=== PATIENT | male | born 1995 | race Caucasian/White ===

== ENCOUNTER 2016-08-12 19:21 | Inpatient (IN) | payer OTHER ==
[2016-08-12 19:47] VITALS: BMI 20.1
--- NOTE | 2016-08-12 20:39 | HP ---
COWS - Scale Resting Pulse: 1= [place] 81-100 Sweatin= Chills/Flushing Restless Observation: 3= Extraneous Movement Pupil Size: 1= Pupils >than Normal Bone or Joint Aches: 4=Acute Joint/Muscle Pain Runny Nose/ Eye Tearin= None GI Upset > 30mins: 3= Vomiting/Diarrhea Tremor Observation: 2= Slight Tremor Visible Yawning Observation: 0= None Anxiety or Irritability: 2=Irritable/Anxious Goose Flesh Skin: 0=Smooth Skin COWS Score: 17 CIWA Score - CIWA Score Nausea/Vomitin Muscle Tremors: 4-Moderate,w/Arms Extend Anxiety: 4-Mod. Anxious/Guarded Agitation: 4-Moderately Restless Paroxysmal Sweats: 3 Orientation: 1-Uncertain about Date Tacttile Disturbances: 1-Very Mild Itch/Numbness Auditory Disturbances: 1-Very Mild Visual Disturbances: 1-Very Mild Sensitivity Headache: 3-Moderate CIWA-Ar Total Score: 25 Admission ROS BHS - HPI Chief Complaint: WITHDRAWAL SX'S. SEEKING DETOX TXMENT Allergies/Adverse Reactions: Allergies Allergy/AdvReac Type Severity Reaction Status Date / Time No Known Allergies Allergy Verified 08/12/16 20:30 History of Present Illness: 20 Y.O. MALE WITH POLYSUBSTANCE ABUSE. HERE FOR DETOX FROM HEROIN AND XANAX. CLIENT STATES THIS IS HIS FIRST TIME IN DETOX. DENIES ANY CLEAN TIME. CLIENT IS ERITREAN SPEAKING. 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 Exam Limitations: No Limitations - Ebola screening Have you traveled outside of the country in the last 21 days: No Have you had contact with anyone from an Ebola affected area: No Have you been sick,other than usual withdrawal symptoms: No Do you have a fever: No - Review of Systems Constitutional: Chills, Loss of Appetite, Malaise, Night Sweats, Changes in sleep EENT: reports: No Symptoms Reported Respiratory: reports: No Symptoms reported Cardiac: reports: No Symptoms Reported GI: reports: Poor Appetite, Poor Fluid Intake, Indigestion, Abdominal cramping : reports: No Symptoms Reported Musculoskeletal: reports: Back Pain Integumentary: reports: No Symptoms Reported Neuro: reports: No Symptoms reported Endocrine: reports: No Symptoms Reported Hematology: reports: No Symptoms Reported Psychiatric: reports: Anxious Other Systems: Reviewed and Negative Patient History - Patient Medical History Hx Anemia: No Hx Asthma: No Hx Chronic Obstructive Pulmonary Disease (COPD): No Hx Cancer: No Hx Cardiac Disorders: No Hx Congestive Heart Failure: No Hx Hypertension: No Hx Hypercholesterolemia: No Hx Pacemaker: No HX Cerebrovascular Accident: No Hx Seizures: No Hx Dementia: No Hx Diabetes: No Hx Gastrointestinal Disorders: No Hx Liver Disease: No Hx Genitourinary Disorders: No Hx Sexually Transmitted Disorders: No Hx Renal Disease (ESRD): No Hx Thyroid Disease: No Hx Human Immunodeficiency Virus (HIV): No Hx Hepatitis C: No Hx Depression: No Hx Suicide Attempt: No Hx Bipolar Disorder: No Hx Schizophrenia: No Other Medical History: ANXIETY - Patient Surgical History Past Surgical History: No - PPD History Previous Implant?: Yes Documented Results: Negative w/o proof Implanted On Prior [facility] Admission?: No PPD to be Administered?: Yes - Smoking Cessation Smoking history: Current every day smoker Aproximately how many cigarettes per day: 20 Cigars Per Day: 0 Hx Chewing Tobacco Use: No Initiated information on smoking cessation: Yes 'Breaking Loose' booklet given: 08/12/16 - Substance & Tx. History Hx Alcohol Use: No Hx Substance Use: Yes Substance Use Type: Heroin, Tranquilizers (XANAX) - Substances Abused HEROIN Route: Injection Frequency: Daily Amount used: 8 BAGS Age of first use: 17 Date of Last Use: 08/11/16 XANAX Route: Oral Frequency: Daily Amount used: 8 MG Age of first use: 20 Date of Last Use: 08/11/16 Family Disease History - Family Disease History Family History: Unable to Obtain Admission Physical Exam BHS - Vital Signs Vital Signs: Vital Signs - 24 hr 08/12/16 19:45 Temperature 98.5 F Pulse Rate 100 H Respiratory 18 Rate Blood Pressure 131/80 - Physical General Appearance: Yes: Mild Distress, Thin, Tremorous, Anxious HEENTM: Yes: Normocephalic, VELMA, Pharynx Normal, Other (LARGE PUPILS) Respiratory: Yes: Chest Non-Tender, Lungs Clear, Normal Breath Sounds, No Respiratory Distress, No Accessory Muscle Use Neck: Yes: No masses,lesions,Nodules, Supple, Trachea in good position Breast: Yes: Breast Exam Deferred Cardiology: Yes: Regular Rhythm, S1, S2, Tachycardia Abdominal: Yes: Normal Bowel Sounds, Non Tender, Flat, Soft, Increased Bowel Sounds Genitourinary: Yes: Within Normal Limits Back: Yes: Normal Inspection Musculoskeletal: Yes: full range of Motion, Gait Steady Extremities: Yes: Normal Capillary Refill, Normal Range of Motion, Non-Tender, Tremors Neurological: Yes: Alert, Motor Strength 5/5 Integumentary: Yes: Normal Color, Warm, Moist, Track Abdi Lymphatic: Yes: Within Normal Limits - Diagnostic (1) Opioid dependence with withdrawal Current Visit: Yes Status: Chronic (2) Cannabis dependence, uncomplicated Current Visit: Yes Status: Chronic (3) Sedative, hypnotic or anxiolytic dependence with withdrawal, uncomplicated Current Visit: Yes Status: Chronic (4) Nicotine dependence Current Visit: Yes Status: Chronic Qualifiers: Nicotine product type: cigarettes Substance use status: uncomplicated Qualified Code(s): F17.210 - Nicotine dependence, cigarettes, uncomplicated Cleared for Admission [facility] - Detox or Rehab [facility] Level of Care: Medically Managed Detox Regimen/Protocol: Methadone/Valium [facility] Breath Alcohol Content Breath Alcohol Content: 0 Urine Drug Screen - Results Urine Drug Screen Results: OPI-Opiates, BZO-Benzodiazepines, TCA-Tricyclic Antidepress, OXY-Oxycodone
[2016-08-12] MEDS ORDERED: P-EPHED 60MG/TRIPROLIDI 2.5MG TABLET PO PRN (21:02)
[2016-08-12] MEDS ORDERED: MAG HYDROX/AL HYDROX/SIMETH 30 ML UNIT-DOSE CUP PO PRN (21:02)
[2016-08-12] MEDS ORDERED: METHADONE HCL 10 MG TABLET (FOR DETOX USE ONLY) PO ONE ×2 (21:02→23:00)
[2016-08-12] MEDS ORDERED: diphenhydrAMINE HCL 50 MG CAPSULE PO PRN (21:02)
[2016-08-12] MEDS ORDERED: LOPERAMIDE HCL 2 MG CAPSULE PO PRN (21:02)
[2016-08-12] MEDS ORDERED: diazePAM 5 MG TABLET PO ONE (21:02)
[2016-08-12] MEDS ORDERED: MENTHOL/PHENOL 1 EACH UD MM PRN (21:02)
[2016-08-12] MEDS ORDERED: guaiFENesin/D-METHORPHAN HB 10 ML UNIT-DOSE CUPS PO PRN (21:02)
[2016-08-12] MEDS ORDERED: MAGNESIUM HYDROX 2400MG/30ML ORAL SUSPENSION 30 ML CUP PO PRN (21:02)
[2016-08-12] MEDS ORDERED: hydrOXYzine PAMOATE 50 MG CAPSULE (FP) PO PRN (21:02)
[2016-08-12] MEDS ORDERED: MAGNESIUM CITRATE 300 ML BOTTLE PO PRN (21:02)
[2016-08-12] MEDS ORDERED: NICOTINE POLACRILEX 2 MG GUM BC PRN (21:02)
[2016-08-12] MEDS: THIAMINE HCL 100 MG TABLET (FP) PO SCH (21:34)
[2016-08-12] MEDS: ACETAMINOPHEN 325 MG TABLET (FP) PO PRN (21:38)
[2016-08-12] MEDS: NICOTINE 21 MG/24 HOURS TOPICAL PATCH TD SCH (21:47)
[2016-08-12] MEDS: diazePAM 5 MG TABLET PO SCH (22:46)
[2016-08-12 23:35] LABS: URINE APPEARANCE CLEAR; URINE BILIRUBIN NEGATIVE (NEGATIVE); URINE BLOOD NEGATIVE (NEGATIVE); URINE COLOR LTYELLOW; URINE GLUCOSE (UA) NEGATIVE (NEGATIVE); URINE KETONE NEGATIVE (NEGATIVE); URINE LEUK ESTERASE NEGATIVE (NEGATIVE); URINE NITRITE NEGATIVE (NEGATIVE); URINE UROBILINOGEN NEGATIVE E.U./dl (0.2-1.0)
[2016-08-12 23:36] LABS: URINE PROTEIN 1+ (NEGATIVE)
[2016-08-12 23:38] LABS: URINE MUCUS FEW; URINE RBC 1 /hpf (0-3); URINE WBC <1 /hpf (3-5)
[2016-08-13] MEDS: diazePAM 5 MG TABLET PO SCH ×3 (05:52→22:18)
[2016-08-13 09:14] LABS: MCH 30.2 pg (25.7-33.7); MEAN CELL VOLUME 91.4 fl (80-96); MEAN PLT VOLUME 7.9 fl (7.5-11.1); PLATELET COUNT 283 K/MM3 (134-434); RDW 15.4 % (11.9-15.9); WHITE BLOOD COUNT 4.4 K/mm3 (4.0-10.0)
[2016-08-13 09:20] LABS: ALBUMIN 3.5 g/dl (3.4-5.0); ANION GAP 8 (8-16); BILIRUBIN,TOTAL 0.4 mg/dL (0.2-1.0); CO2 30 mmol/L (21-32); CREATININE 0.7 mg/dL (0.7-1.3); GLUCOSE,RANDOM 80 mg/dL (74-106); SGOT/AST 32 U/L (15-37); SGPT/ALT 32 U/L (12-78); TOT PROT 7.3 g/dl (6.4-8.2)
[2016-08-13 09:21] LABS: ALK PHOS 116 U/L (45-117)
[2016-08-13] MEDS ORDERED: METHADONE HCL 10 MG TABLET (FOR DETOX USE ONLY) PO SCH (10:00)
[2016-08-13] MEDS: NICOTINE 21 MG/24 HOURS TOPICAL PATCH TD SCH (10:10)
[2016-08-13] MEDS: PRENATAL VITAMINS W/ FOLIC ACID TABLET (FP) PO SCH (10:11)
[2016-08-13] MEDS: diazePAM 5 MG TABLET PO PRN (10:11)
--- NOTE | 2016-08-13 10:35 | CONSULT ---
[facility] Psychiatric Consult - Data Date of interview: 08/13/16 Admission source: [facility] Identifying data: First admission to [facility] for this 20 y/o male seeking detox treatment on for heroin,marijuana and benzodiazepine ( xanax) dependence.Patient is without children,homeless (lives in prison with ),unemployed and reportedly deprived of any source of income. Substance Abuse History: - Smoking Cessation. Smoking history: Current every day smoker. Aproximately how many cigarettes per day: 20. Cigars Per Day: 0. Hx Chewing Tobacco Use: No. Initiated information on smoking cessation: Yes. ' Breaking Loose' booklet given: 08/12/16. - Substance & Tx. History. Hx Alcohol Use: No. Hx Substance Use: Yes. Substance Use Type: Heroin, Tranquilizers (XANAX). - Substances Abused. HEROIN. Route: Injection. Frequency: Daily. Amount used: 8 BAGS. Age of first use: 17. Date of Last Use : 08/11/16. XANAX. Route: Oral. Frequency: Daily. Amount used: 8 MG. Age of first use: 20. Date of Last Use: 08/11/16. Discussed in session.Patient confirms this pattern of substance abuse. Medical History: Patient reports good general health. Psychiatric History: Patient denies. Physical/Sexual Abuse/Trauma History: No reported history of sexual abuse. Additional Comment: Urine Drug Screen Results: OPI-Opiates, BZO-Benzodiazepines , TCA-Tricyclic Antidepress, OXY-Oxycodone.Noted. Mental Status Exam - Mental Status Exam Alert and Oriented to: Time, Place, Person Cognitive Function: Good Patient Appearance: Disheveled (tattoos on arms) Mood: Nervous, Withdrawn, Irritable Affect: Mood Congruent Patient Behavior: Fatigued, Guarded Speech Pattern: Clear (in lao;limited ability to speak turkish) Voice Loudness: Normal Thought Process: Goal Oriented Thought Disorder: Not Present Hallucinations: Denies Suicidal Ideation: Denies Homicidal Ideation: Denies Insight/Judgement: Poor Sleep: Poorly, Difficulty falling asleep Appetite: Fair Muscle strength/Tone: Normal Gait/Station: Normal Psychiatric Findings - Problem List ([place] 1, 2,3) (1) Cannabis dependence, uncomplicated Current Visit: Yes Status: Acute (2) Nicotine dependence Current Visit: Yes Status: Acute Qualifiers: Nicotine product type: cigarettes Substance use status: uncomplicated Qualified Code(s): F17.210 - Nicotine dependence, cigarettes, uncomplicated (3) Opioid dependence with withdrawal Current Visit: Yes Status: Acute (4) Sedative, hypnotic or anxiolytic dependence with withdrawal, uncomplicated Current Visit: Yes Status: Acute (5) Insomnia Current Visit: Yes Status: Acute - Initial Treatment Plan Initial Treatment Plan: Psychoeducation.Detoxification.Insomnia is addressed with zolpidem 5 mg po hs prn (no scripts at discharge).Patient made aware of the time-limited aspect of ambien use (hospital course)and the risk of parasomnias.He agrees with this careplan.Observation.
--- NOTE | 2016-08-13 10:46 | PN ---
S CIWA - CIWA Score Nausea/Vomitin Muscle Tremors: 4-Moderate,w/Arms Extend Anxiety: 4-Mod. Anxious/Guarded Agitation: 4-Moderately Restless Paroxysmal Sweats: 3 Orientation: 0-Oriented Tacttile Disturbances: 1-Very Mild Itch/Numbness Auditory Disturbances: 0-None Visual Disturbances: 0-None Headache: 0-None Present CIWA-Ar Total Score: 19 BHS COWS - Scale Resting Pulse: 1= [place] 81-100 Sweatin= Chills/Flushing Restless Observation: 1= Difficult to Sit Still Pupil Size: 1= Pupils >than Normal Bone or Joint Aches: 1= Mild Discomfort Runny Nose/ Eye Tearin= Nasal Congestion GI Upset > 30mins: 2= Nausea/Diarrhea Tremor Observation of Outstretched Hands: 2= Slight Tremor Visible Yawning Observation: 1= 1-2x During Session Anxiety or Irritability: 2=Irritable/Anxious Goose Flesh Skin: 3=Piloerection COWS Score: 16 S Progress Note (SOAP) Subjective: nausea, sweats, interrupted sleep, anxiety, tremors Objective: 08/13/16 10:45 Vital Signs - 24 hr 08/12/16 08/12/16 08/13/16 19:45 22:15 00:13 Temperature 98.5 F 98.6 F Pulse Rate 100 H 96 H Respiratory 18 18 18 Rate Blood Pressure 131/80 130/78 08/13/16 08/13/16 08/13/16 03:33 06:20 09:48 Temperature 97.0 F L 96.4 F L Pulse Rate 59 L 85 Respiratory 18 16 18 Rate Blood Pressure 108/68 115/64 Laboratory Tests 08/12/16 08/13/16 08/13/16 22:12 07:45 07:45 WBC 4.4 RBC 4.76 Hgb 14.4 Hct 43.5 MCV 91.4 MCHC 33.0 RDW 15.4 Plt Count 283 MPV 7.9 Sodium 139 Potassium 4.9 Chloride 101 Carbon Dioxide 30 Anion Gap 8 BUN 11 Creatinine 0.7 Creat Clearance w eGFR > 60 Random Glucose 80 Calcium 9.0 Total Bilirubin 0.4 AST 32 ALT 32 Alkaline Phosphatase 116 Total Protein 7.3 Albumin 3.5 Urine Color Ltyellow Urine Appearance Clear Urine pH 9.0 H Ur Specific [place] 1.018 Urine Protein 1+ H Urine Glucose (UA) Negative Urine Ketones Negative Urine Blood Negative Urine Nitrite Negative Urine Bilirubin Negative Urine Urobilinogen Negative Ur Leukocyte Esterase Negative Urine RBC 1 Urine WBC <1 Urine Mucus Few Assessment: 08/13/16 10:45 withdrawal sx Plan: cont detox, fluids, ensure
--- NOTE | 2016-08-13 10:47 | EKG ---
Test Reason : Blood Pressure : / mmHG Vent. Rate : 093 BPM Atrial Rate : 093 BPM P-R Int : 148 ms QRS Dur : 094 ms QT Int : 350 ms P-R-T Axes : 074 073 051 degrees QTc Int : 435 ms NORMAL SINUS RHYTHM NO PREVIOUS ECGS AVAILABLE Confirmed by HERB JOSE MD ([id number]) on 08/13/2016 10:46:49 AM Referred By: Isidoro Arias Confirmed By:HERB JOSE MD
[2016-08-13] MEDS ORDERED: ZOLPIDEM TARTRATE 5 MG TABLET PO PRN (22:00)
[2016-08-13] MEDS: THIAMINE HCL 100 MG TABLET (FP) PO SCH (22:18)
[2016-08-14] MEDS: diazePAM 5 MG TABLET PO PRN ×3 (06:11→19:30)
[2016-08-14] MEDS: ACETAMINOPHEN 325 MG TABLET (FP) PO PRN (08:00)
[2016-08-14] MEDS: PRENATAL VITAMINS W/ FOLIC ACID TABLET (FP) PO SCH (10:10)
[2016-08-14] MEDS: METHADONE HCL 5 MG TABLET (FOR DETOX USE ONLY) PO SCH (10:10)
[2016-08-14] MEDS: diazePAM 5 MG TABLET PO SCH ×2 (10:10→22:29)
[2016-08-14] MEDS: NICOTINE 21 MG/24 HOURS TOPICAL PATCH TD SCH (10:11)
--- NOTE | 2016-08-14 11:21 | PN ---
S CIWA - CIWA Score Nausea/Vomitin Muscle Tremors: 4-Moderate,w/Arms Extend Anxiety: 4-Mod. Anxious/Guarded Agitation: 4-Moderately Restless Paroxysmal Sweats: 3 Orientation: 0-Oriented Tacttile Disturbances: 1-Very Mild Itch/Numbness Auditory Disturbances: 0-None Visual Disturbances: 0-None Headache: 0-None Present CIWA-Ar Total Score: 19 BHS COWS - Scale Resting Pulse: 1= [place] 81-100 Sweatin= Chills/Flushing Restless Observation: 1= Difficult to Sit Still Pupil Size: 1= Pupils >than Normal Bone or Joint Aches: 1= Mild Discomfort Runny Nose/ Eye Tearin= Nasal Congestion GI Upset > 30mins: 2= Nausea/Diarrhea Tremor Observation of Outstretched Hands: 2= Slight Tremor Visible Yawning Observation: 1= 1-2x During Session Anxiety or Irritability: 2=Irritable/Anxious Goose Flesh Skin: 3=Piloerection COWS Score: 16 S Progress Note (SOAP) Subjective: nausea, sweats, interrupted sleep, anxiety, tremors Objective: 08/14/16 11:20 Vital Signs - 24 hr 08/13/16 08/13/16 08/13/16 14:20 16:58 22:32 Temperature 97.3 F L 98.2 F 98.3 F Pulse Rate 70 86 78 Respiratory 20 18 18 Rate Blood Pressure 119/72 123/71 130/78 08/14/16 08/14/16 03:30 06:32 Temperature 96.4 F L Pulse Rate 57 L Respiratory 18 16 Rate Blood Pressure 123/78 Laboratory Tests 08/12/16 08/13/16 08/13/16 22:12 07:45 07:45 WBC 4.4 RBC 4.76 Hgb 14.4 Hct 43.5 MCV 91.4 MCHC 33.0 RDW 15.4 Plt Count 283 MPV 7.9 Sodium 139 Potassium 4.9 Chloride 101 Carbon Dioxide 30 Anion Gap 8 BUN 11 Creatinine 0.7 Creat Clearance w eGFR > 60 Random Glucose 80 Calcium 9.0 Total Bilirubin 0.4 AST 32 ALT 32 Alkaline Phosphatase 116 Total Protein 7.3 Albumin 3.5 Urine Color Ltyellow Urine Appearance Clear Urine pH 9.0 H Ur Specific [place] 1.018 Urine Protein 1+ H Urine Glucose (UA) Negative Urine Ketones Negative Urine Blood Negative Urine Nitrite Negative Urine Bilirubin Negative Urine Urobilinogen Negative Ur Leukocyte Esterase Negative Urine RBC 1 Urine WBC <1 Urine Mucus Few RPR Titer 08/13/16 07:45 WBC RBC Hgb Hct MCV MCHC RDW Plt Count MPV Sodium Potassium Chloride Carbon Dioxide Anion Gap BUN Creatinine Creat Clearance w eGFR Random Glucose Calcium Total Bilirubin AST ALT Alkaline Phosphatase Total Protein Albumin Urine Color Urine Appearance Urine pH Ur Specific [place] Urine Protein Urine Glucose (UA) Urine Ketones Urine Blood Urine Nitrite Urine Bilirubin Urine Urobilinogen Ur Leukocyte Esterase Urine RBC Urine WBC Urine Mucus RPR Titer Nonreactive Assessment: 08/14/16 11:21 withdrawal sx Plan: cont detox, fluids, encoruage ambulation
[2016-08-14] MEDS: THIAMINE HCL 100 MG TABLET (FP) PO SCH (22:29)
[2016-08-14] MEDS: IBUPROFEN 400 MG TABLET (FP) PO PRN (22:31)
[2016-08-15] MEDS: IBUPROFEN 400 MG TABLET (FP) PO PRN (07:40)
[2016-08-15] MEDS: diazePAM 5 MG TABLET PO PRN (07:43)
[2016-08-15] MEDS: PRENATAL VITAMINS W/ FOLIC ACID TABLET (FP) PO SCH (10:20)
[2016-08-15] MEDS: diazePAM 5 MG TABLET PO SCH (10:20)
[2016-08-15] MEDS: METHADONE HCL 5 MG TABLET (FOR DETOX USE ONLY) PO SCH (10:20)
[2016-08-15] MEDS: NICOTINE 21 MG/24 HOURS TOPICAL PATCH TD SCH (10:21)
--- NOTE | 2016-08-15 13:16 | PN ---
S Progress Note (SOAP) Subjective: Nausea, diarrhea, restless, interrupted sleep, sweating, tremor, anxious Objective: 08/15/16 13:12 Last Vital Signs Temp Pulse Resp BP Pulse Ox 96.8 F L 91 H 18 116/74 08/15/16 09:26 08/15/16 09:26 08/15/16 09:26 08/15/16 09:26 Laboratory Tests 08/12/16 08/13/16 08/13/16 22:12 07:45 07:45 WBC 4.4 RBC 4.76 Hgb 14.4 Hct 43.5 MCV 91.4 MCHC 33.0 RDW 15.4 Plt Count 283 MPV 7.9 Sodium 139 Potassium 4.9 Chloride 101 Carbon Dioxide 30 Anion Gap 8 BUN 11 Creatinine 0.7 Creat Clearance w eGFR > 60 Random Glucose 80 Calcium 9.0 Total Bilirubin 0.4 AST 32 ALT 32 Alkaline Phosphatase 116 Total Protein 7.3 Albumin 3.5 Urine Color Ltyellow Urine Appearance Clear Urine pH 9.0 H Ur Specific [place] 1.018 Urine Protein 1+ H Urine Glucose (UA) Negative Urine Ketones Negative Urine Blood Negative Urine Nitrite Negative Urine Bilirubin Negative Urine Urobilinogen Negative Ur Leukocyte Esterase Negative Urine RBC 1 Urine WBC <1 Urine Mucus Few RPR Titer 08/13/16 07:45 WBC RBC Hgb Hct MCV MCHC RDW Plt Count MPV Sodium Potassium Chloride Carbon Dioxide Anion Gap BUN Creatinine Creat Clearance w eGFR Random Glucose Calcium Total Bilirubin AST ALT Alkaline Phosphatase Total Protein Albumin Urine Color Urine Appearance Urine pH Ur Specific [place] Urine Protein Urine Glucose (UA) Urine Ketones Urine Blood Urine Nitrite Urine Bilirubin Urine Urobilinogen Ur Leukocyte Esterase Urine RBC Urine WBC Urine Mucus RPR Titer Nonreactive Labs noted: UA 1+ protein Assessment: 08/15/16 13:14 Withdrawal symptoms Noted with proteinuria Plan: Continue detox Proteinuria: encouraged to drink lots of water, repeat UA
--- NOTE | 2016-08-15 13:52 | DS ---
[facility] Detox Discharge Summary Admission Date: 08/12/16 Discharge Date: 08/15/16 - History Present History: Alcohol Dependence, Opioid Dependence Pertinent Past History: Denies - Physical Exam Results Vital Signs: Vital Signs Temperature 96.8 F L 08/15/16 09:26 Pulse Rate 91 H 08/15/16 09:26 Respiratory Rate 18 08/15/16 09:26 Blood Pressure 116/74 08/15/16 09:26 O2 Sat by Pulse Oximetry (%) Pertinent Admission Physical Exam Findings: Withdrawal symptoms Laboratory Tests 08/12/16 08/13/16 08/13/16 22:12 07:45 07:45 WBC 4.4 RBC 4.76 Hgb 14.4 Hct 43.5 MCV 91.4 MCHC 33.0 RDW 15.4 Plt Count 283 MPV 7.9 Sodium 139 Potassium 4.9 Chloride 101 Carbon Dioxide 30 Anion Gap 8 BUN 11 Creatinine 0.7 Creat Clearance w eGFR > 60 Random Glucose 80 Calcium 9.0 Total Bilirubin 0.4 AST 32 ALT 32 Alkaline Phosphatase 116 Total Protein 7.3 Albumin 3.5 Urine Color Ltyellow Urine Appearance Clear Urine pH 9.0 H Ur Specific [place] 1.018 Urine Protein 1+ H Urine Glucose (UA) Negative Urine Ketones Negative Urine Blood Negative Urine Nitrite Negative Urine Bilirubin Negative Urine Urobilinogen Negative Ur Leukocyte Esterase Negative Urine RBC 1 Urine WBC <1 Urine Mucus Few RPR Titer 08/13/16 07:45 WBC RBC Hgb Hct MCV MCHC RDW Plt Count MPV Sodium Potassium Chloride Carbon Dioxide Anion Gap BUN Creatinine Creat Clearance w eGFR Random Glucose Calcium Total Bilirubin AST ALT Alkaline Phosphatase Total Protein Albumin Urine Color Urine Appearance Urine pH Ur Specific [place] Urine Protein Urine Glucose (UA) Urine Ketones Urine Blood Urine Nitrite Urine Bilirubin Urine Urobilinogen Ur Leukocyte Esterase Urine RBC Urine WBC Urine Mucus RPR Titer Nonreactive Labs noted - Medication Discharge Medications: Ambulatory Orders NK [No Known Home Medication] 08/12/16 - Diagnosis (1) Opioid dependence with withdrawal Current Visit: Yes Status: Acute (2) Sedative, hypnotic or anxiolytic dependence with withdrawal, uncomplicated Current Visit: Yes Status: Acute (3) Nicotine dependence Current Visit: Yes Status: Chronic Qualifiers: Nicotine product type: cigarettes Substance use status: uncomplicated Qualified Code(s): F17.210 - Nicotine dependence, cigarettes, uncomplicated - AMA Did Patient Leave Against Medical Advice: Yes
[2016-08-15 13:55] VITALS: BP 128/74; PULSE 84; TEMP 97.5
[2016-08-16] MEDS ORDERED: diazePAM 5 MG TABLET PO SCH (10:00)
[2016-08-16] MEDS ORDERED: METHADONE HCL 10 MG TABLET (FOR DETOX USE ONLY) PO SCH (10:00)
[2016-08-17] MEDS ORDERED: METHADONE HCL 5 MG TABLET (FOR DETOX USE ONLY) PO SCH (06:00)
== END 2016-08-15 14:10 | disposition left against medical advice (07) | DRG 770 ==
LOC: YASAS 19:21 → Y3N 21:02
PROVIDERS: ADMIT Internal Medicine; ATTEND Internal Medicine
PROC: HZ2ZZZZ Detoxification Services for Substance Abuse Treatment (ICD-10-PCS; principal; 2016-08-15)
DX: F11.23 Opioid dependence with withdrawal (principal); F13.230 Sedative, hypnotic or anxiolytic dependence with withdrawal, uncomplicated; F12.20 Cannabis dependence, uncomplicated; F17.210 Nicotine dependence, cigarettes, uncomplicated; G47.00 Insomnia, unspecified
CPT/HCPCS: 36415; 80053; 81003; 81015; 85027; 86593; 93005; 93010

== ENCOUNTER 2017-11-13 15:12 | Inpatient (IN) | payer OTHER ==
[2017-11-13 18:17] VITALS: BMI 20.7
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
[2017-11-13] MEDS ORDERED: diazePAM 5 MG TABLET PO ONE (20:51)
[2017-11-13] MEDS ORDERED: METHADONE HCL 10 MG TABLET (FOR DETOX USE ONLY) PO ONE ×2 (20:51→23:00)
[2017-11-13] MEDS ORDERED: LOPERAMIDE HCL 2 MG CAPSULE PO PRN (20:51)
[2017-11-13] MEDS ORDERED: P-EPHED 60MG/TRIPROLIDI 2.5MG TABLET PO PRN (20:51)
[2017-11-13] MEDS ORDERED: MAGNESIUM CITRATE 300 ML BOTTLE PO PRN (20:51)
[2017-11-13] MEDS ORDERED: MAG HYDROX/AL HYDROX/SIMETH 30 ML UNIT-DOSE CUP PO PRN (20:51)
[2017-11-13] MEDS ORDERED: NICOTINE POLACRILEX 2 MG GUM BC PRN (20:51)
[2017-11-13] MEDS ORDERED: ACETAMINOPHEN 325 MG TABLET (FP) PO PRN (20:51)
[2017-11-13] MEDS ORDERED: MAGNESIUM HYDROX 2400MG/30ML ORAL SUSPENSION 30 ML CUP PO PRN (20:51)
[2017-11-13] MEDS ORDERED: guaiFENesin/D-METHORPHAN HB 10 ML UNIT-DOSE CUPS PO PRN (20:51)
[2017-11-13] MEDS ORDERED: MENTHOL/PHENOL 1 EACH UD MM PRN (20:51)
[2017-11-13] MEDS: BACITRACIN 0.9 GM PACKET TP SCH (21:07)
[2017-11-13] MEDS ORDERED: MELATONIN 5 MG TABLETS PO PRN (22:00)
[2017-11-13 22:50] LABS: URINE APPEARANCE CLEAR; URINE BILIRUBIN NEGATIVE (<2.0 mg/dL); URINE COLOR YELLOW; URINE GLUCOSE (UA) NEGATIVE (NEGATIVE); URINE KETONE NEGATIVE (NEGATIVE); URINE LEUK ESTERASE NEGATIVE (NEGATIVE); URINE NITRITE NEGATIVE (NEGATIVE); URINE PROTEIN NEGATIVE (NEGATIVE); URINE UROBILINOGEN 4.0 E.U/dl mg/dL (0.2-1.0)
[2017-11-13] MEDS: THIAMINE HCL 100 MG TABLET (FP) PO SCH (22:50)
[2017-11-13] MEDS: diazePAM 5 MG TABLET PO SCH (22:51)
[2017-11-14] MEDS: CEPHALEXIN MONOHYDRATE 500 MG CAPSULE (UD) PO SCH ×4 (06:26→23:28)
[2017-11-14] MEDS: diazePAM 5 MG TABLET PO SCH ×3 (06:26→22:19)
[2017-11-14 09:44] LABS: HEMATOCRIT 39.2 % (35.4-49); HEMOGLOBIN 13.1 GM/dL (11.7-16.9); MCHC 33.4 g/dl (32.0-35.9); MEAN CELL VOLUME 89.9 fl (80-96); MEAN PLT VOLUME 8.1 fl (7.5-11.1); PLATELET COUNT 330 K/MM3 (134-434); RBC 4.37 M/mm3 (4.00-5.60); RDW 14.5 % (11.9-15.9); WHITE BLOOD COUNT 5.3 K/mm3 (4.0-10.0)
[2017-11-14 09:51] LABS: CHLORIDE 108 mmol/L (98-107); POTASSIUM 4.2 mmol/L (3.5-5.1); SODIUM 141 mmol/L (136-145)
[2017-11-14] MEDS: BACITRACIN 0.9 GM PACKET TP SCH ×2 (09:58→22:19)
[2017-11-14] MEDS: PRENATAL VITAMINS W/ FOLIC ACID TABLET (FP) PO SCH (09:58)
[2017-11-14] MEDS: diazePAM 5 MG TABLET PO PRN ×2 (09:58→17:16)
[2017-11-14] MEDS ORDERED: METHADONE HCL 10 MG TABLET (FOR DETOX USE ONLY) PO SCH (10:00)
[2017-11-14 10:01] LABS: ALBUMIN 3.1 g/dl (3.4-5.0); ALK PHOS 118 U/L (45-117); ANION GAP 4 (8-16); BILIRUBIN,TOTAL 0.5 mg/dL (0.2-1.0); BLOOD UREA NITROGEN 12 mg/dL (7-18); CALCIUM 8.4 mg/dL (8.5-10.1); CO2 29 mmol/L (21-32); CREATININE 0.8 mg/dL (0.7-1.3); GLUCOSE,RANDOM 124 mg/dL (74-106); SGOT/AST 35 U/L (15-37); SGPT/ALT 32 U/L (12-78); TOT PROT 6.7 g/dl (6.4-8.2)
[2017-11-14] MEDS: NICOTINE 21 MG/24 HOURS TOPICAL PATCH TD SCH (10:02)
--- NOTE | 2017-11-14 10:47 | EKG ---
Test Reason : Blood Pressure : / mmHG Vent. Rate : 071 BPM Atrial Rate : 071 BPM P-R Int : 144 ms QRS Dur : 078 ms QT Int : 386 ms P-R-T Axes : 067 068 052 degrees QTc Int : 419 ms SINUS RHYTHM WITH MARKED SINUS ARRHYTHMIA OTHERWISE NORMAL ECG WHEN COMPARED WITH ECG OF 15-SEP-2016 07:19, NO SIGNIFICANT CHANGE WAS FOUND Confirmed by SLY HU MD ([id number]) on 11/14/2017 10:46:34 AM Referred By: Confirmed By:SLY HU MD
--- NOTE | 2017-11-14 12:00 | PN ---
[facility] CIWA - CIWA Score Nausea/Vomitin-No Nausea/No Vomiting Muscle Tremors: 4-Moderate,w/Arms Extend Anxiety: 4-Mod. Anxious/Guarded Agitation: 4-Moderately Restless Paroxysmal Sweats: 1-Minimal Palms Moist Orientation: 0-Oriented Tacttile Disturbances: 0-None Auditory Disturbances: 0-None Visual Disturbances: 0-None Headache: 0-None Present CIWA-Ar Total Score: 13 S COWS - Scale Resting Pulse: 0= NE 80 or Below Sweatin= Chills/Flushing Restless Observation: 3= Extraneous Movement Pupil Size: 2= Moderately Dilated Bone or Joint Aches: 1= Mild Discomfort Runny Nose/ Eye Tearin= None GI Upset > 30mins: 0= None Tremor Observation of Outstretched Hands: 2= Slight Tremor Visible Yawning Observation: 1= 1-2x During Session Anxiety or Irritability: 2=Irritable/Anxious Goose Flesh Skin: 0=Smooth Skin COWS Score: 12 S Progress Note (SOAP) Subjective: ANXIETY,SWEATS, MEDS EFFECTIVE FOR WITHDRAWAL SX. Objective: 11/14/17 11:59 Vital Signs Temperature 96.1 F L 11/14/17 09:34 Pulse Rate 73 11/14/17 09:34 Respiratory Rate 18 11/14/17 09:34 Blood Pressure 122/79 11/14/17 09:34 O2 Sat by Pulse Oximetry (%) Laboratory Tests 11/13/17 11/14/17 11/14/17 21:40 07:00 07:00 WBC 5.3 D RBC 4.37 Hgb 13.1 Hct 39.2 MCV 89.9 MCH 30.0 MCHC 33.4 RDW 14.5 Plt Count 330 MPV 8.1 Sodium Potassium Chloride Carbon Dioxide Anion Gap BUN Creatinine Creat Clearance w eGFR Random Glucose Calcium Total Bilirubin AST ALT Alkaline Phosphatase Total Protein Albumin Urine Color Yellow Urine Appearance Clear Urine pH 6.0 Ur Specific [place] 1.017 Urine Protein Negative Urine Glucose (UA) Negative Urine Ketones Negative Urine Blood Negative Urine Nitrite Negative Urine Bilirubin Negative Urine Urobilinogen 4.0 e.u/dl Ur Leukocyte Esterase Negative RPR Titer HIV 1&2 Antibody Screen Negative HIV P24 Antigen Negative 11/14/17 11/14/17 07:00 08:00 WBC RBC Hgb Hct MCV MCH MCHC RDW Plt Count MPV Sodium 141 Potassium 4.2 Chloride 108 H Carbon Dioxide 29 Anion Gap 4 L BUN 12 D Creatinine 0.8 Creat Clearance w eGFR > 60 Random Glucose 124 H Calcium 8.4 L Total Bilirubin 0.5 D AST 35 D ALT 32 Alkaline Phosphatase 118 H D Total Protein 6.7 Albumin 3.1 L Urine Color Urine Appearance Urine pH Ur Specific [place] Urine Protein Urine Glucose (UA) Urine Ketones Urine Blood Urine Nitrite Urine Bilirubin Urine Urobilinogen Ur Leukocyte Esterase RPR Titer Nonreactive HIV 1&2 Antibody Screen HIV P24 Antigen OTHER LAB RESULTS PENDING Assessment: 11/14/17 12:00 WITHDRAWAL SX Plan: CONTINUE DETOX
[2017-11-14] MEDS: hydrOXYzine PAMOATE 50 MG CAPSULE (FP) PO PRN (17:16)
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
[2017-11-14] MEDS: ZOLPIDEM TARTRATE 10 MG TABLET (PARK CARE ONLY) PO PRN (22:19)
[2017-11-14] MEDS: THIAMINE HCL 100 MG TABLET (FP) PO SCH (22:19)
[2017-11-15] MEDS: CEPHALEXIN MONOHYDRATE 500 MG CAPSULE (UD) PO SCH ×4 (06:10→23:08)
[2017-11-15] MEDS: diazePAM 5 MG TABLET PO PRN ×3 (06:11→17:17)
--- NOTE | 2017-11-15 09:55 | EKG ---
Test Reason : Blood Pressure : / mmHG Vent. Rate : 083 BPM Atrial Rate : 083 BPM P-R Int : 138 ms QRS Dur : 086 ms QT Int : 358 ms P-R-T Axes : 061 064 043 degrees QTc Int : 420 ms NORMAL SINUS RHYTHM NORMAL ECG WHEN COMPARED WITH ECG OF 13-NOV-2017 20:59, NO SIGNIFICANT CHANGE WAS FOUND Confirmed by MD Mckinney Edward ([id number]) on 11/15/2017 9:54:37 AM Referred By: Confirmed By:Dilshad Mckinney MD
[2017-11-15] MEDS: PRENATAL VITAMINS W/ FOLIC ACID TABLET (FP) PO SCH (10:24)
[2017-11-15] MEDS: diazePAM 5 MG TABLET PO SCH ×2 (10:25→22:22)
[2017-11-15] MEDS: NICOTINE 21 MG/24 HOURS TOPICAL PATCH TD SCH (10:25)
[2017-11-15] MEDS: METHADONE HCL 5 MG TABLET (FOR DETOX USE ONLY) PO SCH (10:25)
[2017-11-15] MEDS: BACITRACIN 0.9 GM PACKET TP SCH ×2 (10:25→22:22)
[2017-11-15] MEDS: hydrOXYzine PAMOATE 50 MG CAPSULE (FP) PO PRN (14:07)
[2017-11-15] MEDS: IBUPROFEN 400 MG TABLET (FP) PO PRN (15:37)
[2017-11-15] MEDS ORDERED: cloNIDine HCL 0.1 MG TABLET PO PRN (15:46)
[2017-11-15] MEDS ORDERED: CYCLOBENZAPRINE HCL 10 MG TABLET (FP) PO PRN (15:47)
--- NOTE | 2017-11-15 15:50 | PN ---
[facility] CIWA - CIWA Score Nausea/Vomitin-No Nausea/No Vomiting Muscle Tremors: 4-Moderate,w/Arms Extend Anxiety: 5 Agitation: 4-Moderately Restless Paroxysmal Sweats: 1-Minimal Palms Moist Orientation: 0-Oriented Tacttile Disturbances: 3-Moderate Itch/Numb/Burn Auditory Disturbances: 0-None Visual Disturbances: 0-None Headache: 0-None Present CIWA-Ar Total Score: 17 BHS COWS - Scale Resting Pulse: 2= [place] 101-120 Sweatin= Chills/Flushing Restless Observation: 3= Extraneous Movement Pupil Size: 2= Moderately Dilated Bone or Joint Aches: 4=Acute Joint/Muscle Pain Runny Nose/ Eye Tearin= None GI Upset > 30mins: 1= Stomach Cramp Tremor Observation of Outstretched Hands: 2= Slight Tremor Visible Yawning Observation: 1= 1-2x During Session Anxiety or Irritability: 2=Irritable/Anxious Goose Flesh Skin: 0=Smooth Skin COWS Score: 18 S Progress Note (SOAP) Subjective: PT C/O IRRITABILITY, ANXIETY,HOT/COLD CHILLS,MUSCLE ACHES,ABDOMINAL CRAMPS, INTERMITTENT SLEEP. Objective: 11/15/17 15:44 Vital Signs 11/15/17 11/15/17 09:10 14:10 Temperature 96.2 F L 98.4 F Pulse Rate 72 104 H Respiratory 16 18 Rate Blood Pressure 116/70 130/77 Laboratory Tests 11/13/17 11/14/17 11/14/17 21:40 07:00 07:00 WBC 5.3 D RBC 4.37 Hgb 13.1 Hct 39.2 MCV 89.9 MCH 30.0 MCHC 33.4 RDW 14.5 Plt Count 330 MPV 8.1 Sodium Potassium Chloride Carbon Dioxide Anion Gap BUN Creatinine Creat Clearance w eGFR Random Glucose Calcium Total Bilirubin AST ALT Alkaline Phosphatase Total Protein Albumin Urine Color Yellow Urine Appearance Clear Urine pH 6.0 Ur Specific [place] 1.017 Urine Protein Negative Urine Glucose (UA) Negative Urine Ketones Negative Urine Blood Negative Urine Nitrite Negative Urine Bilirubin Negative Urine Urobilinogen 4.0 e.u/dl Ur Leukocyte Esterase Negative RPR Titer HIV 1&2 Antibody Screen Negative HIV P24 Antigen Negative 11/14/17 11/14/17 07:00 08:00 WBC RBC Hgb Hct MCV MCH MCHC RDW Plt Count MPV Sodium 141 Potassium 4.2 Chloride 108 H Carbon Dioxide 29 Anion Gap 4 L BUN 12 D Creatinine 0.8 Creat Clearance w eGFR > 60 Random Glucose 124 H Calcium 8.4 L Total Bilirubin 0.5 D AST 35 D ALT 32 Alkaline Phosphatase 118 H D Total Protein 6.7 Albumin 3.1 L Urine Color Urine Appearance Urine pH Ur Specific [place] Urine Protein Urine Glucose (UA) Urine Ketones Urine Blood Urine Nitrite Urine Bilirubin Urine Urobilinogen Ur Leukocyte Esterase RPR Titer Nonreactive HIV 1&2 Antibody Screen HIV P24 Antigen LABS NOTED. Assessment: 11/15/17 15:45 WITHDRAWAL SX Plan: CONTINUE DETOX FLEXERIL 10 MG PO Q8H PRN CLONIDINE 0.1 MG PO BID PRN INCREASE PO FLUIDS ENSURE PLUS 120 ML PO TID
[2017-11-15] MEDS: THIAMINE HCL 100 MG TABLET (FP) PO SCH (22:22)
[2017-11-15] MEDS: ZOLPIDEM TARTRATE 10 MG TABLET (PARK CARE ONLY) PO PRN (22:22)
[2017-11-16] MEDS: diazePAM 5 MG TABLET PO PRN ×3 (01:57→12:30)
[2017-11-16] MEDS: hydrOXYzine PAMOATE 50 MG CAPSULE (FP) PO PRN (03:30)
[2017-11-16] MEDS: IBUPROFEN 400 MG TABLET (FP) PO PRN (05:55)
[2017-11-16] MEDS: CEPHALEXIN MONOHYDRATE 500 MG CAPSULE (UD) PO SCH ×2 (05:59→12:30)
[2017-11-16] MEDS: METHADONE HCL 5 MG TABLET (FOR DETOX USE ONLY) PO SCH (10:42)
[2017-11-16] MEDS: PRENATAL VITAMINS W/ FOLIC ACID TABLET (FP) PO SCH (10:42)
[2017-11-16] MEDS: diazePAM 5 MG TABLET PO SCH (10:42)
[2017-11-16] MEDS: BACITRACIN 0.9 GM PACKET TP SCH (10:42)
[2017-11-16] MEDS: NICOTINE 21 MG/24 HOURS TOPICAL PATCH TD SCH (10:43)
--- NOTE | 2017-11-16 13:14 | PN ---
BHS Progress Note (SOAP) Subjective: SLIGHT ANXIETY, CHILLS. OOB AMBULATING ON THE UNIT WITH NAD. Objective: 11/16/17 13:13 Vital Signs Temperature 96.4 F L 11/16/17 09:45 Pulse Rate 85 11/16/17 09:45 Respiratory Rate 18 11/16/17 09:45 Blood Pressure 124/69 11/16/17 09:45 O2 Sat by Pulse Oximetry (%) Laboratory Tests 11/13/17 11/14/17 11/14/17 21:40 07:00 07:00 WBC 5.3 D RBC 4.37 Hgb 13.1 Hct 39.2 MCV 89.9 MCH 30.0 MCHC 33.4 RDW 14.5 Plt Count 330 MPV 8.1 Sodium Potassium Chloride Carbon Dioxide Anion Gap BUN Creatinine Creat Clearance w eGFR POC Glucometer Random Glucose Calcium Total Bilirubin AST ALT Alkaline Phosphatase Total Protein Albumin Urine Color Yellow Urine Appearance Clear Urine pH 6.0 Ur Specific [place] 1.017 Urine Protein Negative Urine Glucose (UA) Negative Urine Ketones Negative Urine Blood Negative Urine Nitrite Negative Urine Bilirubin Negative Urine Urobilinogen 4.0 e.u/dl Ur Leukocyte Esterase Negative RPR Titer HIV 1&2 Antibody Screen Negative HIV P24 Antigen Negative 11/14/17 11/14/17 11/16/17 07:00 08:00 05:55 WBC RBC Hgb Hct MCV MCH MCHC RDW Plt Count MPV Sodium 141 Potassium 4.2 Chloride 108 H Carbon Dioxide 29 Anion Gap 4 L BUN 12 D Creatinine 0.8 Creat Clearance w eGFR > 60 POC Glucometer 87 Random Glucose 124 H Calcium 8.4 L Total Bilirubin 0.5 D AST 35 D ALT 32 Alkaline Phosphatase 118 H D Total Protein 6.7 Albumin 3.1 L Urine Color Urine Appearance Urine pH Ur Specific [place] Urine Protein Urine Glucose (UA) Urine Ketones Urine Blood Urine Nitrite Urine Bilirubin Urine Urobilinogen Ur Leukocyte Esterase RPR Titer Nonreactive HIV 1&2 Antibody Screen HIV P24 Antigen IVD INJ SITES ABCESS HEALING WELL. Assessment: 11/16/17 13:13 WITHDRAWAL SX Plan: CONTINUE DETOX INCREASE PO FLUIDS CONTINUE SKIN CARE
[2017-11-16 13:49] VITALS: BP 119/74; PULSE 90; TEMP 96.6
--- NOTE | 2017-11-16 14:25 | DS ---
[facility] Detox Discharge Summary Admission Date: 11/13/17 Discharge Date: 11/16/17 - History Present History: Cocaine Dependence, Opioid Dependence Additional Comments: PT SIGNED OUT AMA FOR FAMILY PERSONAL REASONS. 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 PT WAS SEEN BY THE COUNSELOR. PT STATES HE WILL GO TO [facility] IN THE [place] FOR AFTERCARE. Pertinent Past History: PLEASE SEE DX BELOW - Physical Exam Results Vital Signs: Vital Signs Temperature 96.6 F L 11/16/17 13:48 Pulse Rate 90 11/16/17 13:48 Respiratory Rate 18 11/16/17 13:48 Blood Pressure 119/74 11/16/17 13:48 O2 Sat by Pulse Oximetry (%) Pertinent Admission Physical Exam Findings: WITHDRAWAL SX Laboratory Tests 11/13/17 11/14/17 11/14/17 21:40 07:00 07:00 WBC 5.3 D RBC 4.37 Hgb 13.1 Hct 39.2 MCV 89.9 MCH 30.0 MCHC 33.4 RDW 14.5 Plt Count 330 MPV 8.1 Sodium Potassium Chloride Carbon Dioxide Anion Gap BUN Creatinine Creat Clearance w eGFR POC Glucometer Random Glucose Calcium Total Bilirubin AST ALT Alkaline Phosphatase Total Protein Albumin Urine Color Yellow Urine Appearance Clear Urine pH 6.0 Ur Specific [place] 1.017 Urine Protein Negative Urine Glucose (UA) Negative Urine Ketones Negative Urine Blood Negative Urine Nitrite Negative Urine Bilirubin Negative Urine Urobilinogen 4.0 e.u/dl Ur Leukocyte Esterase Negative RPR Titer HIV 1&2 Antibody Screen Negative HIV P24 Antigen Negative 11/14/17 11/14/17 11/16/17 07:00 08:00 05:55 WBC RBC Hgb Hct MCV MCH MCHC RDW Plt Count MPV Sodium 141 Potassium 4.2 Chloride 108 H Carbon Dioxide 29 Anion Gap 4 L BUN 12 D Creatinine 0.8 Creat Clearance w eGFR > 60 POC Glucometer 87 Random Glucose 124 H Calcium 8.4 L Total Bilirubin 0.5 D AST 35 D ALT 32 Alkaline Phosphatase 118 H D Total Protein 6.7 Albumin 3.1 L Urine Color Urine Appearance Urine pH Ur Specific [place] Urine Protein Urine Glucose (UA) Urine Ketones Urine Blood Urine Nitrite Urine Bilirubin Urine Urobilinogen Ur Leukocyte Esterase RPR Titer Nonreactive HIV 1&2 Antibody Screen HIV P24 Antigen - Treatment Hospital Course: Discharged Condition Good - Medication Discharge Medications: Ambulatory Orders NK [No Known Home Medication] 08/12/16 - Diagnosis (1) Track ascencio due to intravenous drug abuse Status: Acute (2) Cocaine dependence with withdrawal Status: Acute (3) Nicotine dependence Status: Acute Qualifiers: Nicotine product type: cigarettes Substance use status: in withdrawal Qualified Code(s): F17.213 - Nicotine dependence, cigarettes, with withdrawal (4) Opioid dependence with withdrawal Status: Acute (5) Sedative, hypnotic or anxiolytic dependence with withdrawal, uncomplicated Status: Acute - AMA Did Patient Leave Against Medical Advice: Yes (AMA)
[2017-11-17] MEDS ORDERED: METHADONE HCL 10 MG TABLET (FOR DETOX USE ONLY) PO SCH (10:00)
[2017-11-17] MEDS ORDERED: diazePAM 5 MG TABLET PO SCH (10:00)
[2017-11-18] MEDS ORDERED: METHADONE HCL 5 MG TABLET (FOR DETOX USE ONLY) PO SCH (06:00)
== END 2017-11-16 14:15 | disposition left against medical advice (07) | DRG 770 ==
LOC: YASAS 15:12 → Y3N 18:16
PROVIDERS: ADMIT Internal Medicine; ATTEND Internal Medicine
PROC: HZ2ZZZZ Detoxification Services for Substance Abuse Treatment (ICD-10-PCS; principal; 2017-11-13)
DX: F11.23 Opioid dependence with withdrawal (principal); F13.230 Sedative, hypnotic or anxiolytic dependence with withdrawal, uncomplicated; F14.20 Cocaine dependence, uncomplicated; F17.210 Nicotine dependence, cigarettes, uncomplicated; F19.24 Other psychoactive substance dependence with psychoactive substance-induced mood disorder; L90.5 Scar conditions and fibrosis of skin; G47.00 Insomnia, unspecified; Z91.013 Allergy to seafood; R20.2 Paresthesia of skin; J34.89 Other specified disorders of nose and nasal sinuses
CPT/HCPCS: 36415; 80053; 81003; 82962; 85027; 86593; 87389; 93005; 93010

== ENCOUNTER 2017-12-19 14:46 | Inpatient (IN) | payer OTHER ==
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
[2017-12-19] MEDS ORDERED: guaiFENesin/D-METHORPHAN HB 10 ML UNIT-DOSE CUPS PO PRN (20:38)
[2017-12-19] MEDS ORDERED: ACETAMINOPHEN 325 MG TABLET (FP) PO PRN (20:38)
[2017-12-19] MEDS ORDERED: MAGNESIUM CITRATE 300 ML BOTTLE PO PRN (20:38)
[2017-12-19] MEDS ORDERED: P-EPHED 60MG/TRIPROLIDI 2.5MG TABLET PO PRN (20:38)
[2017-12-19] MEDS ORDERED: diazePAM 5 MG TABLET PO ONE (20:38)
[2017-12-19] MEDS ORDERED: MAGNESIUM HYDROX 2400MG/30ML ORAL SUSPENSION 30 ML CUP PO PRN (20:38)
[2017-12-19] MEDS ORDERED: LOPERAMIDE HCL 2 MG CAPSULE PO PRN (20:38)
[2017-12-19] MEDS ORDERED: IBUPROFEN 400 MG TABLET (FP) PO PRN (20:38)
[2017-12-19] MEDS ORDERED: METHADONE HCL 10 MG TABLET (FOR DETOX USE ONLY) PO ONE ×2 (20:38→23:00)
[2017-12-19] MEDS ORDERED: MAG HYDROX/AL HYDROX/SIMETH 30 ML UNIT-DOSE CUP PO PRN (20:38)
[2017-12-19] MEDS ORDERED: MENTHOL/PHENOL 1 EACH UD MM PRN (20:38)
[2017-12-19] MEDS ORDERED: BACITRACIN 15 GM TUBE TOPICAL OINTMENT TP SCH ×2 (22:00)
[2017-12-19] MEDS ORDERED: PATIENT'S OWN MEDICATION (NON-FORMULARY) (Sulfamethoxazole/Trimethoprim [Sulfamethoxazole- PO SCH (22:00)
[2017-12-19] MEDS ORDERED: MELATONIN 5 MG TABLETS PO PRN (22:00)
[2017-12-19] MEDS: BACITRACIN 0.9 GM PACKET TP SCH (22:14)
[2017-12-19] MEDS: SULFAMETHOXAZOLE/TRIMETHOPRIM 800MG/160MG D.S. TABLET PO SCH (22:15)
[2017-12-19] MEDS: THIAMINE HCL 100 MG TABLET (FP) PO SCH (22:15)
[2017-12-19] MEDS: diazePAM 5 MG TABLET PO SCH (22:37)
[2017-12-19 23:27] LABS: URINE APPEARANCE CLEAR; URINE BILIRUBIN NEGATIVE (<2.0 mg/dL); URINE COLOR STRAW; URINE GLUCOSE (UA) NEGATIVE (NEGATIVE); URINE KETONE NEGATIVE (NEGATIVE); URINE LEUK ESTERASE NEGATIVE (NEGATIVE); URINE NITRITE NEGATIVE (NEGATIVE); URINE PROTEIN NEGATIVE (NEGATIVE); URINE UROBILINOGEN NEGATIVE mg/dL (0.2-1.0)
[2017-12-20] MEDS: diazePAM 5 MG TABLET PO PRN ×4 (02:19→17:23)
[2017-12-20] MEDS: diazePAM 5 MG TABLET PO SCH ×3 (05:54→22:15)
[2017-12-20] MEDS ORDERED: METHADONE HCL 10 MG TABLET (FOR DETOX USE ONLY) PO SCH (10:00)
[2017-12-20 10:18] LABS: HEMATOCRIT 39.7 % (35.4-49); MCH 29.4 pg (25.7-33.7); MCHC 32.8 g/dl (32.0-35.9); MEAN CELL VOLUME 89.7 fl (80-96); MEAN PLT VOLUME 8.3 fl (7.5-11.1); PLATELET COUNT 284 K/MM3 (134-434); RBC 4.43 M/mm3 (4.00-5.60); RDW 15.6 % (11.9-15.9); WHITE BLOOD COUNT 3.9 K/mm3 (4.0-10.0)
[2017-12-20] MEDS: BACITRACIN 0.9 GM PACKET TP SCH (10:23)
[2017-12-20] MEDS: PRENATAL VITAMINS W/ FOLIC ACID TABLET (FP) PO SCH (10:23)
[2017-12-20] MEDS: SULFAMETHOXAZOLE/TRIMETHOPRIM 800MG/160MG D.S. TABLET PO SCH ×2 (10:23→22:15)
[2017-12-20 10:55] LABS: ALBUMIN 3.2 g/dl (3.4-5.0); ANION GAP 6 (8-16); BLOOD UREA NITROGEN 9 mg/dL (7-18); CALCIUM 8.5 mg/dL (8.5-10.1); CHLORIDE 104 mmol/L (98-107); CO2 30 mmol/L (21-32); GLUCOSE,RANDOM 128 mg/dL (74-106); POTASSIUM 4.7 mmol/L (3.5-5.1); SODIUM 140 mmol/L (136-145)
[2017-12-20 10:59] LABS: ALK PHOS 124 U/L (45-117); BILIRUBIN,TOTAL 0.4 mg/dL (0.2-1.0); CREATININE 0.8 mg/dL (0.7-1.3); SGOT/AST 276 U/L (15-37); SGPT/ALT 395 U/L (12-78)
--- NOTE | 2017-12-20 11:25 | PN ---
S CIWA - CIWA Score Nausea/Vomitin-No Nausea/No Vomiting Muscle Tremors: 4-Moderate,w/Arms Extend Anxiety: 4-Mod. Anxious/Guarded Agitation: 4-Moderately Restless Paroxysmal Sweats: 1-Minimal Palms Moist Orientation: 0-Oriented Tacttile Disturbances: 0-None Auditory Disturbances: 0-None Visual Disturbances: 0-None Headache: 0-None Present CIWA-Ar Total Score: 13 S COWS - Scale Resting Pulse: 0= [place] 80 or Below Sweatin= Chills/Flushing Restless Observation: 3= Extraneous Movement Pupil Size: 2= Moderately Dilated Bone or Joint Aches: 1= Mild Discomfort Runny Nose/ Eye Tearin= Nasal Congestion GI Upset > 30mins: 0= None Tremor Observation of Outstretched Hands: 1= Tremor [place], Not Seen Yawning Observation: 1= 1-2x During Session Anxiety or Irritability: 2=Irritable/Anxious Goose Flesh Skin: 0=Smooth Skin COWS Score: 12 S Progress Note (SOAP) Subjective: ANXIETY,SWEATS/CHILLS,FATIGUE. Objective: 12/20/17 11:25 Vital Signs 12/20/17 12/20/17 12/20/17 03:30 06:13 06:30 Temperature 96.6 F L Pulse Rate 56 L Respiratory 18 16 18 Rate Blood Pressure 96/65 12/20/17 09:10 Temperature 97.1 F L Pulse Rate 85 Respiratory 20 Rate Blood Pressure 127/79 Laboratory Tests 12/19/17 12/20/17 12/20/17 22:30 07:20 07:20 WBC 3.9 L RBC 4.43 Hgb 13.0 Hct 39.7 MCV 89.7 MCH 29.4 MCHC 32.8 RDW 15.6 Plt Count 284 MPV 8.3 Sodium 140 Potassium 4.7 Chloride 104 Carbon Dioxide 30 Anion Gap 6 L BUN 9 D Creatinine 0.8 Creat Clearance w eGFR > 60 Random Glucose 128 H Calcium 8.5 Total Bilirubin 0.4 AST 276 H D ALT 395 H D Alkaline Phosphatase 124 H Total Protein 7.0 Albumin 3.2 L Urine Color Straw Urine Appearance Clear Urine pH 7.0 Ur Specific [place] 1.005 Urine Protein Negative Urine Glucose (UA) Negative Urine Ketones Negative Urine Blood Negative Urine Nitrite Negative Urine Bilirubin Negative Urine Urobilinogen Negative Ur Leukocyte Esterase Negative Assessment: 12/20/17 11:26 WITHDRAWAL SX Plan: CONTINUE DETOX INCREASE PO FLUIDS
[2017-12-20] MEDS ORDERED: PNEUMOC 13-VAL CONJ-DIP CRM/PF 0.5 ML DISP.SYRIN IM ONE (12:00)
[2017-12-20] MEDS ORDERED: PNEUMOCOCCAL 23 VACCINE 0.5 ML VIAL IM ONE (12:00)
--- NOTE | 2017-12-20 12:24 | EKG ---
Test Reason : Blood Pressure : / mmHG Vent. Rate : 075 BPM Atrial Rate : 075 BPM P-R Int : 152 ms QRS Dur : 080 ms QT Int : 364 ms P-R-T Axes : 070 071 056 degrees QTc Int : 406 ms SINUS RHYTHM WITH MARKED SINUS ARRHYTHMIA POSSIBLE LEFT ATRIAL ENLARGEMENT ST ELEVATION, CONSIDER EARLY REPOLARIZATION, PERICARDITIS, OR INJURY NONSPECIFIC ST AND T WAVE ABNORMALITY ABNORMAL ECG WHEN COMPARED WITH ECG OF 14-NOV-2017 17:08, NO SIGNIFICANT CHANGE WAS FOUND Confirmed by MD RONNIE, SAM ([id number]) on 12/20/2017 12:24:05 PM Referred By: Confirmed By:SAM TRUJILLO MD
[2017-12-20] MEDS ORDERED: NICOTINE POLACRILEX 4 MG GUM BUC PRN (13:51)
[2017-12-20] MEDS: hydrOXYzine PAMOATE 50 MG CAPSULE (FP) PO PRN (15:05)
[2017-12-20] MEDS: NICOTINE 21 MG/24 HOURS TOPICAL PATCH TD SCH (15:05)
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
[2017-12-20] MEDS: BACITRACIN 15 GM TUBE TOPICAL OINTMENT TP SCH ×2 (17:00→22:17)
[2017-12-20] MEDS: THIAMINE HCL 100 MG TABLET (FP) PO SCH (22:15)
[2017-12-20] MEDS: ZOLPIDEM TARTRATE 10 MG TABLET (PARK CARE ONLY) PO PRN (22:15)
[2017-12-21] MEDS: diazePAM 5 MG TABLET PO PRN ×4 (00:43→20:14)
[2017-12-21] MEDS: hydrOXYzine PAMOATE 50 MG CAPSULE (FP) PO PRN (06:07)
[2017-12-21] MEDS: BACITRACIN 15 GM TUBE TOPICAL OINTMENT TP SCH ×2 (10:31→22:18)
[2017-12-21] MEDS: PRENATAL VITAMINS W/ FOLIC ACID TABLET (FP) PO SCH (10:31)
[2017-12-21] MEDS: SULFAMETHOXAZOLE/TRIMETHOPRIM 800MG/160MG D.S. TABLET PO SCH ×2 (10:31→22:18)
[2017-12-21] MEDS: diazePAM 5 MG TABLET PO SCH ×2 (10:31→22:18)
[2017-12-21] MEDS: METHADONE HCL 5 MG TABLET (FOR DETOX USE ONLY) PO SCH (10:32)
[2017-12-21] MEDS: NICOTINE 21 MG/24 HOURS TOPICAL PATCH TD SCH (10:33)
--- NOTE | 2017-12-21 10:55 | PN ---
S CIWA - CIWA Score Nausea/Vomitin-No Nausea/No Vomiting Muscle Tremors: 4-Moderate,w/Arms Extend Anxiety: 4-Mod. Anxious/Guarded Agitation: 4-Moderately Restless Paroxysmal Sweats: 1-Minimal Palms Moist Orientation: 0-Oriented Tacttile Disturbances: 0-None Auditory Disturbances: 0-None Visual Disturbances: 0-None Headache: 0-None Present CIWA-Ar Total Score: 13 [facility] COWS - Scale Resting Pulse: 1= [place] 81-100 Sweatin= Chills/Flushing Restless Observation: 3= Extraneous Movement Pupil Size: 2= Moderately Dilated Bone or Joint Aches: 4=Acute Joint/Muscle Pain Runny Nose/ Eye Tearin= Nasal Congestion GI Upset > 30mins: 0= None Tremor Observation of Outstretched Hands: 1= Tremor [place], Not Seen Yawning Observation: 1= 1-2x During Session Anxiety or Irritability: 1=Feels Anxious/Irritable Goose Flesh Skin: 0=Smooth Skin COWS Score: 15 [facility] Progress Note (SOAP) Subjective: ANXIETY,SWEATS,CHILLS,BODY ACHES 6 OUT OF 10,TREMORS, INTERMITTENT SLEEP. Objective: 12/21/17 10:54 Vital Signs 12/21/17 12/21/17 12/21/17 03:30 06:40 09:18 Temperature 96.9 F L 97.6 F Pulse Rate 75 87 Respiratory 18 16 18 Rate Blood Pressure 98/56 128/87 Laboratory Tests 12/19/17 12/20/17 12/20/17 22:30 07:20 07:20 WBC 3.9 L RBC 4.43 Hgb 13.0 Hct 39.7 MCV 89.7 MCH 29.4 MCHC 32.8 RDW 15.6 Plt Count 284 MPV 8.3 Sodium 140 Potassium 4.7 Chloride 104 Carbon Dioxide 30 Anion Gap 6 L BUN 9 D Creatinine 0.8 Creat Clearance w eGFR > 60 Random Glucose 128 H Calcium 8.5 Total Bilirubin 0.4 AST 276 H D ALT 395 H D Alkaline Phosphatase 124 H Total Protein 7.0 Albumin 3.2 L Urine Color Straw Urine Appearance Clear Urine pH 7.0 Ur Specific [place] 1.005 Urine Protein Negative Urine Glucose (UA) Negative Urine Ketones Negative Urine Blood Negative Urine Nitrite Negative Urine Bilirubin Negative Urine Urobilinogen Negative Ur Leukocyte Esterase Negative RPR Titer 12/20/17 07:20 WBC RBC Hgb Hct MCV MCH MCHC RDW Plt Count MPV Sodium Potassium Chloride Carbon Dioxide Anion Gap BUN Creatinine Creat Clearance w eGFR Random Glucose Calcium Total Bilirubin AST ALT Alkaline Phosphatase Total Protein Albumin Urine Color Urine Appearance Urine pH Ur Specific [place] Urine Protein Urine Glucose (UA) Urine Ketones Urine Blood Urine Nitrite Urine Bilirubin Urine Urobilinogen Ur Leukocyte Esterase RPR Titer Nonreactive Assessment: 12/21/17 10:55 WITHDRAWAL SX Plan: CONTINUE DETOX INCREASE PO FLUIDS MOTRIN PRN
[2017-12-21] MEDS: THIAMINE HCL 100 MG TABLET (FP) PO SCH (22:18)
[2017-12-21] MEDS: ZOLPIDEM TARTRATE 10 MG TABLET (PARK CARE ONLY) PO PRN (22:18)
[2017-12-22 09:19] VITALS: BP 124/75; PULSE 102; TEMP 97.8
[2017-12-22] MEDS: diazePAM 5 MG TABLET PO SCH (10:09)
[2017-12-22] MEDS: SULFAMETHOXAZOLE/TRIMETHOPRIM 800MG/160MG D.S. TABLET PO SCH (10:09)
[2017-12-22] MEDS: PRENATAL VITAMINS W/ FOLIC ACID TABLET (FP) PO SCH (10:09)
[2017-12-22] MEDS: METHADONE HCL 5 MG TABLET (FOR DETOX USE ONLY) PO SCH (10:09)
[2017-12-22] MEDS: BACITRACIN 15 GM TUBE TOPICAL OINTMENT TP SCH (10:09)
[2017-12-22] MEDS: NICOTINE 21 MG/24 HOURS TOPICAL PATCH TD SCH (10:10)
--- NOTE | 2017-12-22 11:01 | PN ---
[facility] Progress Note (SOAP) Subjective: PT C/O DIARRHEA,BODY ACHES,HOT/COLD FLASHES. Objective: 12/22/17 11:00 Vital Signs 12/22/17 09:18 Temperature 97.8 F Pulse Rate 102 H Respiratory 20 Rate Blood Pressure 124/75 Laboratory Tests 12/19/17 12/20/17 12/20/17 22:30 07:20 07:20 WBC 3.9 L RBC 4.43 Hgb 13.0 Hct 39.7 MCV 89.7 MCH 29.4 MCHC 32.8 RDW 15.6 Plt Count 284 MPV 8.3 Sodium 140 Potassium 4.7 Chloride 104 Carbon Dioxide 30 Anion Gap 6 L BUN 9 D Creatinine 0.8 Creat Clearance w eGFR > 60 Random Glucose 128 H Calcium 8.5 Total Bilirubin 0.4 AST 276 H D ALT 395 H D Alkaline Phosphatase 124 H Total Protein 7.0 Albumin 3.2 L Urine Color Straw Urine Appearance Clear Urine pH 7.0 Ur Specific [place] 1.005 Urine Protein Negative Urine Glucose (UA) Negative Urine Ketones Negative Urine Blood Negative Urine Nitrite Negative Urine Bilirubin Negative Urine Urobilinogen Negative Ur Leukocyte Esterase Negative RPR Titer 12/20/17 07:20 WBC RBC Hgb Hct MCV MCH MCHC RDW Plt Count MPV Sodium Potassium Chloride Carbon Dioxide Anion Gap BUN Creatinine Creat Clearance w eGFR Random Glucose Calcium Total Bilirubin AST ALT Alkaline Phosphatase Total Protein Albumin Urine Color Urine Appearance Urine pH Ur Specific [place] Urine Protein Urine Glucose (UA) Urine Ketones Urine Blood Urine Nitrite Urine Bilirubin Urine Urobilinogen Ur Leukocyte Esterase RPR Titer Nonreactive Assessment: 12/22/17 11:01 WITHDRAWAL SX Plan: CONTINUE DETOX
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
[2017-12-23] MEDS ORDERED: METHADONE HCL 10 MG TABLET (FOR DETOX USE ONLY) PO SCH (10:00)
[2017-12-23] MEDS ORDERED: diazePAM 5 MG TABLET PO SCH (10:00)
[2017-12-24] MEDS ORDERED: METHADONE HCL 5 MG TABLET (FOR DETOX USE ONLY) PO SCH (06:00)
== END 2017-12-22 10:42 | disposition left against medical advice (07) | DRG 770 ==
LOC: YASAS 14:46 → Y3N 19:52
PROVIDERS: ADMIT Surgery; ATTEND Surgery
PROC: HZ2ZZZZ Detoxification Services for Substance Abuse Treatment (ICD-10-PCS; principal; 2017-12-19)
DX: F11.23 Opioid dependence with withdrawal (principal); F13.230 Sedative, hypnotic or anxiolytic dependence with withdrawal, uncomplicated; F14.20 Cocaine dependence, uncomplicated; F17.213 Nicotine dependence, cigarettes, with withdrawal; F31.81 Bipolar II disorder; F19.24 Other psychoactive substance dependence with psychoactive substance-induced mood disorder; F32.9 Major depressive disorder, single episode, unspecified; B18.2 Chronic viral hepatitis C; L90.5 Scar conditions and fibrosis of skin; G47.00 Insomnia, unspecified; R68.2 Dry mouth, unspecified; Z91.013 Allergy to seafood
CPT/HCPCS: 36415; 80053; 81003; 85027; 86593; 93005; 93010

== ENCOUNTER 2018-04-07 14:29 | Inpatient (IN) | payer OTHER ==
[2018-04-07 16:08] VITALS: BMI 23.0
--- NOTE | 2018-04-07 18:23 | HP ---
"COWS - Scale Resting Pulse: 1= [place] 81-100 Sweatin= Beads of Sweat on Face Restless Observation: 5= Unable to Sit Still Pupil Size: 2= Moderately Dilated (5 mm) Bone or Joint Aches: 2= Severe Diffuse Aches Runny Nose/ Eye Tearin= None GI Upset > 30mins: 2= Nausea/Diarrhea (No diarrhea, just nausea) Tremor Observation: 4= Gross Tremor/Twitching Yawning Observation: 0= None Anxiety or Irritability: 1=Feels Anxious/Irritable Goose Flesh Skin: 0=Smooth Skin COWS Score: 20 CIWA Score - CIWA Score Nausea/Vomitin-Int. Nausea w/Dry Heave Muscle Tremors: 4-Moderate,w/Arms Extend Anxiety: 4-Mod. Anxious/Guarded Agitation: 5 Paroxysmal Sweats: 4-Forehead w/Sweat Beads Orientation: 1-Uncertain about Date Tacttile Disturbances: 0-None Auditory Disturbances: 0-None Visual Disturbances: 0-None Headache: 2-Mild CIWA-Ar Total Score: 24 Admission [facility] - HPI Chief Complaint: Here for heroin and Xanax withdrawal - I need detox. Allergies/Adverse Reactions: Allergies Allergy/AdvReac Type Severity Reaction Status Date / Time Fish Containing Products Allergy Verified 04/07/18 16:58 History of Present Illness: Heroin use disorder since age 12. Uses IV and has multiple track ascencio w/ lesions. States does not share needles or works. Nicotine use disorder since age 12. Xanax use disorder since age 12. Cocaine use disorder since age 13. Has had multiple treatment episodes. Denies hx seizures or blackouts. Denies significant PMH/PSH. Patient states being treated for mental health problems. Patient states receiving prescription for seroquel at [facility] [phone]. Also state takes zoloft and risperidone. Search Terms: Kian Orozco, 1995 Search Date: 04/07/2018 06:22:11 PM The Drug Utilization Report below displays all of the controlled substance prescriptions, if any, that your patient has filled in the last twelve months. The information displayed on this report is compiled from pharmacy submissions to the Department, and accurately reflects the information as submitted by the pharmacies. This report was requested by: Leti Brown | Reference #: [id number] There are no results for the search terms that you entered. Exam Limitations: No Limitations - Ebola screening Have you traveled outside of the country in the last 21 days: No (N) Have you had contact with anyone from an Ebola affected area: No Have you been sick,other than usual withdrawal symptoms: No Do you have a fever: No - Review of Systems Constitutional: Chills, Diaphoresis, Loss of Appetite, Changes in sleep ( Difficulty falling and staying asleep. Takes seroquel) EENT: reports: Blurred Vision (Wears glasses.) Respiratory: reports: No Symptoms reported Cardiac: reports: No Symptoms Reported GI: reports: Nausea (with pain), Poor Appetite : reports: No Symptoms Reported Musculoskeletal: reports: Back Pain (r/t withdrawal) Integumentary: reports: Lesions (r/t IVDU) Neuro: reports: Headache, Tremors, Other (Has jerking movements sometimes) Endocrine: reports: No Symptoms Reported Hematology: reports: No Symptoms Reported Psychiatric: reports: Judgement Intact, Agitated, Anxious, Depressed (Denies thoughts of harming self or others.) Patient History - Patient Medical History Hx Anemia: No Hx Asthma: No Hx Chronic Obstructive Pulmonary Disease (COPD): No Hx Cancer: No Hx Cardiac Disorders: No Hx Congestive Heart Failure: No Hx Hypertension: No Hx Hypercholesterolemia: No Hx Pacemaker: No HX Cerebrovascular Accident: No Hx Seizures: No Hx Dementia: No Hx Diabetes: No Hx Gastrointestinal Disorders: No Hx Liver Disease: No Hx Genitourinary Disorders: No Hx Sexually Transmitted Disorders: No Hx Renal Disease (ESRD): No Hx Thyroid Disease: No Hx Human Immunodeficiency Virus (HIV): No Hx Hepatitis C: Yes (no tx ) Hx Depression: Yes Hx Suicide Attempt: No Hx Bipolar Disorder: Yes Hx Schizophrenia: No - Patient Surgical History Past Surgical History: No Hx Neurologic Surgery: No Hx Cataract Extraction: No Hx Cardiac Surgery: No Hx Lung Surgery: No Hx Breast Surgery: No Hx Breast Biopsy: No Hx Abdominal Surgery: No Hx Appendectomy: No Hx Cholecystectomy: No Hx Genitourinary Surgery: No Hx Section: No Hx Orthopedic Surgery: No Anesthesia Reaction: No - PPD History Previous Implant?: Yes Documented Results: Negative w/proof Date: 11/15/17 Results: 0mm - Smoking Cessation Smoking history: Current every day smoker Have you smoked in the past 12 months: Yes Aproximately how many cigarettes per day: 20 Cigars Per Day: 0 Hx Chewing Tobacco Use: No Initiated information on smoking cessation: Yes 'Breaking Loose' booklet given: 04/07/18 - Substance & Tx. History Hx Alcohol Use: Yes Hx Substance Use: Yes Substance Use Type: Cocaine, Heroin, Tranquilizers (Xanax) Hx Substance Use Treatment: Yes (detox, rehab) - Substances Abused Alprazolam (Xanax) Route: Oral Frequency: Daily Amount used: 10mg Age of first use: 13 Date of Last Use: 04/06/18 Heroin Route: Injection Frequency: Daily Amount used: 20bags Age of first use: 12 Date of Last Use: 04/07/18 Cocaine Route: Inhalation Frequency: Daily Amount used: $100 Age of first use: 13 Date of Last Use: 04/06/18 Admission Physical Exam S - Vital Signs Vital Signs: Vital Signs - 24 hr 04/07/18 16:07 Temperature 98 F Pulse Rate 81 Respiratory 18 Rate Blood Pressure 143/94 - Physical General Appearance: Yes: Moderate Distress, Tremorous, Sweating, Anxious HEENTM: Yes: EOMI, Hearing grossly Normal, Normocephalic, Normal Voice, VELMA ( Pupils = 5 mm), Lessions (Papular lesion (L) lower eyelid w/ increased erythem and (+) tenderness), Other (Metal piercings on (L) eyebrow, (L) lower lip, and on tongue) Respiratory: Yes: Chest Non-Tender, Lungs Clear, Normal Breath Sounds, No Respiratory Distress Neck: Yes: No masses,lesions,Nodules, Supple Breast: Yes: Breast Exam Deferred Cardiology: Yes: Regular Rhythm, Regular Rate, S1, S2 Abdominal: Yes: Flat, Soft, Increased Bowel Sounds, Tenderness (RUQ abdominal tenderness upon palpation. 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 (L) arm > (R)) Lymphatic: Yes: Within Normal Limits - Diagnostic (1) Hordeolum externum (stye) Current Visit: Yes Status: Acute Qualifiers: Laterality: left Eyelid: lower Qualified Code(s): H00.015 - Hordeolum externum left lower eyelid (2) Cellulitis of arm Current Visit: Yes Status: Acute Qualifiers: Laterality: unspecified laterality Qualified Code(s): L03.119 - Cellulitis of unspecified part of limb (3) Cocaine dependence Current Visit: Yes Status: Chronic Qualifiers: Substance use status: uncomplicated Qualified Code(s): F14.20 - Cocaine dependence, uncomplicated (4) Nicotine dependence Current Visit: Yes Status: Chronic Qualifiers: Nicotine product type: cigarettes Substance use status: in withdrawal Qualified Code(s): F17.213 - Nicotine dependence, cigarettes, with withdrawal (5) Opioid dependence with withdrawal Current Visit: Yes Status: Acute (6) Sedative, hypnotic or anxiolytic dependence with withdrawal, uncomplicated Current Visit: Yes Status: Acute (7) 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
[2018-04-07] MEDS ORDERED: MENTHOL/PHENOL 1 EACH UD MM PRN (20:02)
[2018-04-07] MEDS ORDERED: MAGNESIUM CITRATE 300 ML BOTTLE PO PRN (20:02)
[2018-04-07] MEDS ORDERED: MAGNESIUM HYDROX 2400MG/30ML ORAL SUSPENSION 30 ML CUP PO PRN (20:02)
[2018-04-07] MEDS ORDERED: LOPERAMIDE HCL 2 MG CAPSULE PO PRN (20:02)
[2018-04-07] MEDS ORDERED: IBUPROFEN 400 MG TABLET (FP) PO PRN (20:02)
[2018-04-07] MEDS ORDERED: MAG HYDROX/AL HYDROX/SIMETH 30 ML UNIT-DOSE CUP PO PRN (20:02)
[2018-04-07] MEDS ORDERED: hydrOXYzine PAMOATE 50 MG CAPSULE (FP) PO PRN (20:02)
[2018-04-07] MEDS ORDERED: ACETAMINOPHEN 325 MG TABLET (FP) PO PRN (20:02)
[2018-04-07] MEDS ORDERED: P-EPHED 60MG/TRIPROLIDI 2.5MG TABLET PO PRN (20:02)
[2018-04-07] MEDS ORDERED: METHADONE HCL 10 MG TABLET (FOR DETOX USE ONLY) PO ONE ×2 (20:02→23:00)
[2018-04-07] MEDS ORDERED: diazePAM 5 MG TABLET PO ONE (20:02)
[2018-04-07] MEDS ORDERED: guaiFENesin/D-METHORPHAN HB 10 ML UNIT-DOSE CUPS PO PRN (20:02)
[2018-04-07] MEDS ORDERED: MELATONIN 5 MG TABLETS PO PRN (22:00)
[2018-04-07 22:14] LABS: URINE APPEARANCE CLEAR; URINE BILIRUBIN NEGATIVE (<2.0 mg/dL); URINE COLOR LTYELLOW; URINE GLUCOSE (UA) NEGATIVE (NEGATIVE); URINE KETONE NEGATIVE (NEGATIVE); URINE LEUK ESTERASE NEGATIVE (NEGATIVE); URINE NITRITE NEGATIVE (NEGATIVE); URINE PROTEIN NEGATIVE (NEGATIVE); URINE UROBILINOGEN NEGATIVE mg/dL (0.2-1.0)
[2018-04-07] MEDS: diazePAM 5 MG TABLET PO SCH (22:16)
[2018-04-07] MEDS: THIAMINE HCL 100 MG TABLET (FP) PO SCH (22:16)
[2018-04-07] MEDS: BACITRACIN 0.9 GM PACKET TP SCH (22:36)
[2018-04-07] MEDS: CEPHALEXIN MONOHYDRATE 500 MG CAPSULE (UD) PO SCH (23:20)
[2018-04-07] MEDS: ERYTHROMYCIN 0.5% OPHTHALMIC OINTMENT 3.5 GM TUBE OU SCH ×2 (23:20→23:25)
[2018-04-08] MEDS: diazePAM 5 MG TABLET PO SCH ×3 (05:51→22:21)
[2018-04-08] MEDS: CEPHALEXIN MONOHYDRATE 500 MG CAPSULE (UD) PO SCH ×4 (05:51→23:43)
[2018-04-08] MEDS ORDERED: METHADONE HCL 10 MG TABLET (FOR DETOX USE ONLY) PO SCH (10:00)
[2018-04-08] MEDS: ERYTHROMYCIN 0.5% OPHTHALMIC OINTMENT 3.5 GM TUBE OU SCH ×2 (10:39→22:21)
--- NOTE | 2018-04-08 10:39 | CONSULT ---
[facility] Psychiatric Consult - Data Date of interview: 04/08/18 Admission source: [facility] Identifying data: This is one of multiple admissions to [facility] for this 22 y/ [place] male self-referred for detoxification treatment (heroin,cocaine, benzodiazepine).Admitted to [address] [place] [address]. Patient is single (common-law relationship ) without children,homeless (lives in residential),unemployed and supported on welfare. Substance Abuse History: Discussed with the patient in this interview. Mr Orozco admits to daily use of xanax,alcohol and heroin (IV) for past 10 years. Smokes one pack of cigarettes on a daily basis. See [facility] report for details : Smoking history: Current every day smoker. Have you smoked in the past 12 months: Yes. Aproximately how many cigarettes per day: 20. Cigars Per Day: 0. Hx Chewing Tobacco Use: No. Initiated information on smoking cessation: Yes. 'Breaking Loose' booklet given: 04/07/18. - Substance & Tx. History. Hx Alcohol Use: Yes. Hx Substance Use: Yes. Substance Use Type: Cocaine, Heroin, Tranquilizers (Xanax). Hx Substance Use Treatment: Yes (detox, rehab). - Substances Abused. Alprazolam (Xanax). Route: Oral. Frequency: Daily. Amount used: 10mg. Age of first use: 13. Date of Last Use: 04/06/18. Heroin. Route: Injection. Frequency: Daily. Amount used: 20bags. Age of first use: 12. Date of Last Use: 04/07/18. Cocaine. Route: Inhalation. Frequency: Daily. Amount used: $100. Age of first use: 13. Date of Last Use: 04/06/18 Medical History: Hepatitis C. Psychiatric History: Patient endorses a history of multiple psychiatric hospitalizations [facility] ([facility],).Diagnosed with Bipolar II Disorder (according to records).Onset of psychiatric disturbances dates back to early adolescence.Mr Orozco declares that he used to see a psychiatrist at the [facility] in [facility]. Was prescribed seroquel,risperdal and sertraline in the past.Not adherent to OPD care for several months.Reported a history of three suicide attempts ( overdose with pills). Physical/Sexual Abuse/Trauma History: Patient denies. Additional Comment: Urine Drug Screen Results: JAMIR-Cocaine, OPI-Opiates, BAR- Barbiturates, BZO-Benzodiazepines.Noted. Mental Status Exam - Mental Status Exam Alert and Oriented to: Time, Place, Person Cognitive Function: Good Patient Appearance: Unkempt, Disheveled Mood: Nervous, Withdrawn Affect: Mood Congruent Patient Behavior: Fatigued, Cooperative Speech Pattern: Clear (in czech) Voice Loudness: Normal Thought Process: Goal Oriented Thought Disorder: Not Present Hallucinations: Denies Suicidal Ideation: Denies Homicidal Ideation: Denies Insight/Judgement: Poor Sleep: Poorly, Difficulty falling asleep Appetite: Good Muscle strength/Tone: Normal Gait/Station: Normal Psychiatric Findings - Problem List (Agency 1, 2,3) (1) Opioid dependence with withdrawal Current Visit: Yes Status: Acute (2) Cocaine dependence Current Visit: Yes Status: Acute Qualifiers: Substance use status: uncomplicated Qualified Code(s): F14.20 - Cocaine dependence, uncomplicated (3) Nicotine dependence Current Visit: Yes Status: Acute Qualifiers: Nicotine product type: cigarettes Substance use status: uncomplicated Qualified Code(s): F17.210 - Nicotine dependence, cigarettes, uncomplicated (4) Drug-induced mood disorder Current Visit: Yes Status: Acute (5) Insomnia Current Visit: Yes Status: Acute - Initial Treatment Plan Initial Treatment Plan: Psychoeducation.Detoxification.Sleep hygiene.Seroquel 100 mg po hs.Side effects/benefits discussed with the patient.Mr Orozco agrees to this careplan.Observation.
[2018-04-08] MEDS: BACITRACIN 0.9 GM PACKET TP SCH ×2 (10:40→22:21)
[2018-04-08] MEDS: PRENATAL VITAMINS W/ FOLIC ACID TABLET (FP) PO SCH (10:41)
[2018-04-08] MEDS: diazePAM 5 MG TABLET PO PRN ×2 (10:41→19:02)
[2018-04-08] MEDS: NICOTINE 21 MG/24 HOURS TOPICAL PATCH TD SCH (10:41)
--- NOTE | 2018-04-08 10:47 | PN ---
[facility] CIWA - CIWA Score Nausea/Vomitin Muscle Tremors: 2 Anxiety: 2 Agitation: 2 Paroxysmal Sweats: 2 Orientation: 0-Oriented Tacttile Disturbances: 2-Mild Itch/Numbness/Burn Auditory Disturbances: 0-None Visual Disturbances: 0-None Headache: 2-Mild CIWA-Ar Total Score: 14 BHS COWS - Scale Resting Pulse: 0= MT 80 or Below Sweatin= Chills/Flushing Restless Observation: 1= Difficult to Sit Still Pupil Size: 0= Normal to Room Light Bone or Joint Aches: 2= Severe Diffuse Aches Runny Nose/ Eye Tearin= Nasal Congestion GI Upset > 30mins: 2= Nausea/Diarrhea Tremor Observation of Outstretched Hands: 2= Slight Tremor Visible Yawning Observation: 1= 1-2x During Session Anxiety or Irritability: 1=Feels Anxious/Irritable Goose Flesh Skin: 3=Piloerection COWS Score: 14 S Progress Note (SOAP) Subjective: Tremors, chills, interrupted sleep and muscle aches Objective: 04/08/18 10:46 Vital Signs - 8 hr 04/08/18 06:19 Temperature 97.6 F Pulse Rate 59 L Respiratory 16 Rate Blood Pressure 109/72 Laboratory Last Values Urine Color Ltyellow 04/07/18 20:32 Urine Appearance Clear 04/07/18 20:32 Urine pH 8.0 (5.0-8.0) 04/07/18 20:32 Ur Specific [place] 1.013 (1.001-1.035) 04/07/18 20:32 Urine Protein Negative (NEGATIVE) 04/07/18 20:32 Urine Glucose (UA) Negative (NEGATIVE) 04/07/18 20:32 Urine Ketones Negative (NEGATIVE) 04/07/18 20:32 Urine Blood Negative (NEGATIVE) 04/07/18 20:32 Urine Nitrite Negative (NEGATIVE) 04/07/18 20:32 Urine Bilirubin Negative (<2.0 mg/dL) 04/07/18 20:32 Urine Urobilinogen Negative mg/dL (0.2-1.0) 04/07/18 20:32 Ur Leukocyte Esterase Negative (NEGATIVE) 04/07/18 20:32 UA noted-negative Labs pending Assessment: 04/08/18 10:47 Withdrawal sx Plan: Continue detox
[2018-04-08 11:34] LABS: HEMATOCRIT 39.6 % (35.4-49); HEMOGLOBIN 12.8 GM/dL (11.7-16.9); MCH 28.8 pg (25.7-33.7); MCHC 32.4 g/dl (32.0-35.9); PLATELET COUNT 327 K/MM3 (134-434); RBC 4.45 M/mm3 (4.00-5.60); RDW 14.3 % (11.9-15.9); WHITE BLOOD COUNT 4.9 K/mm3 (4.0-10.0)
[2018-04-08 11:47] LABS: ALBUMIN 3.1 g/dl (3.4-5.0); ALK PHOS 113 U/L (45-117); ANION GAP 5 MMOL/L (8-16); BILIRUBIN,TOTAL 0.3 mg/dL (0.2-1); BLOOD UREA NITROGEN 13 mg/dL (7-18); CALCIUM 8.8 mg/dL (8.5-10.1); CHLORIDE 104 mmol/L (98-107); CO2 30 mmol/L (21-32); CREATININE 0.8 mg/dL (0.55-1.3); GLUCOSE,RANDOM 89 mg/dL (74-106); POTASSIUM 4.4 mmol/L (3.5-5.1); SGOT/AST 26 U/L (15-37); SGPT/ALT 29 U/L (13-61); SODIUM 139 mmol/L (136-145)
[2018-04-08] MEDS: NICOTINE POLACRILEX 2 MG GUM BUC PRN (19:07)
[2018-04-08] MEDS: THIAMINE HCL 100 MG TABLET (FP) PO SCH (22:21)
--- NOTE | 2018-04-08 23:24 | EKG ---
Test Reason : Blood Pressure : / mmHG Vent. Rate : 082 BPM Atrial Rate : 082 BPM P-R Int : 130 ms QRS Dur : 082 ms QT Int : 354 ms P-R-T Axes : 052 068 058 degrees QTc Int : 413 ms NORMAL SINUS RHYTHM NORMAL ECG WHEN COMPARED WITH ECG OF 19-DEC-2017 21:45, NONSPECIFIC T WAVE ABNORMALITY NO LONGER EVIDENT IN LATERAL LEADS Confirmed by ANTONINA GOODE MD ([id number]) on 04/08/2018 11:24:03 PM Referred By: Confirmed By:ANTONINA GOODE MD
[2018-04-09] MEDS: CEPHALEXIN MONOHYDRATE 500 MG CAPSULE (UD) PO SCH ×3 (06:02→19:07)
[2018-04-09] MEDS: diazePAM 5 MG TABLET PO PRN ×3 (06:04→19:31)
[2018-04-09] MEDS: METHADONE HCL 5 MG TABLET (FOR DETOX USE ONLY) PO SCH (10:30)
[2018-04-09] MEDS: diazePAM 5 MG TABLET PO SCH ×2 (10:30→22:29)
[2018-04-09] MEDS: ERYTHROMYCIN 0.5% OPHTHALMIC OINTMENT 3.5 GM TUBE OU SCH ×2 (10:30→22:29)
[2018-04-09] MEDS: PRENATAL VITAMINS W/ FOLIC ACID TABLET (FP) PO SCH (10:31)
[2018-04-09] MEDS: NICOTINE 21 MG/24 HOURS TOPICAL PATCH TD SCH (10:31)
[2018-04-09] MEDS: BACITRACIN 0.9 GM PACKET TP SCH ×2 (10:31→22:30)
--- NOTE | 2018-04-09 16:05 | PN ---
[facility] CIWA - CIWA Score Nausea/Vomitin Muscle Tremors: 3 Anxiety: 3 Agitation: 3 Paroxysmal Sweats: 2 Orientation: 0-Oriented Tacttile Disturbances: 0-None Auditory Disturbances: 0-None Visual Disturbances: 0-None Headache: 1-Very Mild CIWA-Ar Total Score: 14 BHS COWS - Scale Resting Pulse: 2= MT 101-120 Sweatin= Chills/Flushing Restless Observation: 1= Difficult to Sit Still Pupil Size: 1= Pupils >than Normal Bone or Joint Aches: 2= Severe Diffuse Aches Runny Nose/ Eye Tearin= Runny Nose/Eyes GI Upset > 30mins: 2= Nausea/Diarrhea Tremor Observation of Outstretched Hands: 2= Slight Tremor Visible Yawning Observation: 1= 1-2x During Session Anxiety or Irritability: 2=Irritable/Anxious Goose Flesh Skin: 0=Smooth Skin COWS Score: 16 S Progress Note (SOAP) Subjective: Tremor, sweating, interrupted sleep Objective: 04/09/18 16:04 Last Vital Signs Temp Pulse Resp BP Pulse Ox 99.6 F 104 H 18 122/81 04/09/18 14:57 04/09/18 14:57 04/09/18 14:57 04/09/18 14:57 Laboratory Tests 04/07/18 04/08/18 04/08/18 20:32 07:40 07:40 WBC 4.9 RBC 4.45 Hgb 12.8 Hct 39.6 MCV 89.0 MCH 28.8 MCHC 32.4 RDW 14.3 Plt Count 327 MPV 8.0 Sodium 139 Potassium 4.4 Chloride 104 Carbon Dioxide 30 Anion Gap 5 L BUN 13 Creatinine 0.8 Creat Clearance w eGFR > 60 Random Glucose 89 Calcium 8.8 Total Bilirubin 0.3 AST 26 ALT 29 Alkaline Phosphatase 113 Total Protein 7.0 Albumin 3.1 L Urine Color Ltyellow Urine Appearance Clear Urine pH 8.0 Ur Specific [place] 1.013 Urine Protein Negative Urine Glucose (UA) Negative Urine Ketones Negative Urine Blood Negative Urine Nitrite Negative Urine Bilirubin Negative Urine Urobilinogen Negative Ur Leukocyte Esterase Negative RPR Titer 04/08/18 07:40 WBC RBC Hgb Hct MCV MCH MCHC RDW Plt Count MPV Sodium Potassium Chloride Carbon Dioxide Anion Gap BUN Creatinine Creat Clearance w eGFR Random Glucose Calcium Total Bilirubin AST ALT Alkaline Phosphatase Total Protein Albumin Urine Color Urine Appearance Urine pH Ur Specific [place] Urine Protein Urine Glucose (UA) Urine Ketones Urine Blood Urine Nitrite Urine Bilirubin Urine Urobilinogen Ur Leukocyte Esterase RPR Titer Nonreactive Labs reviewed Assessment: 04/09/18 16:04 Withdrawal sx Plan: Continue detox
[2018-04-09] MEDS: THIAMINE HCL 100 MG TABLET (FP) PO SCH (22:29)
[2018-04-09] MEDS: NICOTINE POLACRILEX 2 MG GUM BUC PRN (22:34)
[2018-04-10] MEDS: diazePAM 5 MG TABLET PO PRN ×2 (00:36→06:55)
[2018-04-10] MEDS: CEPHALEXIN MONOHYDRATE 500 MG CAPSULE (UD) PO SCH (06:54)
[2018-04-10 09:32] VITALS: BP 107/60; PULSE 106; TEMP 97.3
--- NOTE | 2018-04-10 09:48 | PN ---
JAROD Progress Note Note: Psychiatric nurse practitoner note: Chart reviewed. Dr. Ge note read and appreciated. Will order Seroquel 100mg qhs.
[2018-04-10] MEDS: METHADONE HCL 5 MG TABLET (FOR DETOX USE ONLY) PO SCH (10:33)
[2018-04-10] MEDS: PRENATAL VITAMINS W/ FOLIC ACID TABLET (FP) PO SCH (10:33)
[2018-04-10] MEDS: NICOTINE 21 MG/24 HOURS TOPICAL PATCH TD SCH (10:33)
[2018-04-10] MEDS: ERYTHROMYCIN 0.5% OPHTHALMIC OINTMENT 3.5 GM TUBE OU SCH (10:33)
[2018-04-10] MEDS: diazePAM 5 MG TABLET PO SCH (10:33)
--- NOTE | 2018-04-10 12:40 | PN ---
S Progress Note (SOAP) Subjective: Pt insisted on leaving the unit, saying the sleep medication he got was not enough despite being seen by psychiatrist and seroquel ordered. Pt did not want to wait to see if the new med ordered will help his Sleep disturbance. Pt not receptive to education/advise to stay to complete detox. Pt is A & O x 3, although anxious, he is not in acute distress. Prescription keflex sent to [place] [facility]. Pt will also be given his erythromycin ointment to complete his tx. Pt will be discharged AMA
--- NOTE | 2018-04-10 12:45 | DS ---
[facility] Detox Discharge Summary Admission Date: 04/07/18 Discharge Date: 04/10/18 - History Additional Comments: Pt insisted on leaving the unit, saying the sleep medication he got was not enough despite being seen by psychiatrist and seroquel ordered. Pt did not want to wait to see if the new med ordered will help his Sleep disturbance. Pt not receptive to education/advise to stay to complete detox. Pt is A & O x 3, although anxious, he is not in acute distress. Prescription keflex sent to [place] pharmacy. Pt will also be given his erythromycin ointment to complete his tx. Pt will be discharged AMA - Physical Exam Results Vital Signs: Vital Signs Temperature 97.3 F L 04/10/18 09:31 Pulse Rate 106 H 04/10/18 09:31 Respiratory Rate 19 04/10/18 09:31 Blood Pressure 107/60 04/10/18 09:31 O2 Sat by Pulse Oximetry (%) Pertinent Admission Physical Exam Findings: withdrawal sx - Medication Discharge Medications: Ambulatory Orders Cephalexin [Keflex] 500 mg PO QID 6 Days #24 capsule 04/10/18 - AMA Did Patient Leave Against Medical Advice: Yes
[2018-04-10] MEDS ORDERED: QUEtiapine FUMARATE 100 MG TABLET (FP) PO SCH (22:00)
[2018-04-11] MEDS ORDERED: diazePAM 5 MG TABLET PO SCH (10:00)
[2018-04-11] MEDS ORDERED: METHADONE HCL 10 MG TABLET (FOR DETOX USE ONLY) PO SCH (10:00)
[2018-04-12] MEDS ORDERED: METHADONE HCL 5 MG TABLET (FOR DETOX USE ONLY) PO SCH (06:00)
== END 2018-04-10 12:00 | disposition left against medical advice (07) | DRG 770 ==
LOC: YASAS 14:29 → Y3N 20:07
PROC: HZ2ZZZZ Detoxification Services for Substance Abuse Treatment (ICD-10-PCS; principal; 2018-04-07)
DX: F11.23 Opioid dependence with withdrawal (principal); F13.230 Sedative, hypnotic or anxiolytic dependence with withdrawal, uncomplicated; F14.20 Cocaine dependence, uncomplicated; F12.20 Cannabis dependence, uncomplicated; F17.210 Nicotine dependence, cigarettes, uncomplicated; F32.9 Major depressive disorder, single episode, unspecified; F19.24 Other psychoactive substance dependence with psychoactive substance-induced mood disorder; L03.113 Cellulitis of right upper limb; L90.5 Scar conditions and fibrosis of skin; G47.00 Insomnia, unspecified; H00.015 Hordeolum externum left lower eyelid; B18.2 Chronic viral hepatitis C; R10.811 Right upper quadrant abdominal tenderness; Z91.013 Allergy to seafood
CPT/HCPCS: 36415; 80053; 81003; 85027; 86593; 93005; 93010

== ENCOUNTER 2020-02-02 14:13 | Inpatient (IN) | payer OTHER ==
--- NOTE | 2020-02-02 15:32 | BHS.RME ---
Substance Use & Tx History - Substance Use History Heroin Substance amount: 1 bundle Frequency of use: Daily Substance route: Injection (ex: intravenous or skin popping) Date of Last Use: 02/02/20 - Last Treatment Date of last treatment: 04/07/28 Where was last treatment: Detox Physical/Psych/Mental Status - Behavior General Behavior: Increased activity (restlessness, agitation) Eye Contact: Normal Other Behaviors: Mannerisms - Cooperativeness Cooperativeness: Cooperative - Thinking Thought Processes: Logical, Goal Directed Thought content: Future oriented - Physical Health Problems Is patient presently having any pain?: No Does patient presently have any injuries (include location): No Does patient currently have a fever: No COWS - Scale Resting Pulse: 1= [place] 81-100 Sweatin= Chills/Flushing Restless Observation: 1= Difficult to Sit Still Pupil Size: 1= Pupils >than Normal Bone or Joint Aches: 2= Severe Diffuse Aches Runny Nose/ Eye Tearin= Runny Nose/Eyes GI Upset > 30mins: 0= None Tremor Observation: 1= Tremor [place], Not Seen Yawning Observation: 1= 1-2x During Session Anxiety or Irritability: 1=Feels Anxious/Irritable Goose Flesh Skin: 0=Smooth Skin COWS Score: 11
--- NOTE | 2020-02-02 15:37 | HP ---
COWS - Scale Resting Pulse: 1= [place] 81-100 Sweatin= Chills/Flushing Restless Observation: 1= Difficult to Sit Still Pupil Size: 1= Pupils >than Normal Bone or Joint Aches: 2= Severe Diffuse Aches Runny Nose/ Eye Tearin= Runny Nose/Eyes GI Upset > 30mins: 0= None Tremor Observation: 1= Tremor [place], Not Seen Yawning Observation: 1= 1-2x During Session Anxiety or Irritability: 1=Feels Anxious/Irritable Goose Flesh Skin: 0=Smooth Skin COWS Score: 11 CIWA Score - Admission Criteria OASAS Guidelines: Admission for Medically Managed Detox: Requires at least one of the followin. CIWA greater than 12 2. Seizures within the past 24 hours 3. Delirium tremens within the past 24 hours 4. Hallucinations within the past 24 hours 5. Acute intervention needed for co occurring medical disorder 6. Acute intervention needed for co occurring psychiatric disorder 7. Severe withdrawal that cannot be handled at a lower level of care (continued vomiting, continued diarrhea, abnormal vital signs) requiring intravenous medication and/or fluids 8. Admitting History and Physical - Smoking History Smoking history: Current every day smoker Have you smoked in the past 12 months: Yes Aproximately how many cigarettes per day: 20 - Alcohol/Substance Use Hx Alcohol Use: Yes Admission ROS S - HPI Chief Complaint: Need detox Allergies/Adverse Reactions: Allergies Allergy/AdvReac Type Severity Reaction Status Date / Time Fish Containing Products Allergy Verified 02/02/20 15:43 History of Present Illness: 24 year old man with opiates dependence presents for detox. His last treatment was in March of 2018, he signed out AMA after 3 days of treatment Exam Limitations: No Limitations - Ebola screening Have you traveled outside of the country in the last 21 days: No Have you had contact with anyone from an Ebola affected area: No Have you been sick,other than usual withdrawal symptoms: No Do you have a fever: No - Review of Systems Constitutional: Chills, Loss of Appetite, Malaise, Changes in sleep EENT: reports: Nose Congestion Respiratory: reports: No Symptoms reported Cardiac: reports: No Symptoms Reported GI: reports: Nausea, Poor Fluid Intake, Abdominal cramping : reports: No Symptoms Reported Musculoskeletal: reports: Muscle Pain, Muscle Weakness Integumentary: reports: Flushing, Sweating Neuro: reports: Tremors Hematology: reports: No Symptoms Reported Psychiatric: reports: Depressed Other Systems: Reviewed and Negative Patient History - Patient Medical History Hx Anemia: No Hx Asthma: No Hx Chronic Obstructive Pulmonary Disease (COPD): No Hx Cancer: No Hx Cardiac Disorders: No Hx Congestive Heart Failure: No Hx Hypertension: No Hx Hypercholesterolemia: No Hx Pacemaker: No HX Cerebrovascular Accident: No Hx Seizures: No Hx Dementia: No Hx Diabetes: No Hx Gastrointestinal Disorders: No Hx Liver Disease: No Hx Genitourinary Disorders: No Hx Sexually Transmitted Disorders: No Hx Renal Disease (ESRD): No Hx Thyroid Disease: No Hx Human Immunodeficiency Virus (HIV): No Hx Hepatitis C: Yes (no tx ) Hx Depression: Yes Hx Suicide Attempt: No Hx Bipolar Disorder: Yes Hx Schizophrenia: No - Patient Surgical History Past Surgical History: No - PPD History Previous Implant?: Yes Documented Results: Negative w/proof Implanted On Prior [facility] Admission?: Yes Date: 11/15/17 Results: 0mm PPD to be Administered?: Yes - Smoking Cessation Smoking history: Current every day smoker Have you smoked in the past 12 months: Yes Aproximately how many cigarettes per day: 20 Cigars Per Day: 0 Hx Chewing Tobacco Use: No Initiated information on smoking cessation: Yes 'Breaking Loose' booklet given: 02/02/20 Admission Physical Exam BHS - Physical General Appearance: Yes: No Apparent Distress HEENTM: Yes: Hearing grossly Normal, Normocephalic, Normal Voice, Pharynx Normal Respiratory: Yes: Chest Non-Tender, Lungs Clear, Normal Breath Sounds, No Respiratory Distress, No Accessory Muscle Use Neck: Yes: No masses,lesions,Nodules, Supple Breast: Yes: Breast Exam Deferred Cardiology: Yes: Regular Rhythm, Regular Rate, S1, S2 Abdominal: Yes: Normal Bowel Sounds, Non Tender, Soft Genitourinary: Yes: Within Normal Limits Back: Yes: Normal Inspection Musculoskeletal: Yes: full range of Motion, Gait Steady, Pelvis Stable Extremities: Yes: Non-Tender, Tremors Neurological: Yes: residential sales consultant II-XII NML intact, Fully Oriented, Alert, Normal Mood/Affect, Normal Response Integumentary: Yes: Clammy, Track Abdi (both arms) Lymphatic: Yes: Within Normal Limits - Diagnostic (1) Opioid dependence with withdrawal Current Visit: Yes Status: Acute (2) Nicotine dependence Current Visit: Yes Status: Chronic Qualifiers: Nicotine product type: cigarettes Substance use status: uncomplicated Qualified Code(s): F17.210 - Nicotine dependence, cigarettes, uncomplicated Cleared for Admission S - Detox or Rehab [facility] Level of Care: Medically Managed Detox Regimen/Protocol: Methadone Claeared for Rehab Admission: No Breathalyzer - Breathalyzer Breathalyzer: 0 Urine Drug Screen - Test Device Lot number: [id number] Expiration date: 03/10/21 - Control Is test valid?: Yes - Results Drug screen NEGATIVE: No Urine drug screen results: JAMIR-Cocaine, FEN-Fentanyl, MOP-Opiates, MTD-Methadone Inpatient Rehab Admission - Rehab Decision to Admit Inpatient rehab admission?: No
[2020-02-02] MEDS ORDERED: NICOTINE POLACRILEX 2 MG GUM BUC PRN (15:39)
[2020-02-02] MEDS ORDERED: cloNIDine HCL 0.1 MG TABLET PO PRN (15:39)
[2020-02-02] MEDS ORDERED: MAGNESIUM HYDROX 2400MG/30ML ORAL SUSPENSION 30 ML CUP PO PRN (15:39)
[2020-02-02] MEDS ORDERED: ACETAMINOPHEN 325 MG TABLET (FP) PO PRN ×2 (15:39)
[2020-02-02] MEDS ORDERED: BISMUTH SUBSALICYLATE 524 MG/30 ML UD PO PRN (15:39)
[2020-02-02] MEDS ORDERED: NALOXONE HCL 0.4 MG/ML VIAL IM PRN (15:39)
[2020-02-02] MEDS ORDERED: MAG HYDROX/AL HYDROX/SIMETH 30 ML UNIT-DOSE CUP PO PRN (15:39)
[2020-02-02] MEDS ORDERED: MAGNESIUM CITRATE 300 ML BOTTLE PO PRN (15:39)
[2020-02-02] MEDS ORDERED: MENTHOL/PHENOL 1 EACH UD MM PRN (15:39)
[2020-02-02] MEDS ORDERED: METHADONE HCL 10 MG TABLET (FOR DETOX USE ONLY) PO ONE (15:39)
[2020-02-02 15:56] VITALS: BMI 20.9
[2020-02-02] MEDS: MELATONIN 5 MG TABLETS PO SCH (21:52)
[2020-02-02] MEDS: THIAMINE HCL 100 MG TABLET (FP) PO SCH (21:53)
--- NOTE | 2020-02-03 08:57 | PN ---
BHS COWS - Scale Resting Pulse: 0= [place] 80 or Below Sweatin= Chills/Flushing Restless Observation: 0= Sits Still Pupil Size: 1= Pupils >than Normal Bone or Joint Aches: 1= Mild Discomfort Runny Nose/ Eye Tearin= None GI Upset > 30mins: 1= Stomach Cramp Tremor Observation of Outstretched Hands: 2= Slight Tremor Visible Yawning Observation: 0= None Anxiety or Irritability: 1=Feels Anxious/Irritable Goose Flesh Skin: 3=Piloerection COWS Score: 10 BHS Progress Note (SOAP) Subjective: 24 years old male admitted on 02/02/20 for opiate withdrawal sx management treating with methadone detox regiment feeling tired resting in bed limited conversation with staff bmi 20.9 ensure 120 ml po tid with meals Objective: 02/03/20 08:59 Vital Signs - 24 hr 02/02/20 02/02/20 02/03/20 15:46 20:33 06:53 Temperature 98.4 F 98.2 F 98.4 F Pulse Rate 83 87 68 Respiratory 18 16 18 Rate Blood Pressure 120/64 113/61 133/77 O2 Sat by Pulse 99 97 Oximetry (%) 02/03/20 08:59 lab pending Assessment: 02/03/20 08:59 opiate withdrawal Plan: methadone regiment
--- NOTE | 2020-02-03 09:44 | CONSULT ---
[facility] Psychiatric Consult - Data Date of interview: 02/03/20 Admission source: Self-referred Identifying data: Mr Orozco is a 24 years old [place] male, in a common-law relationship, unemployed with no source of income, homeless seeking detox treatment for opioid Substance Abuse History: Reports history of heroin use. Refer to addiction counselor's summary for further information Medical History: Significant for hepatitis C. Smokes cigarettes 1 ppd Psychiatric History: Patient is known for five previous admissions to this facility. He is stricly palestinian-speaking. He denies previous psychiatric treatment. However when confronted with historical narrative on a previous admission to this facility, he acknowledges being diagnosed with Bipolar Disorder during adolescence while in [place]. Also acknowleges multiple previous psychiatric hospitalizations both in [place] and [facility]. He is known to [facility]. Reportedly, he has a history of non adherence to OPD care and medications. He is not currently affiliated with OPD care and has been off medications for months. During most recent admission to tis facility late March 2018, he was prescribed Seroquel 100 mg/hs by Dr Ge. According to EMR, he has 3 previous suicidal attempts via overdose on pills. At present, denies experiencing psychotic, manic or depressive symptoms, S/H ideations. However, reports feeling anxious and sleeping poorly Physical/Sexual Abuse/Trauma History: This topic is not addressed due to patient reluctance Mental Status Exam - Mental Status Exam Alert and Oriented to: Time, Place, Person Cognitive Function: Fair Patient Appearance: Unkempt, Disheveled Mood: Anxious Affect: Appropriate Speech Pattern: Clear Voice Loudness: Normal Thought Process: Intact, Goal Oriented Hallucinations: Denies Suicidal Ideation: Denies Homicidal Ideation: Denies Insight/Judgement: Poor Sleep: Poorly Appetite: Poor Muscle strength/Tone: Normal Gait/Station: Normal Psychiatric Findings - Problem List ([place] 1, 2,3) (1) Bipolar disorder Current Visit: Yes Status: Chronic (2) Schizoaffective disorder Current Visit: Yes Status: Ruled-out (3) Substance-induced anxiety disorder Current Visit: Yes Status: Acute (4) Substance-induced sleep disorder Current Visit: Yes Status: Acute (5) Opioid dependence with withdrawal Current Visit: Yes Status: Acute (6) Cocaine dependence Current Visit: Yes Status: Acute (7) Nicotine dependence Current Visit: Yes Status: Chronic Qualifiers: Nicotine product type: cigarettes Substance use status: uncomplicated Qualified Code(s): F17.210 - Nicotine dependence, cigarettes, uncomplicated (8) Hepatitis C virus Current Visit: No Status: Chronic Qualifiers: Viral hepatitis chronicity: chronic Hepatic coma status: without hepatic coma Qualified Code(s): B18.2 - Chronic viral hepatitis C - Initial Treatment Plan Initial Treatment Plan: 1) Start Seroquel 100 mg po HS. 2) Continue inpatient detoxiication
[2020-02-03] MEDS ORDERED: METHADONE HCL 5 MG TABLET (FOR DETOX USE ONLY) PO ONE (10:00)
[2020-02-03 10:21] LABS: HEMATOCRIT 39.6 % (35.4-49); HEMOGLOBIN 12.9 GM/dL (11.7-16.9); MCH 28.5 pg (25.7-33.7); MCHC 32.7 g/dl (32.0-35.9); MEAN CELL VOLUME 87.2 fl (80-96); MEAN PLT VOLUME 8.1 fl (7.5-11.1); PLATELET COUNT 310 K/MM3 (134-434); RBC 4.54 M/mm3 (4.00-5.60); RDW 14.5 % (11.9-15.9)
[2020-02-03] MEDS: NICOTINE 14 MG/24 HOURS TOPICAL PATCH TD SCH (10:35)
[2020-02-03] MEDS: PRENATAL VITAMINS W/ FOLIC ACID TABLET (FP) PO SCH (10:35)
[2020-02-03 10:36] LABS: ALBUMIN 3.2 g/dl (3.4-5.0); BILIRUBIN,TOTAL 1.2 mg/dL (0.2-1); BLOOD UREA NITROGEN 7.1 mg/dL (7-18); CALCIUM 8.9 mg/dL (8.5-10.1); CREATININE 0.8 mg/dL (0.55-1.3); POTASSIUM 4.4 mmol/L (3.5-5.1); TOT PROT 7.5 g/dl (6.4-8.2)
--- NOTE | 2020-02-03 17:16 | EKG ---
Test Reason : Blood Pressure : / mmHG Vent. Rate : 074 BPM Atrial Rate : 074 BPM P-R Int : 142 ms QRS Dur : 080 ms QT Int : 380 ms P-R-T Axes : 056 069 053 degrees QTc Int : 421 ms NORMAL SINUS RHYTHM WITH SINUS ARRHYTHMIA NORMAL ECG WHEN COMPARED WITH ECG OF 07-APR-2018 20:18, NO SIGNIFICANT CHANGE WAS FOUND Confirmed by MD Hank, Dilshad ([id number]) on 02/03/2020 5:15:32 PM Referred By: Confirmed By:Dilshad Mckinney MD
[2020-02-03] MEDS: METHOCARBAMOL 500 MG TABLET PO PRN (20:02)
[2020-02-03] MEDS: MELATONIN 5 MG TABLETS PO SCH (22:27)
[2020-02-03] MEDS: QUEtiapine FUMARATE 100 MG TABLET (FP) PO SCH (22:27)
[2020-02-03] MEDS: THIAMINE HCL 100 MG TABLET (FP) PO SCH (22:28)
[2020-02-03] MEDS: IBUPROFEN 400 MG TABLET (FP) PO PRN (23:40)
--- NOTE | 2020-02-04 08:57 | PN ---
S COWS - Scale Resting Pulse: 1= [place] 81-100 Sweatin= No chills or Flushing Restless Observation: 1= Difficult to Sit Still Pupil Size: 1= Pupils >than Normal Bone or Joint Aches: 2= Severe Diffuse Aches Runny Nose/ Eye Tearin= Runny Nose/Eyes GI Upset > 30mins: 2= Nausea/Diarrhea Tremor Observation of Outstretched Hands: 2= Slight Tremor Visible Yawning Observation: 1= 1-2x During Session Anxiety or Irritability: 2=Irritable/Anxious Goose Flesh Skin: 0=Smooth Skin COWS Score: 14 S Progress Note (SOAP) Subjective: alert,irritable,anxious,interrupted sleep,tremor,pain in the body,back,ext remities,pain in both forearm Objective: 02/04/20 08:53 Laboratory Last Values WBC 7.0 K/mm3 (4.0-10.0) 02/03/20 06:45 RBC 4.54 M/mm3 (4.00-5.60) 02/03/20 06:45 Hgb 12.9 GM/dL (11.7-16.9) 02/03/20 06:45 Hct 39.6 % (35.4-49) 02/03/20 06:45 MCV 87.2 fl (80-96) 02/03/20 06:45 MCH 28.5 pg (25.7-33.7) 02/03/20 06:45 MCHC 32.7 g/dl (32.0-35.9) 02/03/20 06:45 RDW 14.5 % (11.9-15.9) 02/03/20 06:45 Plt Count 310 K/MM3 (134-434) 02/03/20 06:45 MPV 8.1 fl (7.5-11.1) 02/03/20 06:45 Sodium 137 mmol/L (136-145) 02/03/20 06:45 Potassium 4.4 mmol/L (3.5-5.1) 02/03/20 06:45 Chloride 104 mmol/L (98-107) 02/03/20 06:45 Carbon Dioxide 26 mmol/L (21-32) 02/03/20 06:45 Anion Gap 7 MMOL/L (8-16) L 02/03/20 06:45 BUN 7.1 mg/dL (7-18) 02/03/20 06:45 Creatinine 0.8 mg/dL (0.55-1.3) 02/03/20 06:45 Est GFR (CKD-EPI)AfAm 142.89 02/03/20 06:45 Est GFR (CKD-EPI)NonAf 123.29 02/03/20 06:45 Random Glucose 95 mg/dL (74-106) 02/03/20 06:45 Calcium 8.9 mg/dL (8.5-10.1) 02/03/20 06:45 Total Bilirubin 1.2 mg/dL (0.2-1) H 02/03/20 06:45 AST 33 U/L (15-37) 02/03/20 06:45 ALT 52 U/L (13-61) 02/03/20 06:45 Alkaline Phosphatase 131 U/L (45-117) H 02/03/20 06:45 Total Protein 7.5 g/dl (6.4-8.2) 02/03/20 06:45 Albumin 3.2 g/dl (3.4-5.0) L 02/03/20 06:45 Syphilis Serology Non-reactive (NONREACTIVE) 02/03/20 06:45 COVID-19 ([place]) Not detected (Not Detected) 02/02/20 16:00 HIV Ag/Ab Combo Qual Negative (NEGATIVE) 02/03/20 06:45 Assessment: 02/04/20 08:53 severe withdrawal symptom cellulitis over tack chacorta at the site of injection both forearm Plan: severe withdrawal symptom,medications adjusted on methadone detox,valium 10 mgs po q 4 hrs prn for severe withdrawal, keflex 500 mgs po q 6 hrs for 7 days for cellulitis,bacitracin ointment both forearma over the track ascencio,close monitoring
[2020-02-04] MEDS ORDERED: METHADONE HCL 10 MG TABLET (FOR DETOX USE ONLY) PO ONE ×2 (10:00)
[2020-02-04] MEDS: PRENATAL VITAMINS W/ FOLIC ACID TABLET (FP) PO SCH (10:02)
[2020-02-04] MEDS: NICOTINE 14 MG/24 HOURS TOPICAL PATCH TD SCH (10:02)
[2020-02-04] MEDS: BACITRACIN 0.9 GM PACKET TP SCH ×2 (10:02→22:34)
[2020-02-04] MEDS: CEPHALEXIN MONOHYDRATE 500 MG CAPSULE (UD) PO SCH ×3 (13:17→23:55)
[2020-02-04] MEDS: QUEtiapine FUMARATE 100 MG TABLET (FP) PO SCH (22:34)
[2020-02-04] MEDS: MELATONIN 5 MG TABLETS PO SCH (22:34)
[2020-02-04] MEDS: THIAMINE HCL 100 MG TABLET (FP) PO SCH (22:34)
[2020-02-05] MEDS ORDERED: METHADONE HCL 5 MG TABLET (FOR DETOX USE ONLY) PO ONE ×2 (06:00→10:00)
[2020-02-05] MEDS: CEPHALEXIN MONOHYDRATE 500 MG CAPSULE (UD) PO SCH ×3 (06:24→17:33)
--- NOTE | 2020-02-05 08:36 | PN ---
BHS COWS - Scale Resting Pulse: 1= [place] 81-100 Sweatin= Chills/Flushing Restless Observation: 0= Sits Still Pupil Size: 1= Pupils >than Normal Bone or Joint Aches: 1= Mild Discomfort Runny Nose/ Eye Tearin= None GI Upset > 30mins: 1= Stomach Cramp Tremor Observation of Outstretched Hands: 2= Slight Tremor Visible Yawning Observation: 0= None Anxiety or Irritability: 2=Irritable/Anxious Goose Flesh Skin: 0=Smooth Skin COWS Score: 9 BHS Progress Note (SOAP) Subjective: 24 years old male admitted on 02/02/20 for opiate withdrawal sx management treating with methadone detox regiment sitting on the edge of the bed eating breakfast no trouble chowing swallowing tolerated food well tolerated keflex well feeling better today less body aches discussing aftercare with staff mr gandara prefers [facility] for opiate recovery Objective: 02/05/20 12:02 Vital Signs - 24 hr 02/04/20 02/04/20 02/04/20 12:30 16:36 20:56 Temperature 97.8 F 100.5 F H 99.3 F Pulse Rate 95 H 103 H 102 H Respiratory 18 18 18 Rate Blood Pressure 134/77 127/80 116/68 O2 Sat by Pulse 100 97 Oximetry (%) 02/05/20 02/05/20 06:39 08:28 Temperature 98.0 F 97.8 F Pulse Rate 77 99 H Respiratory 16 16 Rate Blood Pressure 98/60 108/67 O2 Sat by Pulse 97 Oximetry (%) Laboratory Tests 02/02/20 02/03/20 02/03/20 16:00 06:45 06:45 WBC RBC Hgb Hct MCV MCH MCHC RDW Plt Count MPV Sodium Potassium Chloride Carbon Dioxide Anion Gap BUN Creatinine Est GFR (CKD-EPI)AfAm Est GFR (CKD-EPI)NonAf Random Glucose Calcium Total Bilirubin AST ALT Alkaline Phosphatase Total Protein Albumin Syphilis Serology Non-reactive COVID-19 ([place]) Not detected HIV Ag/Ab Combo Qual Negative 02/03/20 02/03/20 06:45 06:45 WBC 7.0 RBC 4.54 Hgb 12.9 Hct 39.6 MCV 87.2 MCH 28.5 MCHC 32.7 RDW 14.5 Plt Count 310 MPV 8.1 Sodium 137 Potassium 4.4 Chloride 104 Carbon Dioxide 26 Anion Gap 7 L BUN 7.1 Creatinine 0.8 Est GFR (CKD-EPI)AfAm 142.89 Est GFR (CKD-EPI)NonAf 123.29 Random Glucose 95 Calcium 8.9 Total Bilirubin 1.2 H AST 33 ALT 52 Alkaline Phosphatase 131 H Total Protein 7.5 Albumin 3.2 L Syphilis Serology COVID-19 ([place]) HIV Ag/Ab Combo Qual lab noted Assessment: 02/05/20 12:03 opiate withdrawal cellulitis both fore arms treating with keflex Plan: methadone regiment continue keflex
[2020-02-05] MEDS: NICOTINE 14 MG/24 HOURS TOPICAL PATCH TD SCH (10:16)
[2020-02-05] MEDS: PRENATAL VITAMINS W/ FOLIC ACID TABLET (FP) PO SCH (10:17)
[2020-02-05] MEDS: BACITRACIN 0.9 GM PACKET TP SCH ×2 (10:17→22:05)
[2020-02-05] MEDS: CLINDAMYCIN PHOSPHATE 1% TOPICAL SOLUTION 30 ML BOTTLE TP SCH ×2 (13:50→22:06)
[2020-02-05] MEDS: diazePAM 5 MG TABLET PO PRN ×2 (17:34→22:05)
[2020-02-05] MEDS: THIAMINE HCL 100 MG TABLET (FP) PO SCH (22:05)
[2020-02-05] MEDS: QUEtiapine FUMARATE 100 MG TABLET (FP) PO SCH (22:05)
[2020-02-05] MEDS: MELATONIN 5 MG TABLETS PO SCH (22:07)
[2020-02-06] MEDS: CEPHALEXIN MONOHYDRATE 500 MG CAPSULE (UD) PO SCH ×5 (00:03→23:01)
[2020-02-06] MEDS ORDERED: METHADONE HCL 5 MG TABLET (FOR DETOX USE ONLY) PO ONE (05:00)
--- NOTE | 2020-02-06 09:15 | PN ---
BHS COWS - Scale Resting Pulse: 1= [place] 81-100 Sweatin= No chills or Flushing Restless Observation: 0= Sits Still Pupil Size: 0= Normal to Room Light Bone or Joint Aches: 1= Mild Discomfort Runny Nose/ Eye Tearin= None GI Upset > 30mins: 0= None Tremor Observation of Outstretched Hands: 0= None Yawning Observation: 0= None Anxiety or Irritability: 2=Irritable/Anxious Goose Flesh Skin: 0=Smooth Skin COWS Score: 4 BHS Progress Note (SOAP) Subjective: alert,irritable,anxious,interrupted sleep,interrupted sleep Objective: 02/06/20 09:11 Vital Signs Temperature 97.5 F L 02/06/20 08:29 Pulse Rate 96 H 02/06/20 08:29 Respiratory Rate 18 02/06/20 08:29 Blood Pressure 127/82 02/06/20 08:29 O2 Sat by Pulse Oximetry (%) 100 02/06/20 05:39 Assessment: 02/06/20 09:14 withdrawal symptom Plan: continue detox,discharge in am
[2020-02-06] MEDS: PRENATAL VITAMINS W/ FOLIC ACID TABLET (FP) PO SCH (09:51)
[2020-02-06] MEDS: BACITRACIN 0.9 GM PACKET TP SCH ×2 (09:52→22:08)
[2020-02-06] MEDS: NICOTINE 14 MG/24 HOURS TOPICAL PATCH TD SCH (09:52)
[2020-02-06] MEDS: diazePAM 5 MG TABLET PO PRN ×4 (09:55→23:01)
[2020-02-06] MEDS ORDERED: METHADONE HCL 10 MG TABLET (FOR DETOX USE ONLY) PO ONE ×2 (10:00)
[2020-02-06] MEDS: CLINDAMYCIN PHOSPHATE 1% TOPICAL SOLUTION 30 ML BOTTLE TP SCH ×2 (10:28→22:09)
[2020-02-06] MEDS: IBUPROFEN 400 MG TABLET (FP) PO PRN (19:22)
[2020-02-06] MEDS: METHOCARBAMOL 500 MG TABLET PO PRN (19:22)
[2020-02-06] MEDS: QUEtiapine FUMARATE 100 MG TABLET (FP) PO SCH (22:08)
[2020-02-06] MEDS: THIAMINE HCL 100 MG TABLET (FP) PO SCH (22:08)
[2020-02-06] MEDS: MELATONIN 5 MG TABLETS PO SCH (22:08)
[2020-02-07] MEDS ORDERED: METHADONE HCL 5 MG TABLET (FOR DETOX USE ONLY) PO ONE ×2 (06:00→10:15)
[2020-02-07] MEDS ORDERED: METHADONE HCL 5 MG TABLET PO SCH (06:00)
[2020-02-07] MEDS: CEPHALEXIN MONOHYDRATE 500 MG CAPSULE (UD) PO SCH ×2 (07:34→12:40)
[2020-02-07 09:11] VITALS: BP 137/84; PULSE 105; TEMP 97.8
--- NOTE | 2020-02-07 10:03 | PN ---
BHS COWS - Scale Resting Pulse: 2= [place] 101-120 Sweatin= No chills or Flushing Restless Observation: 0= Sits Still Pupil Size: 0= Normal to Room Light Bone or Joint Aches: 0= None Runny Nose/ Eye Tearin= None GI Upset > 30mins: 0= None Tremor Observation of Outstretched Hands: 0= None Yawning Observation: 0= None Anxiety or Irritability: 0= None Goose Flesh Skin: 0=Smooth Skin COWS Score: 2 BHS Progress Note (SOAP) Subjective: alert,no complaint Objective: 02/07/20 10:01 Vital Signs Temperature 97.8 F 02/07/20 08:44 Pulse Rate 105 H 02/07/20 08:44 Respiratory Rate 16 02/07/20 08:44 Blood Pressure 137/84 02/07/20 08:44 O2 Sat by Pulse Oximetry (%) 99 02/07/20 06:24 Assessment: 02/07/20 10:01 detox completed,no withdrawal symptom Plan: discharge today,follow up with after care program as arrangement [facility]
[2020-02-07] MEDS: NICOTINE 14 MG/24 HOURS TOPICAL PATCH TD SCH (10:06)
[2020-02-07] MEDS: PRENATAL VITAMINS W/ FOLIC ACID TABLET (FP) PO SCH (10:07)
--- NOTE | 2020-02-07 10:08 | DS ---
[facility] Detox Discharge Summary Admission Date: 02/02/20 Discharge Date: 02/07/20 - History Present History: Cocaine Dependence, Opioid Dependence Additional Comments: alert,oriented x 3 ambulation on the unit lung clear on auscultation bilaterally abdomen soft,no pain,no tenderness iv track chacorta both forearm area of opening ,no bleeding detox completed,no withdrawal symptom patient is stable for discharge to rehab may be a candidate fr mat total time of discharge 35 minutes Pertinent Past History: hepatitis c ivdu cellulitis both forearms iv tack ascencio bipolar disorder - Physical Exam Results Vital Signs: Vital Signs Temperature 97.8 F 02/07/20 08:44 Pulse Rate 105 H 02/07/20 08:44 Respiratory Rate 16 02/07/20 08:44 Blood Pressure 137/84 02/07/20 08:44 O2 Sat by Pulse Oximetry (%) 99 02/07/20 06:24 Pertinent Admission Physical Exam Findings: withdrawal signs and symptom Laboratory Last Values WBC 7.0 K/mm3 (4.0-10.0) 02/03/20 06:45 RBC 4.54 M/mm3 (4.00-5.60) 02/03/20 06:45 Hgb 12.9 GM/dL (11.7-16.9) 02/03/20 06:45 Hct 39.6 % (35.4-49) 02/03/20 06:45 MCV 87.2 fl (80-96) 02/03/20 06:45 MCH 28.5 pg (25.7-33.7) 02/03/20 06:45 MCHC 32.7 g/dl (32.0-35.9) 02/03/20 06:45 RDW 14.5 % (11.9-15.9) 02/03/20 06:45 Plt Count 310 K/MM3 (134-434) 02/03/20 06:45 MPV 8.1 fl (7.5-11.1) 02/03/20 06:45 Sodium 137 mmol/L (136-145) 02/03/20 06:45 Potassium 4.4 mmol/L (3.5-5.1) 02/03/20 06:45 Chloride 104 mmol/L (98-107) 02/03/20 06:45 Carbon Dioxide 26 mmol/L (21-32) 02/03/20 06:45 Anion Gap 7 MMOL/L (8-16) L 02/03/20 06:45 BUN 7.1 mg/dL (7-18) 02/03/20 06:45 Creatinine 0.8 mg/dL (0.55-1.3) 02/03/20 06:45 Est GFR (CKD-EPI)AfAm 142.89 02/03/20 06:45 Est GFR (CKD-EPI)NonAf 123.29 02/03/20 06:45 Random Glucose 95 mg/dL (74-106) 02/03/20 06:45 Calcium 8.9 mg/dL (8.5-10.1) 02/03/20 06:45 Total Bilirubin 1.2 mg/dL (0.2-1) H 02/03/20 06:45 AST 33 U/L (15-37) 02/03/20 06:45 ALT 52 U/L (13-61) 02/03/20 06:45 Alkaline Phosphatase 131 U/L (45-117) H 02/03/20 06:45 Total Protein 7.5 g/dl (6.4-8.2) 02/03/20 06:45 Albumin 3.2 g/dl (3.4-5.0) L 02/03/20 06:45 Syphilis Serology Non-reactive (NONREACTIVE) 02/03/20 06:45 COVID-19 ([place]) Not detected (Not Detected) 02/02/20 16:00 HIV Ag/Ab Combo Qual Negative (NEGATIVE) 02/03/20 06:45 Vital Signs Temperature 97.8 F 02/07/20 08:44 Pulse Rate 105 H 02/07/20 08:44 Respiratory Rate 16 02/07/20 08:44 Blood Pressure 137/84 02/07/20 08:44 O2 Sat by Pulse Oximetry (%) 99 02/07/20 06:24 - Treatment Hospital Course: Detox Protocol Followed, Detoxed Safely, Responded well, Discharged Condition Good, Rehab Referral Accepted - Medication Discharge Medications: Ambulatory Orders Naloxone HCl [Narcan] 4 mg NS ASDIR PRN #1 spray 02/05/20 - Diagnosis (1) Cocaine dependence Current Visit: Yes Status: Acute (2) Opioid dependence with withdrawal Current Visit: Yes Status: Acute (3) Hepatitis C virus Current Visit: No Status: Chronic Qualifiers: Viral hepatitis chronicity: chronic Hepatic coma status: without hepatic coma Qualified Code(s): B18.2 - Chronic viral hepatitis C (4) Track ascencio due to intravenous drug abuse Current Visit: No Status: Chronic (5) Cellulitis of forearm Current Visit: Yes Status: Acute (6) Bipolar disorder Current Visit: Yes Status: Acute - AMA Did Patient Leave Against Medical Advice: No
--- NOTE | 2020-02-07 10:12 | PN ---
S Progress Note Note: mr gandara has not received methadone 5 mg po today methaodne 5 mg po now one dose
[2020-02-07] MEDS: CLINDAMYCIN PHOSPHATE 1% TOPICAL SOLUTION 30 ML BOTTLE TP SCH (10:18)
[2020-02-07] MEDS: BACITRACIN 0.9 GM PACKET TP SCH (10:19)
[2020-02-07] MEDS ORDERED: hydrOXYzine PAMOATE 25 MG CAPSULE (FP) PO ONE (11:33)
== END 2020-02-07 12:27 | disposition other institution (70) | DRG 773 ==
LOC: YASAS 14:13 → Y3N 15:42
PROVIDERS: ADMIT Allergy & Immunology; ATTEND Allergy & Immunology
PROC: HZ2ZZZZ Detoxification Services for Substance Abuse Treatment (ICD-10-PCS; principal; 2020-02-02)
DX: F11.23 Opioid dependence with withdrawal (principal); F14.20 Cocaine dependence, uncomplicated; F17.210 Nicotine dependence, cigarettes, uncomplicated; F19.280 Other psychoactive substance dependence with psychoactive substance-induced anxiety disorder; F19.282 Other psychoactive substance dependence with psychoactive substance-induced sleep disorder; F31.9 Bipolar disorder, unspecified; L03.113 Cellulitis of right upper limb; L03.114 Cellulitis of left upper limb; B18.2 Chronic viral hepatitis C; Z91.5 Personal history of self-harm; Z56.0 Unemployment, unspecified; Z59.0 Homelessness; Z91.013 Allergy to seafood
CPT/HCPCS: 36415; 80053; 85027; 86780; 87389; 93005; 93010; U0003

== ENCOUNTER 2020-02-07 12:31 | Inpatient (IN) | payer OTHER ==
--- NOTE | 2020-02-07 11:35 | HP ---
[facility] Rehab Assess/Revision - Admission History Admitted to Rehab from: [facility] Date of Admission to Rehab: 02/07/20 - Findings Detox History & Physical reviewed: Yes Concur with findings: Yes Comments/Additional Findings: transferred from detox to rehab admission as per protocol Inpatient Rehab Admission - Rehab Decision to Admit Inpatient rehab admission?: Yes - Initial Determination Are CD services needed?: Yes Free of communicable disease: Yes Not in need of hospitalization: Yes - Rehab Admission Criteria Previous failed treatment: Yes Poor recovery environment: Yes Comorbidities: Yes Lacks judgement: Yes Patient is meeting Inpatient Rehab admission criteria:: Yes
[2020-02-07 13:01] VITALS: BP 126/65; PULSE 109
--- NOTE | 2020-02-07 13:53 | CONSULT ---
[facility] Psychiatric Consult - Data Date of interview: 02/07/20 Admission source: 3N Identifying data: Mr Orozco is a 24 years old [place]oc[place] male, living as , unemployed with no source of income, homeless admitted from detox on 02/07/20 for inpatient rehabilitation treatment for for opioid Substance Abuse History: Reports history of heroin use. Refer to addiction counselor's summary for further information Medical History: Significant for hepatitis C. Smokes cigarettes 1 ppd Psychiatric History: Patient was just referred from detox where he was seen by ro[facility]te on 02/03/20. He is strickly turkish-speaking. When seen in detox, he denied previous psychiatric treatment. However when confronted with historical narrative on a previous admission to this facility, he acknowledges being diagn osed with Bipolar Disorder during adolescence while in [place]. Also acknowleged multiple previous psychiatric hospitalizations both in [place] and [facility]. He is known to [place] and [facility]. Reportedly, he has a history of non adherence to OPD care and medications. He is not currently affiliated with OPD care and has been off medications for months. During the admission to detox, he was prescribed Seroquel 100 mg/hs According to EMR, he has 3 previous suicidal attempts via overdose on pills. At present, denies experiencing psychotic, manic or depressive symptoms, S/H ideations. However, reports still feeling anxious and sleeping poorly. Requests medication for anxiety in addition to continue Seroquel Physical/Sexual Abuse/Trauma History: This topic is not addressed due to patient reluctance Mental Status Exam - Mental Status Exam Alert and Oriented to: Time, Place, Person Cognitive Function: Fair Patient Appearance: Well Groomed Mood: Anxious Affect: Appropriate Patient Behavior: Cooperative Speech Pattern: Clear Voice Loudness: Normal Thought Process: Intact, Goal Oriented Hallucinations: Denies Suicidal Ideation: Denies Homicidal Ideation: Denies Insight/Judgement: Fair Sleep: Poorly Appetite: Good Muscle strength/Tone: Normal Gait/Station: Normal Psychiatric Findings - Problem List ([place] 1, 2,3) (1) Bipolar disorder Current Visit: No Status: Acute (2) Schizoaffective disorder Current Visit: No Status: Ruled-out (3) Substance-induced anxiety disorder Current Visit: No Status: Acute (4) Substance-induced sleep disorder Current Visit: No Status: Acute (5) Opioid dependence Current Visit: Yes Status: Acute (6) Cocaine dependence Current Visit: No Status: Acute Qualifiers: Substance use status: uncomplicated Qualified Code(s): F14.20 - Cocaine dependence, uncomplicated (7) Nicotine dependence Current Visit: Yes Status: Chronic (8) Hepatitis C virus Current Visit: No Status: Chronic Qualifiers: Viral hepatitis chronicity: chronic Hepatic coma status: without hepatic coma Qualified Code(s): B18.2 - Chronic viral hepatitis C - Initial Treatment Plan Initial Treatment Plan: 1) Continue Seroquel 100 mg po HS. 2) Start Vistaril 50 mg po Q4hrs prn for anxiety. 3) Continue inpatient detoxification
[2020-02-07] MEDS ORDERED: MENTHOL/PHENOL 1 EACH UD MM PRN (14:20)
[2020-02-07] MEDS ORDERED: LOPERAMIDE HCL 2 MG CAPSULE PO PRN (14:20)
[2020-02-07] MEDS ORDERED: MAGNESIUM HYDROX 2400MG/30ML ORAL SUSPENSION 30 ML CUP PO PRN (14:20)
[2020-02-07] MEDS ORDERED: MAGNESIUM CITRATE 300 ML BOTTLE PO PRN (14:20)
[2020-02-07] MEDS ORDERED: ACETAMINOPHEN 325 MG TABLET (FP) PO PRN (14:20)
[2020-02-07] MEDS ORDERED: IBUPROFEN 400 MG TABLET (FP) PO PRN (14:20)
[2020-02-07] MEDS ORDERED: P-EPHED 60MG/TRIPROLIDI 2.5MG TABLET PO PRN (14:20)
[2020-02-07] MEDS ORDERED: NICOTINE POLACRILEX 2 MG GUM BUC PRN (14:20)
[2020-02-07] MEDS ORDERED: MAG HYDROX/AL HYDROX/SIMETH 30 ML UNIT-DOSE CUP PO PRN (14:20)
[2020-02-07] MEDS ORDERED: guaiFENesin 200 MG/10 ML 10 ML UNIT-DOSE CUPS PO PRN (14:20)
[2020-02-07] MEDS ORDERED: hydrOXYzine PAMOATE 50 MG CAPSULE (FP) PO PRN (14:22)
[2020-02-07] MEDS ORDERED: METHOCARBAMOL 500 MG TABLET PO PRN (14:24)
--- NOTE | 2020-02-07 15:04 | PN ---
[facility] Progress Note Note: patient did not want to complete treatment in rehab,the arrangement is made for patient to go to [facility] rehab by counselor ,patient fell better to go there that he can communicate better in colombian,left rehab in good and stable condition,prscription sent to [facility]
--- NOTE | 2020-02-07 15:11 | DS ---
[facility] Rehab Discharge Summary - [facility] Rehab Discharge Summary Admission Date: 02/07/20 Discharge Date: 02/07/20 - History Present History: Cannabis dependence, Cocaine dependence, Opioid dependence Additional Comments: patent will go to [facility] stated he feel more comfortable and can communicate better in [place], arrangement for rehab in [facility] on 02/08/20,patient will go home today Pertinent Past History: hepatitis c ivdu cellulitis both forearms iv track ascencio bipolar disorder weight loss - Discharge Physical Exam Vital Signs: Vital Signs Temperature Pulse Rate 109 H 02/07/20 12:35 Respiratory Rate 18 02/07/20 12:35 Blood Pressure 126/65 02/07/20 12:35 O2 Sat by Pulse Oximetry (%) Pertinent Admission Physical Exam Findings: Vital Signs Temperature Pulse Rate 109 H 02/07/20 12:35 Respiratory Rate 18 02/07/20 12:35 Blood Pressure 126/65 02/07/20 12:35 O2 Sat by Pulse Oximetry (%) - Treatment Discharge Condition: Discharge condition good Hospital Course: patient changed his mind not to complete treatment,[facility] he [facility] communicate better in [place], the keflex 500 mgs po q 6 hrs for 7 days ,clindymycin cream 1% gel bid to both forearms bid ,narcan nasal spray sent to [facility] - Medication Discharge Medications: Ambulatory Orders Cephalexin Monohydrate [Keflex -] 500 mg PO Q6HPO #30 capsule 02/07/20 Clindamycin 1% Gel [Cleocin 1% Gel -] 1 applic TP BID #1 tube 02/07/20 Naloxone HCl [Narcan] 4 mg NS ASDIR PRN #1 spray 02/07/20 - Medication-Assisted Treatment (MAT) Medication-Assisted Treatment (MAT): No - Discharge Instructions Diet, activity, other medical instructions: Diet: Activity: Other medical instructions: - Diagnosis (1) Opioid dependence Current Visit: Yes Status: Acute (2) Weight loss Current Visit: Yes Status: Acute (3) Cellulitis of forearm Current Visit: No Status: Acute (4) Cocaine dependence Current Visit: No Status: Acute Qualifiers: Substance use status: uncomplicated Qualified Code(s): F14.20 - Cocaine dependence, uncomplicated (5) Bipolar disorder Current Visit: No Status: Chronic (6) Nicotine dependence Current Visit: No Status: Chronic Qualifiers: Nicotine product type: cigarettes Substance use status: uncomplicated Qualified Code(s): F17.210 - Nicotine dependence, cigarettes, uncomplicated (7) Track ascencio due to intravenous drug abuse Current Visit: No Status: Chronic - Follow-up Referral Minutes to complete discharge: 30 - AMA Did Patient Leave Against Medical Advice: No Additional Comments: patient left unit in good and stable condition
[2020-02-07] MEDS ORDERED: CEPHALEXIN MONOHYDRATE 500 MG CAPSULE (UD) PO SCH (18:00)
[2020-02-07] MEDS ORDERED: QUEtiapine FUMARATE 100 MG TABLET (FP) PO SCH (22:00)
[2020-02-07] MEDS ORDERED: CLINDAMYCIN PHOSPHATE 1% TOPICAL GEL 30 GM TUBE TP SCH (22:00)
[2020-02-07] MEDS ORDERED: MELATONIN 5 MG TABLETS PO SCH (22:00)
[2020-02-07] MEDS ORDERED: cloNIDine HCL 0.1 MG TABLET PO SCH (22:00)
[2020-02-07] MEDS ORDERED: THIAMINE HCL 100 MG TABLET (FP) PO SCH (22:00)
[2020-02-08] MEDS ORDERED: NICOTINE 21 MG/24 HOURS TOPICAL PATCH TD SCH (10:00)
[2020-02-08] MEDS ORDERED: PRENATAL VITAMINS W/ FOLIC ACID TABLET (FP) PO SCH (10:00)
== END 2020-02-07 15:20 | disposition home or self-care (01) | DRG 772 ==
LOC: YASAS 12:31 → Y3E 12:33
PROVIDERS: ADMIT Allergy & Immunology; ATTEND Allergy & Immunology
PROC: HZ42ZZZ Group Counseling for Substance Abuse Treatment, Cognitive-Behavioral (ICD-10-PCS; principal; 2020-02-07)
DX: F11.20 Opioid dependence, uncomplicated (principal); F14.20 Cocaine dependence, uncomplicated; F12.20 Cannabis dependence, uncomplicated; F17.210 Nicotine dependence, cigarettes, uncomplicated; F31.9 Bipolar disorder, unspecified; F19.282 Other psychoactive substance dependence with psychoactive substance-induced sleep disorder; F19.280 Other psychoactive substance dependence with psychoactive substance-induced anxiety disorder; B18.2 Chronic viral hepatitis C; L03.113 Cellulitis of right upper limb; L03.114 Cellulitis of left upper limb; R63.4 Abnormal weight loss; Z56.0 Unemployment, unspecified; Z59.0 Homelessness; Z91.013 Allergy to seafood

== ENCOUNTER 2020-03-03 13:55 | Inpatient (IN) | payer OTHER ==
--- NOTE | 2020-03-03 17:00 | HP ---
<Hiral Olvera - Last Filed: 03/04/20 16:50> COWS - Scale Sweatin= No chills or Flushing Restless Observation: 0= Sits Still Pupil Size: 1= Pupils >than Normal Bone or Joint Aches: 0= None Runny Nose/ Eye Tearin= None GI Upset > 30mins: 2= Nausea/Diarrhea Tremor Observation: 2= Slight Tremor Visible Yawning Observation: 0= None Anxiety or Irritability: 0= None Goose Flesh Skin: 0=Smooth Skin (5) CIWA Score - Admission Criteria OASAS Guidelines: Admission for Medically Managed Detox: Requires at least one of the followin. CIWA greater than 12 2. Seizures within the past 24 hours 3. Delirium tremens within the past 24 hours 4. Hallucinations within the past 24 hours 5. Acute intervention needed for co occurring medical disorder 6. Acute intervention needed for co occurring psychiatric disorder 7. Severe withdrawal that cannot be handled at a lower level of care (continued vomiting, continued diarrhea, abnormal vital signs) requiring intravenous medication and/or fluids 8. Admitting History and Physical - Admission Chief Complaint: Heroin, cocaine, xanax History of Present Illness: Patient is a 24 y/o male who use cocaine, heroin, and xanax who is interested in detox. Patient last used cocaine, heroin, and xanax yesterday. Used 1 bundle of heroin (10 bags), 5 strips of cocaine, 1-2mg 4-5 pills of xanax. First started using drugs at age 12, first started using heroin at 19. Uses IV heroin. Patient has been to rehab 4-5 times. Has been sober for 3 years in the past, recently has only been able to go 4 days. Patient meets inpatient criteria for detox with recent drug usage and social situation is homeless. History Source: Patient Limitations to Obtaining History: No Limitations - Smoking History Smoking history: Current every day smoker Have you smoked in the past 12 months: Yes Aproximately how many cigarettes per day: 20 - Alcohol/Substance Use Hx Alcohol Use: No History of Substance Use: reports: Cocaine, Heroin - Social History Usual Living Arrangement: Yes: Other (homeless) Do you think of yourself as: Straight/Heterosexual (has a ) Occupation: no income Admission ROS S - HPI Chief Complaint: cocaine and heroin use, upset stomach Allergies/Adverse Reactions: Allergies Allergy/AdvReac Type Severity Reaction Status Date / Time Fish Containing Products Allergy Verified 03/03/20 17:57 - Ebola screening Have you traveled outside of the country in the last 21 days: No Have you had contact with anyone from an Ebola affected area: No Have you been sick,other than usual withdrawal symptoms: No Do you have a fever: No - Review of Systems Constitutional: No Symptoms Reported EENT: reports: No Symptoms Reported Respiratory: reports: No Symptoms reported Cardiac: reports: No Symptoms Reported GI: reports: Diarrhea Patient History - Patient Medical History Hx Anemia: No Hx Asthma: No Hx Chronic Obstructive Pulmonary Disease (COPD): No Hx Cancer: No Hx Cardiac Disorders: No Hx Congestive Heart Failure: No Hx Hypertension: No Hx Hypercholesterolemia: No Hx Pacemaker: No HX Cerebrovascular Accident: No Hx Seizures: No Hx Dementia: No Hx Diabetes: No Hx Gastrointestinal Disorders: No Hx Liver Disease: No Hx Genitourinary Disorders: No Hx Sexually Transmitted Disorders: No Hx Renal Disease (ESRD): No Hx Thyroid Disease: No Hx Human Immunodeficiency Virus (HIV): No Hx Hepatitis C: Yes (no tx ) Hx Depression: Yes Hx Suicide Attempt: No Hx Bipolar Disorder: Yes Hx Schizophrenia: Yes - Patient Surgical History Past Surgical History: No Hx Neurologic Surgery: No Hx Cataract Extraction: No Hx Cardiac Surgery: No Hx Lung Surgery: No Hx Breast Surgery: No Hx Breast Biopsy: No Hx Abdominal Surgery: No Hx Appendectomy: No Hx Cholecystectomy: No Hx Genitourinary Surgery: No Hx Section: No Hx Orthopedic Surgery: No Anesthesia Reaction: No - PPD History Date: 02/04/20 Results: 0mm - Smoking Cessation Smoking history: Current every day smoker Have you smoked in the past 12 months: Yes Aproximately how many cigarettes per day: 20 Cigars Per Day: 0 Hx Chewing Tobacco Use: No Initiated information on smoking cessation: No - Substances abused Heroin Substance route: Injection Frequency: Daily Amount used: 1 bundle Age of first use: 19 Date of last use: 03/02/20 Cocaine Substance route: Injection Frequency: Daily Amount used: 3-4 bgas Age of first use: 12 Date of last use: 03/02/20 Alprazolam (Xanax) Substance route: Oral Frequency: Daily Amount used: 2-4 tabs Age of first use: 12 Date of last use: 03/02/20 Admission Physical Exam BHS - Physical General Appearance: Yes: No Apparent Distress Respiratory: Yes: Normal Breath Sounds, No Respiratory Distress Neck: Yes: No masses,lesions,Nodules Cardiology: Yes: Regular Rhythm, Regular Rate Abdominal: Yes: Within Normal Limits, Non Tender Integumentary: Yes: Rash, Other (R fore arm and upper arm with ulcers, erythematous and crusted over, left arm with smaller ulcers also erythematous) Breathalyzer - Breathalyzer Breathalyzer: 0 Vital Signs - Vital Signs Vital signs refused: No Temperature: 98.1 F Temperature source: Oral Pulse Rate: 98 Respiratory Rate: 18 Blood Pressure: 118/75 BP Location: Left Arm - Height Height: 5 ft 6 in - Weight Weight: 275 lb 9.245 oz - BMI Body Mass Index (BMI): 44.4 Urine Drug Screen - Test Device Lot number: [id number] Expiration date: 03/10/21 - Control Is test valid?: Yes - Results Drug screen NEGATIVE: No Urine drug screen results: JAMIR-Cocaine, FEN-Fentanyl, MOP-Opiates, MTD-Methadone Inpatient Rehab Admission - Rehab Decision to Admit Inpatient rehab admission?: Yes - Initial Determination Are CD services needed?: No Free of communicable disease: Yes Not in need of hospitalization: Yes - Rehab Admission Criteria Previous failed treatment: Yes Poor recovery environment: Yes Comorbidities: No Lacks judgement: No Patient is meeting Inpatient Rehab admission criteria:: Yes <Raffi Davis - Last Filed: 03/05/20 08:14> COWS - Scale Resting Pulse: 0= [place] 80 or Below CIWA Score - Admission Criteria OASAS Guidelines: Admission for Medically Managed Detox: Requires at least one of the followin. CIWA greater than 12 2. Seizures within the past 24 hours 3. Delirium tremens within the past 24 hours 4. Hallucinations within the past 24 hours 5. Acute intervention needed for co occurring medical disorder 6. Acute intervention needed for co occurring psychiatric disorder 7. Severe withdrawal that cannot be handled at a lower level of care (continued vomiting, continued diarrhea, abnormal vital signs) requiring intravenous medication and/or fluids 8. Admission Physical Exam BHS - Vital Signs Vital Signs: Vital Signs - 24 hr 03/04/20 03/04/20 03/04/20 09:15 13:03 16:45 Temperature 98.6 F 98.4 F 98.2 F Pulse Rate 89 74 82 Respiratory 18 19 18 Rate Blood Pressure 123/65 108/66 106/56 L O2 Sat by Pulse 99 100 Oximetry (%) 03/04/20 03/04/20 03/05/20 16:50 20:28 05:38 Temperature 98.1 F 98.4 F 97.3 F L Pulse Rate 98 H 75 53 L Respiratory 18 18 18 Rate Blood Pressure 118/75 107/53 L 112/68 O2 Sat by Pulse 97 96 Oximetry (%)
[2020-03-03] MEDS ORDERED: chlordiazePOXIDE HCL 25 MG CAPSULE PO PRN (17:07)
[2020-03-03] MEDS ORDERED: BISMUTH SUBSALICYLATE 524 MG/30 ML UD PO PRN (17:07)
[2020-03-03] MEDS ORDERED: MAGNESIUM CITRATE 300 ML BOTTLE PO PRN (17:07)
[2020-03-03] MEDS ORDERED: MENTHOL/PHENOL 1 EACH UD MM PRN (17:07)
[2020-03-03] MEDS ORDERED: MAGNESIUM HYDROX 2400MG/30ML ORAL SUSPENSION 30 ML CUP PO PRN (17:07)
[2020-03-03] MEDS ORDERED: ONDANSETRON *ODT* 4 MG TABLET SL ONE (17:07)
[2020-03-03] MEDS ORDERED: MAG HYDROX/AL HYDROX/SIMETH 30 ML UNIT-DOSE CUP PO PRN (17:07)
[2020-03-03] MEDS ORDERED: ACETAMINOPHEN 325 MG TABLET (FP) PO PRN ×2 (17:07)
[2020-03-03] MEDS ORDERED: IBUPROFEN 400 MG TABLET (FP) PO PRN (17:07)
[2020-03-03] MEDS ORDERED: NICOTINE POLACRILEX 2 MG GUM BUC PRN (17:07)
--- NOTE | 2020-03-03 17:36 | PN ---
"Teaching Attending Note Name of Resident: Hiral Olvera ATTENDING PHYSICIAN STATEMENT I saw and evaluated the patient. I reviewed the resident's note and discussed the case with the resident. I agree with the resident's findings and plan as documented. SUBJECTIVE: 24 y.o. male requesting detox from opiate and sedative use , most recent detox at this facility 02/07/2020 , states wa s planning to go [facility] , did not go . Vital Signs - 24 hr 03/03/20 17:11 Temperature 98.1 F Pulse Rate 98 H Respiratory 18 Rate Blood Pressure 118/75 OBJECTIVE: wnwd ANNA UE track ascencio w/ superficial excoriations. This report was requested by: Shante Woodard | Reference #: [id number] Others' Prescriptions Patient Name: Kian Orozco Date: 1995 Address: [place] [address] Sex: Male Rx Written Rx Dispensed Drug Quantity Days Supply Prescriber Name Payment Method Dispenser 02/18/2020 02/19/2020 chlordiazepoxide 25 mg capsule 8 2 Jason Murphy Medicaid [facility] ASSESSMENT AND PLAN: OUD - Methadone detox Sedative dependence - Librium detox Anna UE IV use w/ superficial excoriations - Bactrim and wound care ."
[2020-03-03] MEDS ORDERED: chlordiazePOXIDE HCL 10 MG CAPSULE PO PRN (17:43)
[2020-03-03] MEDS ORDERED: hydrOXYzine PAMOATE 25 MG CAPSULE (FP) PO SCH (18:00)
[2020-03-03] MEDS ORDERED: cloNIDine HCL 0.1 MG TABLET PO PRN (18:19)
[2020-03-03] MEDS ORDERED: METHADONE HCL 10 MG TABLET (FOR DETOX USE ONLY) PO ONE (18:45)
[2020-03-03] MEDS: PRENATAL VITAMINS W/ FOLIC ACID TABLET (FP) PO SCH (18:45)
[2020-03-03] MEDS: NICOTINE 7 MG/24 HOURS TOPICAL PATCH TD SCH (18:45)
[2020-03-03] MEDS: BACITRACIN 0.9 GM PACKET TP SCH (22:22)
[2020-03-03] MEDS: THIAMINE HCL 100 MG TABLET (FP) PO SCH (22:22)
[2020-03-03] MEDS: MELATONIN 5 MG TABLETS PO SCH (22:22)
[2020-03-03] MEDS: SULFAMETHOXAZOLE/TRIMETHOPRIM 800MG/160MG D.S. TABLET PO SCH (22:22)
[2020-03-03] MEDS: hydrOXYzine PAMOATE 25 MG CAPSULE (FP) PO PRN (22:22)
[2020-03-03] MEDS: chlordiazePOXIDE HCL 25 MG CAPSULE PO SCH (22:22)
[2020-03-03] MEDS ORDERED: chlordiazePOXIDE HCL 25 MG CAPSULE PO SCH (23:00)
[2020-03-04] MEDS: chlordiazePOXIDE HCL 25 MG CAPSULE PO SCH ×3 (06:14→22:24)
[2020-03-04] MEDS: hydrOXYzine PAMOATE 25 MG CAPSULE (FP) PO PRN ×2 (06:14→10:51)
[2020-03-04] MEDS: METHOCARBAMOL 500 MG TABLET PO PRN (09:20)
[2020-03-04] MEDS ORDERED: METHADONE HCL 5 MG TABLET (FOR DETOX USE ONLY) ONE (09:59)
[2020-03-04] MEDS ORDERED: METHADONE HCL 10 MG TABLET (FOR DETOX USE ONLY) ONE (10:00)
[2020-03-04] MEDS ORDERED: METHADONE (DETOX) 20 MG, METHADONE (DETOX) 5 MG PO ONE (10:00)
[2020-03-04 10:44] LABS: HEMATOCRIT 41.6 % (35.4-49); HEMOGLOBIN 13.7 GM/dL (11.7-16.9); MCH 28.9 pg (25.7-33.7); MEAN CELL VOLUME 87.5 fl (80-96); MEAN PLT VOLUME 8.8 fl (7.5-11.1); PLATELET COUNT 338 K/MM3 (134-434); RBC 4.76 M/mm3 (4.00-5.60); RDW 15.2 % (11.9-15.9); WHITE BLOOD COUNT 6.2 K/mm3 (4.0-10.0)
[2020-03-04] MEDS: BACITRACIN 0.9 GM PACKET TP SCH ×2 (10:50→22:24)
[2020-03-04] MEDS: SULFAMETHOXAZOLE/TRIMETHOPRIM 800MG/160MG D.S. TABLET PO SCH ×2 (10:50→22:24)
[2020-03-04] MEDS: PRENATAL VITAMINS W/ FOLIC ACID TABLET (FP) PO SCH (10:51)
[2020-03-04] MEDS: NICOTINE 7 MG/24 HOURS TOPICAL PATCH TD SCH (10:52)
[2020-03-04 11:03] LABS: POTASSIUM 4.4 mmol/L (3.5-5.1)
[2020-03-04 11:15] LABS: ALBUMIN 3.5 g/dl (3.4-5.0); BILIRUBIN,TOTAL 0.5 mg/dL (0.2-1); BLOOD UREA NITROGEN 15.2 mg/dL (7-18); CALCIUM 9.1 mg/dL (8.5-10.1); CREATININE 0.7 mg/dL (0.55-1.3); TOT PROT 7.9 g/dl (6.4-8.2)
--- NOTE | 2020-03-04 11:43 | PN ---
[facility] CIWA - CIWA Score Nausea/Vomitin-No Nausea/No Vomiting Muscle Tremors: None Anxiety: 3 Agitation: 2 Paroxysmal Sweats: 3 Orientation: 0-Oriented Tacttile Disturbances: 0-None Auditory Disturbances: 0-None Visual Disturbances: 0-None Headache: 2-Mild CIWA-Ar Total Score: 10 S COWS - Scale Resting Pulse: 1= [place] 81-100 Sweatin= Beads of Sweat on Face Restless Observation: 1= Difficult to Sit Still Pupil Size: 0= Normal to Room Light Bone or Joint Aches: 2= Severe Diffuse Aches Runny Nose/ Eye Tearin= None GI Upset > 30mins: 0= None Tremor Observation of Outstretched Hands: 0= None Yawning Observation: 1= 1-2x During Session Anxiety or Irritability: 2=Irritable/Anxious Goose Flesh Skin: 0=Smooth Skin COWS Score: 10 [facility] Progress Note (SOAP) Subjective: c/o anxiety, sweats, headache, muscle aches, and interrupted sleep. Objective: 03/04/20 11:42 Vital Signs 03/04/20 03/04/20 07:28 09:15 Temperature 97.1 F L 98.6 F Pulse Rate 73 89 Respiratory 18 18 Rate Blood Pressure 131/68 123/65 O2 Sat by Pulse 97 99 Oximetry (%) Laboratory Last Values WBC 6.2 K/mm3 (4.0-10.0) 03/04/20 08:30 RBC 4.76 M/mm3 (4.00-5.60) 03/04/20 08:30 Hgb 13.7 GM/dL (11.7-16.9) 03/04/20 08:30 Hct 41.6 % (35.4-49) 03/04/20 08:30 MCV 87.5 fl (80-96) 03/04/20 08:30 MCH 28.9 pg (25.7-33.7) 03/04/20 08:30 MCHC 33.0 g/dl (32.0-35.9) 03/04/20 08:30 RDW 15.2 % (11.9-15.9) 03/04/20 08:30 Plt Count 338 K/MM3 (134-434) 03/04/20 08:30 MPV 8.8 fl (7.5-11.1) 03/04/20 08:30 Sodium 139 mmol/L (136-145) 03/04/20 08:30 Potassium 4.4 mmol/L (3.5-5.1) 03/04/20 08:30 Chloride 106 mmol/L (98-107) 03/04/20 08:30 Carbon Dioxide 25 mmol/L (21-32) 03/04/20 08:30 Anion Gap 8 MMOL/L (8-16) 03/04/20 08:30 BUN 15.2 mg/dL (7-18) 03/04/20 08:30 Creatinine 0.7 mg/dL (0.55-1.3) 03/04/20 08:30 Est GFR (CKD-EPI)AfAm 150.95 03/04/20 08:30 Est GFR (CKD-EPI)NonAf 130.24 03/04/20 08:30 Random Glucose 83 mg/dL (74-106) 03/04/20 08:30 Calcium 9.1 mg/dL (8.5-10.1) 03/04/20 08:30 Total Bilirubin 0.5 mg/dL (0.2-1) 03/04/20 08:30 AST 28 U/L (15-37) 03/04/20 08:30 ALT 27 U/L (13-61) 03/04/20 08:30 Alkaline Phosphatase 117 U/L (45-117) 03/04/20 08:30 Total Protein 7.9 g/dl (6.4-8.2) 03/04/20 08:30 Albumin 3.5 g/dl (3.4-5.0) 03/04/20 08:30 Syphilis Serology Non-reactive (NONREACTIVE) 03/04/20 08:30 Labs noted. Assessment: 03/04/20 11:42 AOX3, in no acute respiratory distress. Full ROM, ambulating in the unit. Withdrawal symptoms. Plan: continue detox.
[2020-03-04 16:51] VITALS: BMI 44.4
[2020-03-04] MEDS: THIAMINE HCL 100 MG TABLET (FP) PO SCH (22:24)
[2020-03-04] MEDS: MELATONIN 5 MG TABLETS PO SCH (22:24)
[2020-03-05] MEDS ORDERED: chlordiazePOXIDE HCL 25 MG CAPSULE PO SCH (05:00)
[2020-03-05] MEDS: chlordiazePOXIDE 5 MG CAPSULE PO SCH ×3 (05:56→21:08)
[2020-03-05] MEDS: METHOCARBAMOL 500 MG TABLET PO PRN (05:57)
[2020-03-05] MEDS: hydrOXYzine PAMOATE 25 MG CAPSULE (FP) PO PRN ×3 (05:57→21:10)
[2020-03-05] MEDS: NICOTINE 7 MG/24 HOURS TOPICAL PATCH TD SCH (09:49)
[2020-03-05] MEDS: BACITRACIN 0.9 GM PACKET TP SCH ×2 (09:49→21:12)
[2020-03-05] MEDS: SULFAMETHOXAZOLE/TRIMETHOPRIM 800MG/160MG D.S. TABLET PO SCH ×2 (09:49→21:08)
[2020-03-05] MEDS ORDERED: METHADONE HCL 10 MG TABLET (FOR DETOX USE ONLY) PO ONE (10:00)
[2020-03-05] MEDS: PRENATAL VITAMINS W/ FOLIC ACID TABLET (FP) PO SCH (10:43)
--- NOTE | 2020-03-05 11:30 | PN ---
[facility] CIWA - CIWA Score Nausea/Vomitin-No Nausea/No Vomiting Muscle Tremors: None Anxiety: 3 Agitation: 0-Normal Activity Paroxysmal Sweats: 3 Orientation: 0-Oriented Tacttile Disturbances: 0-None Auditory Disturbances: 0-None Visual Disturbances: 0-None Headache: 2-Mild CIWA-Ar Total Score: 8 BHS COWS - Scale Resting Pulse: 1= [place] 81-100 Sweatin= Chills/Flushing Restless Observation: 1= Difficult to Sit Still Pupil Size: 0= Normal to Room Light Bone or Joint Aches: 2= Severe Diffuse Aches Runny Nose/ Eye Tearin= None GI Upset > 30mins: 0= None Tremor Observation of Outstretched Hands: 0= None Yawning Observation: 1= 1-2x During Session Anxiety or Irritability: 2=Irritable/Anxious Goose Flesh Skin: 0=Smooth Skin COWS Score: 8 S Progress Note (SOAP) Subjective: c/o anxiety, irritability, headache, muscle aches, and sweats. Objective: 03/05/20 11:29 Vital Signs 03/05/20 03/05/20 05:38 08:25 Temperature 97.3 F L 99.1 F Pulse Rate 53 L 96 H Respiratory 18 18 Rate Blood Pressure 112/68 110/73 O2 Sat by Pulse 96 Oximetry (%) Laboratory Last Values WBC 6.2 K/mm3 (4.0-10.0) 03/04/20 08:30 RBC 4.76 M/mm3 (4.00-5.60) 03/04/20 08:30 Hgb 13.7 GM/dL (11.7-16.9) 03/04/20 08:30 Hct 41.6 % (35.4-49) 03/04/20 08:30 MCV 87.5 fl (80-96) 03/04/20 08:30 MCH 28.9 pg (25.7-33.7) 03/04/20 08:30 MCHC 33.0 g/dl (32.0-35.9) 03/04/20 08:30 RDW 15.2 % (11.9-15.9) 03/04/20 08:30 Plt Count 338 K/MM3 (134-434) 03/04/20 08:30 MPV 8.8 fl (7.5-11.1) 03/04/20 08:30 Sodium 139 mmol/L (136-145) 03/04/20 08:30 Potassium 4.4 mmol/L (3.5-5.1) 03/04/20 08:30 Chloride 106 mmol/L (98-107) 03/04/20 08:30 Carbon Dioxide 25 mmol/L (21-32) 03/04/20 08:30 Anion Gap 8 MMOL/L (8-16) 03/04/20 08:30 BUN 15.2 mg/dL (7-18) 03/04/20 08:30 Creatinine 0.7 mg/dL (0.55-1.3) 03/04/20 08:30 Est GFR (CKD-EPI)AfAm 150.95 03/04/20 08:30 Est GFR (CKD-EPI)NonAf 130.24 03/04/20 08:30 Random Glucose 83 mg/dL (74-106) 03/04/20 08:30 Calcium 9.1 mg/dL (8.5-10.1) 03/04/20 08:30 Total Bilirubin 0.5 mg/dL (0.2-1) 03/04/20 08:30 AST 28 U/L (15-37) 03/04/20 08:30 ALT 27 U/L (13-61) 03/04/20 08:30 Alkaline Phosphatase 117 U/L (45-117) 03/04/20 08:30 Total Protein 7.9 g/dl (6.4-8.2) 03/04/20 08:30 Albumin 3.5 g/dl (3.4-5.0) 03/04/20 08:30 Syphilis Serology Non-reactive (NONREACTIVE) 03/04/20 08:30 HIV Ag/Ab Combo Qual Negative (NEGATIVE) 03/04/20 08:30 Labs noted. Assessment: 03/05/20 11:29 AOX3, in no acute respiratory distress. Full ROM, ambulating in the unit. Withdrawal symptoms. Plan: continue detox.
[2020-03-05] MEDS: MELATONIN 5 MG TABLETS PO SCH (21:08)
[2020-03-05] MEDS: THIAMINE HCL 100 MG TABLET (FP) PO SCH (21:08)
[2020-03-06] MEDS ORDERED: chlordiazePOXIDE HCL 10 MG CAPSULE PO PRN ×2
[2020-03-06] MEDS ORDERED: chlordiazePOXIDE HCL 10 MG CAPSULE PO SCH ×2 (05:00)
[2020-03-06] MEDS ORDERED: METHADONE (DETOX) 10 MG, METHADONE (DETOX) 5 MG PO ONE (10:00)
--- NOTE | 2020-03-06 10:43 | DS ---
[facility] Detox Discharge Summary Admission Date: 03/03/20 Discharge Date: 03/06/20 (Pt left AMA) - History Present History: Cocaine Dependence, Opioid Dependence, Sedative Dependence Additional Comments: Pt left AMA. Pt did not complete the detox protocol. Pt states, "I got stuff to do". An attempt to let pt stay and complete the detox protocol failed. Pt is encouraged to follow-up with an outpatient CD program and also to follow-up with his pmd which he verbalized understanding. Pt is AOX3, in no acute respiratory distress, Full ROM, and ambulatory. Pertinent Past History: h/o heroin, cocaine, and benzo use disorder. - Physical Exam Results Vital Signs: Vital Signs Temperature 97.3 F L 03/06/20 05:39 Pulse Rate 66 03/06/20 05:39 Respiratory Rate 18 03/06/20 05:39 Blood Pressure 116/51 L 03/06/20 05:39 O2 Sat by Pulse Oximetry (%) 97 03/06/20 05:39 Vital Signs 03/06/20 05:39 Temperature 97.3 F L Pulse Rate 66 Respiratory 18 Rate Blood Pressure 116/51 L O2 Sat by Pulse 97 Oximetry (%) Laboratory Last Values WBC 6.2 K/mm3 (4.0-10.0) 03/04/20 08:30 RBC 4.76 M/mm3 (4.00-5.60) 03/04/20 08:30 Hgb 13.7 GM/dL (11.7-16.9) 03/04/20 08:30 Hct 41.6 % (35.4-49) 03/04/20 08:30 MCV 87.5 fl (80-96) 03/04/20 08:30 MCH 28.9 pg (25.7-33.7) 03/04/20 08:30 MCHC 33.0 g/dl (32.0-35.9) 03/04/20 08:30 RDW 15.2 % (11.9-15.9) 03/04/20 08:30 Plt Count 338 K/MM3 (134-434) 03/04/20 08:30 MPV 8.8 fl (7.5-11.1) 03/04/20 08:30 Sodium 139 mmol/L (136-145) 03/04/20 08:30 Potassium 4.4 mmol/L (3.5-5.1) 03/04/20 08:30 Chloride 106 mmol/L (98-107) 03/04/20 08:30 Carbon Dioxide 25 mmol/L (21-32) 03/04/20 08:30 Anion Gap 8 MMOL/L (8-16) 03/04/20 08:30 BUN 15.2 mg/dL (7-18) 03/04/20 08:30 Creatinine 0.7 mg/dL (0.55-1.3) 03/04/20 08:30 Est GFR (CKD-EPI)AfAm 150.95 03/04/20 08:30 Est GFR (CKD-EPI)NonAf 130.24 03/04/20 08:30 Random Glucose 83 mg/dL (74-106) 03/04/20 08:30 Calcium 9.1 mg/dL (8.5-10.1) 03/04/20 08:30 Total Bilirubin 0.5 mg/dL (0.2-1) 03/04/20 08:30 AST 28 U/L (15-37) 03/04/20 08:30 ALT 27 U/L (13-61) 03/04/20 08:30 Alkaline Phosphatase 117 U/L (45-117) 03/04/20 08:30 Total Protein 7.9 g/dl (6.4-8.2) 03/04/20 08:30 Albumin 3.5 g/dl (3.4-5.0) 03/04/20 08:30 Syphilis Serology Non-reactive (NONREACTIVE) 03/04/20 08:30 COVID-19 ([place]) Not detected (Not Detected) 03/03/20 18:10 HIV Ag/Ab Combo Qual Negative (NEGATIVE) 03/04/20 08:30 Labs noted. Pertinent Admission Physical Exam Findings: withdrawal symptoms. - Treatment Hospital Course: Detox Protocol Followed - Medication Discharge Medications: Ambulatory Orders Naloxone HCl [Narcan] 4 mg NS ASDIR PRN #1 spray 02/07/20 Sulfamethoxazole/Trimethoprim [Bactrim Ds Tablet] 1 each PO BID 9 Days #18 tablet 03/06/20 - Diagnosis (1) Cocaine dependence Current Visit: No Status: Chronic Qualifiers: Substance use status: uncomplicated Qualified Code(s): F14.20 - Cocaine dependence, uncomplicated (2) Opioid dependence Current Visit: No Status: Chronic (3) Opioid dependence with withdrawal Current Visit: No Status: Acute (4) Nicotine dependence Current Visit: No Status: Chronic Qualifiers: Nicotine product type: cigarettes Substance use status: uncomplicated Qualified Code(s): F17.210 - Nicotine dependence, cigarettes, uncomplicated - AMA Did Patient Leave Against Medical Advice: Yes
[2020-03-06 10:57] VITALS: BP 139/82; PULSE 101; TEMP 98.4
[2020-03-07] MEDS ORDERED: chlordiazePOXIDE HCL 10 MG CAPSULE PO ONE (05:00)
[2020-03-07] MEDS ORDERED: chlordiazePOXIDE HCL 10 MG CAPSULE PO SCH (05:00)
[2020-03-07] MEDS ORDERED: METHADONE HCL 10 MG TABLET (FOR DETOX USE ONLY) PO ONE (10:00)
[2020-03-08] MEDS ORDERED: chlordiazePOXIDE HCL 10 MG CAPSULE PO ONE (05:00)
[2020-03-08] MEDS ORDERED: METHADONE HCL 5 MG TABLET (FOR DETOX USE ONLY) PO ONE (06:00)
== END 2020-03-06 10:11 | disposition left against medical advice (07) | DRG 770 ==
LOC: YASAS 13:55 → Y6N 18:15
PROVIDERS: ADMIT Allergy & Immunology; ATTEND Allergy & Immunology
PROC: HZ2ZZZZ Detoxification Services for Substance Abuse Treatment (ICD-10-PCS; principal; 2020-03-03)
DX: F11.23 Opioid dependence with withdrawal (principal); F14.20 Cocaine dependence, uncomplicated; F13.20 Sedative, hypnotic or anxiolytic dependence, uncomplicated; F17.210 Nicotine dependence, cigarettes, uncomplicated; S40.812A Abrasion of left upper arm, initial encounter; S40.811A Abrasion of right upper arm, initial encounter; X58.XXXA Exposure to other specified factors, initial encounter; Y92.238 Other place in hospital as the place of occurrence of the external cause; Y99.8 Other external cause status; Z56.0 Unemployment, unspecified; Z59.0 Homelessness; Z91.013 Allergy to seafood; Y93.9 Activity, unspecified
CPT/HCPCS: 36415; 80053; 85027; 86780; 87389; J0735; Q0162; U0003

== ENCOUNTER 2021-11-23 16:54 | Inpatient (IN) | payer OTHER ==
[2021-11-23 17:52] VITALS: BMI 20.7
[2021-11-23] MEDS ORDERED: MAG HYDROX/AL HYDROX/SIMETH 30 ML UNIT-DOSE CUP PO PRN (19:43)
[2021-11-23] MEDS ORDERED: BENZOCAINE/MENTHOL (CHLORASEPTIC ) LOZENGE MM PRN (19:43)
[2021-11-23] MEDS ORDERED: ONDANSETRON *ODT* 4 MG TABLET SL PRN (19:43)
[2021-11-23] MEDS ORDERED: IBUPROFEN 400 MG TABLET (FP) PO PRN (19:43)
[2021-11-23] MEDS ORDERED: NICOTINE 10 MG CARTRIDGE (INHALER) IH PRN (19:43)
[2021-11-23] MEDS ORDERED: ACETAMINOPHEN 325 MG TABLET (FP) PO PRN ×2 (19:43)
[2021-11-23] MEDS ORDERED: LORazepam 1 MG TABLET PO PRN (19:43)
[2021-11-23] MEDS ORDERED: MAGNESIUM CITRATE 300 ML BOTTLE PO PRN (19:43)
[2021-11-23] MEDS ORDERED: BISMUTH SUBSALICYLATE 524 MG/30 ML PO PRN (19:43)
[2021-11-23] MEDS ORDERED: cloNIDine HCL 0.1 MG TABLET PO PRN (19:43)
[2021-11-23] MEDS ORDERED: methaDONE HCL 10 MG TABLET (FOR DETOX USE ONLY) PO ONE (19:43)
[2021-11-23] MEDS ORDERED: LOPERAMIDE HCL 2 MG CAPSULE PO PRN (19:43)
[2021-11-23] MEDS ORDERED: LORazepam 2 MG TABLET PO ONE (19:43)
[2021-11-23] MEDS ORDERED: MAGNESIUM HYDROX 2400MG/30ML ORAL SUSPENSION 30 ML CUP PO PRN (19:43)
[2021-11-23] MEDS ORDERED: DICYCLOMINE HCL 10 MG CAPSULE PO PRN (19:43)
[2021-11-23] MEDS: LORazepam 2 MG TABLET PO SCH (23:01)
[2021-11-23] MEDS: THIAMINE HCL 100 MG TABLET (FP) PO SCH (23:03)
[2021-11-23] MEDS: MELATONIN 5 MG TABLETS PO SCH (23:04)
[2021-11-24] MEDS: PRENATAL VITAMINS W/ FOLIC ACID TABLET (FP) PO SCH ×2 (00:11→10:44)
[2021-11-24] MEDS: LORazepam 2 MG TABLET PO SCH ×4 (05:44→22:32)
[2021-11-24] MEDS ORDERED: methaDONE HCL 10 MG TABLET (FOR DETOX USE ONLY) ONE (09:16)
[2021-11-24 10:06] LABS: HEMATOCRIT 36.4 % (35.4-49); HEMOGLOBIN 12.2 GM/dL (11.7-16.9); MCH 29.4 pg (25.7-33.7); MCHC 33.5 g/dl (32.0-35.9); MEAN CELL VOLUME 87.8 fl (80-96); MEAN PLT VOLUME 7.8 fl (7.5-11.1); PLATELET COUNT 332 10^3/uL (134-434); RBC 4.15 M/mm3 (4.00-5.60); RDW 13.8 % (11.9-15.9); WHITE BLOOD COUNT 4.7 K/mm3 (4.0-10.0)
[2021-11-24 10:26] LABS: CALCIUM 8.8 mg/dL (8.5-10.1); CREATININE 0.6 mg/dL (0.55-1.3)
[2021-11-24 10:28] LABS: BILIRUBIN,TOTAL 0.2 mg/dL (0.2-1); TOT PROT 6.7 g/dl (6.4-8.2)
[2021-11-24] MEDS: METHOCARBAMOL 500 MG TABLET PO PRN (10:45)
[2021-11-24] MEDS: NICOTINE POLACRILEX 4 MG GUM BUC PRN ×2 (10:58→22:34)
[2021-11-24] MEDS: MELATONIN 5 MG TABLETS PO SCH (22:31)
[2021-11-24] MEDS: busPIRone HCL 10 MG TABLET (FP) PO SCH (22:32)
[2021-11-24] MEDS: THIAMINE HCL 100 MG TABLET (FP) PO SCH (22:32)
[2021-11-25] MEDS: LORazepam 1 MG TABLET PO SCH ×2 (04:00→10:20)
[2021-11-25] MEDS: METHOCARBAMOL 500 MG TABLET PO PRN (07:37)
[2021-11-25 09:35] VITALS: BP 141/79; PULSE 98; TEMP 98.1
[2021-11-25] MEDS ORDERED: ARIPiprazole 5 MG TABLET PO SCH (10:00)
[2021-11-25] MEDS ORDERED: methaDONE HCL 10 MG TABLET (FOR DETOX USE ONLY) PO ONE (10:00)
[2021-11-25] MEDS ORDERED: ESCITALOPRAM OXALATE 10 MG TABLET PO SCH (10:00)
[2021-11-25 10:07] LABS: SARS-CoV-2 NAA Not Detected (Not Detected)
[2021-11-25 10:07] LABS: SARS-CoV-2 NAA Not Detected (Not Detected)
[2021-11-25] MEDS: PRENATAL VITAMINS W/ FOLIC ACID TABLET (FP) PO SCH (10:18)
[2021-11-25] MEDS: busPIRone HCL 10 MG TABLET (FP) PO SCH (10:18)
[2021-11-26] MEDS ORDERED: LORazepam 0.5 MG TABLET PO PRN
[2021-11-26] MEDS ORDERED: LORazepam 0.5 MG TABLET PO SCH (05:00)
[2021-11-27] MEDS ORDERED: LORazepam 0.5 MG TABLET PO ONE (05:00)
[2021-11-27] MEDS ORDERED: methaDONE HCL 10 MG TABLET (FOR DETOX USE ONLY) PO ONE (10:00)
== END 2021-11-25 01:26 | disposition left against medical advice (07) | DRG 770 ==
LOC: YASAS 16:54 → Y6N 21:31
PROVIDERS: ADMIT Allergy & Immunology; ATTEND Surgery
PROC: HZ2ZZZZ Detoxification Services for Substance Abuse Treatment (ICD-10-PCS; principal; 2021-11-23)
DX: F11.23 Opioid dependence with withdrawal (principal); F13.230 Sedative, hypnotic or anxiolytic dependence with withdrawal, uncomplicated; F14.20 Cocaine dependence, uncomplicated; F12.20 Cannabis dependence, uncomplicated; F17.213 Nicotine dependence, cigarettes, with withdrawal; F31.9 Bipolar disorder, unspecified; F19.24 Other psychoactive substance dependence with psychoactive substance-induced mood disorder; F39 Unspecified mood [affective] disorder; B18.2 Chronic viral hepatitis C; R63.4 Abnormal weight loss; Z68.20 Body mass index [BMI] 20.0-20.9, adult; Z28.311 Partially vaccinated for COVID-19; Z59.00 Homelessness unspecified; Z56.0 Unemployment, unspecified
CPT/HCPCS: 36415; 80053; 85027; 86780; C9803-CS; U0003; U0005

== ENCOUNTER 2022-01-04 11:42 | Inpatient (IN) | payer OTHER ==
[2022-01-04 12:34] VITALS: BMI 21.2
[2022-01-04] MEDS ORDERED: IBUPROFEN 600 MG TABLET (FP) PO PRN (12:54)
[2022-01-04] MEDS ORDERED: MAG HYDROX/AL HYDROX/SIMETH 30 ML UNIT-DOSE CUP PO PRN (12:54)
[2022-01-04] MEDS ORDERED: ONDANSETRON *ODT* 4 MG TABLET SL PRN (12:54)
[2022-01-04] MEDS ORDERED: methaDONE HCL 10 MG TABLET (FOR DETOX USE ONLY) PO ONE ×2 (12:54→17:00)
[2022-01-04] MEDS ORDERED: BENZOCAINE/MENTHOL (CHLORASEPTIC ) LOZENGE MM PRN (12:54)
[2022-01-04] MEDS ORDERED: BISMUTH SUBSALICYLATE 524 MG/30 ML PO PRN (12:54)
[2022-01-04] MEDS ORDERED: LOPERAMIDE HCL 2 MG CAPSULE PO PRN (12:54)
[2022-01-04] MEDS ORDERED: NICOTINE 10 MG CARTRIDGE (INHALER) IH PRN (12:54)
[2022-01-04] MEDS ORDERED: ACETAMINOPHEN 325 MG TABLET (FP) PO PRN ×2 (12:54)
[2022-01-04] MEDS ORDERED: IBUPROFEN 400 MG TABLET (FP) PO PRN (12:54)
[2022-01-04] MEDS ORDERED: MAGNESIUM CITRATE 300 ML BOTTLE PO PRN (12:54)
[2022-01-04] MEDS ORDERED: DICYCLOMINE HCL 10 MG CAPSULE PO PRN (12:54)
[2022-01-04] MEDS ORDERED: cloNIDine HCL 0.1 MG TABLET PO PRN (12:54)
[2022-01-04] MEDS ORDERED: MAGNESIUM HYDROX 2400MG/30ML ORAL SUSPENSION 30 ML CUP PO PRN (12:54)
[2022-01-04] MEDS ORDERED: NALOXONE HCL (KLOXXADO) 8 MG SPRAY NS PRN (12:59)
[2022-01-04] MEDS: hydrOXYzine PAMOATE 25 MG CAPSULE (FP) PO SCH ×3 (14:34→22:27)
[2022-01-04] MEDS: METHOCARBAMOL 500 MG TABLET PO PRN (14:35)
[2022-01-04] MEDS: PRENATAL VITAMINS W/ FOLIC ACID TABLET (FP) PO SCH (14:35)
[2022-01-04] MEDS: NICOTINE 21 MG/24 HOURS TOPICAL PATCH TD SCH (14:35)
[2022-01-04] MEDS: DOXYCYCLINE HYCLATE 100 MG TABLET PO SCH (18:25)
[2022-01-04 20:32] LABS: ALBUMIN 3.3 g/dl (3.4-5.0)
[2022-01-04 20:35] LABS: CREATININE 0.8 mg/dL (0.55-1.3); HEMATOCRIT 37.2 % (35.4-49); HEMOGLOBIN 12.3 GM/dL (11.7-16.9); MCH 28.9 pg (25.7-33.7); MCHC 33.1 g/dl (32.0-35.9); MEAN CELL VOLUME 87.3 fl (80-96); MEAN PLT VOLUME 7.9 fl (7.5-11.1); PLATELET COUNT 492 10^3/uL (134-434); RBC 4.26 M/mm3 (4.00-5.60); RDW 14.2 % (11.9-15.9); WHITE BLOOD COUNT 5.9 K/mm3 (4.0-10.0)
[2022-01-04 20:36] LABS: TOT PROT 8.4 g/dl (6.4-8.2)
[2022-01-04 20:37] LABS: BILIRUBIN,TOTAL 0.4 mg/dL (0.2-1)
[2022-01-04] MEDS ORDERED: MELATONIN 5 MG TABLETS PO SCH (22:00)
[2022-01-04] MEDS: THIAMINE HCL 100 MG TABLET (FP) PO SCH (22:27)
[2022-01-05] MEDS: hydrOXYzine PAMOATE 25 MG CAPSULE (FP) PO SCH ×5 (05:32→22:57)
[2022-01-05] MEDS: METHOCARBAMOL 500 MG TABLET PO PRN ×2 (05:33→10:33)
[2022-01-05] MEDS ORDERED: methaDONE HCL 10 MG TABLET (FOR DETOX USE ONLY) ONE (09:04)
[2022-01-05] MEDS: PRENATAL VITAMINS W/ FOLIC ACID TABLET (FP) PO SCH (10:33)
[2022-01-05] MEDS: DOXYCYCLINE HYCLATE 100 MG TABLET PO SCH ×2 (10:34→17:31)
[2022-01-05] MEDS: NICOTINE 21 MG/24 HOURS TOPICAL PATCH TD SCH (10:34)
[2022-01-05] MEDS ORDERED: traZODone HCL 50 MG TABLET (FP) PO PRN (22:00)
[2022-01-05] MEDS: THIAMINE HCL 100 MG TABLET (FP) PO SCH (22:57)
[2022-01-05] MEDS: busPIRone HCL 10 MG TABLET (FP) PO SCH (22:57)
[2022-01-06] MEDS: hydrOXYzine PAMOATE 25 MG CAPSULE (FP) PO SCH ×4 (06:00→14:49)
[2022-01-06] MEDS ORDERED: ARIPiprazole 5 MG TABLET PO SCH (10:00)
[2022-01-06] MEDS ORDERED: ESCITALOPRAM OXALATE 10 MG TABLET PO SCH (10:00)
[2022-01-06] MEDS ORDERED: methaDONE HCL 10 MG TABLET (FOR DETOX USE ONLY) PO ONE (10:00)
[2022-01-06] MEDS: PRENATAL VITAMINS W/ FOLIC ACID TABLET (FP) PO SCH (10:30)
[2022-01-06] MEDS: DOXYCYCLINE HYCLATE 100 MG TABLET PO SCH (10:30)
[2022-01-06] MEDS: busPIRone HCL 10 MG TABLET (FP) PO SCH (10:31)
[2022-01-06] MEDS: NICOTINE 21 MG/24 HOURS TOPICAL PATCH TD SCH (10:31)
[2022-01-06 13:32] VITALS: BP 124/70; PULSE 68; TEMP 97.3
[2022-01-08] MEDS ORDERED: methaDONE HCL 10 MG TABLET (FOR DETOX USE ONLY) PO ONE (10:00)
== END 2022-01-06 15:58 | disposition left against medical advice (07) | DRG 770 ==
LOC: YASAS 11:42 → Y6N 13:01
PROVIDERS: ADMIT Allergy & Immunology; ATTEND Surgery
PROC: HZ2ZZZZ Detoxification Services for Substance Abuse Treatment (ICD-10-PCS; principal; 2022-01-04)
DX: F11.23 Opioid dependence with withdrawal (principal); F14.20 Cocaine dependence, uncomplicated; F12.20 Cannabis dependence, uncomplicated; F17.213 Nicotine dependence, cigarettes, with withdrawal; F25.1 Schizoaffective disorder, depressive type; F19.24 Other psychoactive substance dependence with psychoactive substance-induced mood disorder; F19.282 Other psychoactive substance dependence with psychoactive substance-induced sleep disorder; F39 Unspecified mood [affective] disorder; B18.2 Chronic viral hepatitis C; R63.4 Abnormal weight loss; Z56.0 Unemployment, unspecified; Z59.00 Homelessness unspecified
CPT/HCPCS: 36415; 80053; 82962; 85027; 86780; C9803-CS; U0003; U0005

== ENCOUNTER 2022-02-24 16:38 | Inpatient (IN) | payer OTHER ==
[2022-02-24 19:18] VITALS: BMI 20.1
[2022-02-24] MEDS ORDERED: methaDONE HCL 10 MG TABLET (FOR DETOX USE ONLY) PO ONE (20:43)
[2022-02-24] MEDS ORDERED: LOPERAMIDE HCL 2 MG CAPSULE PO PRN (20:43)
[2022-02-24] MEDS ORDERED: NICOTINE POLACRILEX 2 MG GUM BUC PRN (20:43)
[2022-02-24] MEDS ORDERED: MAG HYDROX/AL HYDROX/SIMETH 30 ML UNIT-DOSE CUP PO PRN (20:43)
[2022-02-24] MEDS ORDERED: ACETAMINOPHEN 325 MG TABLET (FP) PO PRN ×2 (20:43)
[2022-02-24] MEDS ORDERED: DICYCLOMINE HCL 10 MG CAPSULE PO PRN (20:43)
[2022-02-24] MEDS ORDERED: IBUPROFEN 600 MG TABLET (FP) PO PRN (20:43)
[2022-02-24] MEDS ORDERED: BISMUTH SUBSALICYLATE 524 MG/30 ML PO PRN (20:43)
[2022-02-24] MEDS ORDERED: IBUPROFEN 400 MG TABLET (FP) PO PRN (20:43)
[2022-02-24] MEDS ORDERED: BENZOCAINE/MENTHOL (CHLORASEPTIC ) LOZENGE MM PRN (20:43)
[2022-02-24] MEDS ORDERED: MAGNESIUM CITRATE 300 ML BOTTLE PO PRN (20:43)
[2022-02-24] MEDS ORDERED: ONDANSETRON *ODT* 4 MG TABLET SL PRN (20:43)
[2022-02-24] MEDS ORDERED: MAGNESIUM HYDROX 2400MG/30ML ORAL SUSPENSION 30 ML CUP PO PRN (20:43)
[2022-02-25] MEDS: MELATONIN 5 MG TABLETS PO SCH ×2 (01:07→22:29)
[2022-02-25] MEDS: THIAMINE HCL 100 MG TABLET (FP) PO SCH ×2 (01:07→22:29)
[2022-02-25] MEDS ORDERED: methaDONE HCL 10 MG TABLET (FOR DETOX USE ONLY) PO ONE (01:15)
[2022-02-25 10:24] LABS: HEMATOCRIT 35.1 % (35.4-49); HEMOGLOBIN 12.2 GM/dL (11.7-16.9); MCH 29.9 pg (25.7-33.7); MCHC 34.7 g/dl (32.0-35.9); MEAN CELL VOLUME 86.2 fl (80-96); MEAN PLT VOLUME 7.8 fl (7.5-11.1); PLATELET COUNT 312 10^3/uL (134-434); RBC 4.07 M/mm3 (4.00-5.60); RDW 15.4 % (11.9-15.9); WHITE BLOOD COUNT 4.7 K/mm3 (4.0-10.0)
[2022-02-25] MEDS: METHOCARBAMOL 500 MG TABLET PO PRN ×2 (10:46→18:23)
[2022-02-25] MEDS: PRENATAL VITAMINS W/ FOLIC ACID TABLET (FP) PO SCH (10:47)
[2022-02-25] MEDS: NICOTINE 21 MG/24 HOURS TOPICAL PATCH TD SCH (10:48)
[2022-02-25 10:49] LABS: BLOOD UREA NITROGEN 13.6 mg/dL (7-18); CALCIUM 8.6 mg/dL (8.5-10.1)
[2022-02-25 10:50] LABS: ALBUMIN 2.8 g/dl (3.4-5.0)
[2022-02-25 10:53] LABS: CREATININE 0.7 mg/dL (0.55-1.3)
[2022-02-25 10:54] LABS: BILIRUBIN,TOTAL 0.3 mg/dL (0.2-1); TOT PROT 6.2 g/dl (6.4-8.2)
[2022-02-25] MEDS: cloNIDine HCL 0.1 MG TABLET PO PRN (22:30)
[2022-02-26] MEDS ORDERED: methaDONE HCL 10 MG TABLET (FOR DETOX USE ONLY) PO ONE (10:00)
[2022-02-26] MEDS: PRENATAL VITAMINS W/ FOLIC ACID TABLET (FP) PO SCH (10:58)
[2022-02-26] MEDS: cloNIDine HCL 0.1 MG TABLET PO PRN (10:59)
[2022-02-26] MEDS: NICOTINE 21 MG/24 HOURS TOPICAL PATCH TD SCH (10:59)
[2022-02-26] MEDS: METHOCARBAMOL 500 MG TABLET PO PRN (10:59)
[2022-02-26] MEDS: MELATONIN 5 MG TABLETS PO SCH (22:54)
[2022-02-26] MEDS: THIAMINE HCL 100 MG TABLET (FP) PO SCH (22:54)
[2022-02-26 23:04] VITALS: RESP 18
[2022-02-27 09:52] VITALS: BP 122/61; PULSE 81; TEMP 97.3
[2022-02-28] MEDS ORDERED: methaDONE HCL 10 MG TABLET (FOR DETOX USE ONLY) PO ONE (10:00)
== END 2022-02-27 09:05 | disposition left against medical advice (07) | DRG 770 ==
LOC: YASAS 16:38 → Y6N 22:50
PROVIDERS: ADMIT Allergy & Immunology; ATTEND Surgery
PROC: HZ2ZZZZ Detoxification Services for Substance Abuse Treatment (ICD-10-PCS; principal; 2022-02-24)
DX: F11.23 Opioid dependence with withdrawal (principal); F14.20 Cocaine dependence, uncomplicated; F17.210 Nicotine dependence, cigarettes, uncomplicated; F31.9 Bipolar disorder, unspecified; F19.280 Other psychoactive substance dependence with psychoactive substance-induced anxiety disorder; F19.282 Other psychoactive substance dependence with psychoactive substance-induced sleep disorder; Z28.311 Partially vaccinated for COVID-19; Z86.19 Personal history of other infectious and parasitic diseases; Z91.51 Personal history of suicidal behavior; Z59.00 Homelessness unspecified
CPT/HCPCS: 36415; 80053; 85027; 86780; 87811; 93005; 93010; C9803-CS; J0735; U0003; U0005

== ENCOUNTER 2022-04-02 20:13 | Inpatient (IN) | payer OTHER ==
[2022-04-03] MEDS ORDERED: LOPERAMIDE HCL 2 MG CAPSULE PO PRN (04:42)
[2022-04-03] MEDS ORDERED: NICOTINE POLACRILEX 2 MG GUM BUC PRN (04:42)
[2022-04-03] MEDS ORDERED: ACETAMINOPHEN 325 MG TABLET (FP) PO PRN ×2 (04:42)
[2022-04-03] MEDS ORDERED: BENZOCAINE/MENTHOL (CHLORASEPTIC ) LOZENGE MM PRN (04:42)
[2022-04-03] MEDS ORDERED: MAG HYDROX/AL HYDROX/SIMETH 30 ML UNIT-DOSE CUP PO PRN (04:42)
[2022-04-03] MEDS ORDERED: IBUPROFEN 600 MG TABLET (FP) PO PRN (04:42)
[2022-04-03] MEDS ORDERED: MAGNESIUM HYDROX 2400MG/30ML ORAL SUSPENSION 30 ML CUP PO PRN (04:42)
[2022-04-03] MEDS ORDERED: DICYCLOMINE HCL 10 MG CAPSULE PO PRN (04:42)
[2022-04-03] MEDS ORDERED: ONDANSETRON *ODT* 4 MG TABLET SL PRN (04:42)
[2022-04-03] MEDS ORDERED: NALOXONE HCL (KLOXXADO) 8 MG SPRAY NS PRN (04:42)
[2022-04-03] MEDS ORDERED: MAGNESIUM CITRATE 300 ML BOTTLE PO PRN (04:42)
[2022-04-03] MEDS ORDERED: BISMUTH SUBSALICYLATE 524 MG/30 ML PO PRN (04:42)
[2022-04-03] MEDS ORDERED: ARIPiprazole 5 MG TABLET PO SCH (10:00)
[2022-04-03] MEDS: PRENATAL VITAMINS W/ FOLIC ACID TABLET (FP) PO SCH (10:32)
[2022-04-03] MEDS: ARIPiprazole 2 MG TABLET PO SCH (10:32)
[2022-04-03] MEDS: NICOTINE 21 MG/24 HOURS TOPICAL PATCH TD SCH (10:34)
[2022-04-03] MEDS ORDERED: methaDONE HCL 10 MG TABLET (FOR DETOX USE ONLY) PO ONE (10:36)
[2022-04-03] MEDS ORDERED: cloNIDine HCL 0.1 MG TABLET PO PRN (10:36)
[2022-04-03] MEDS: METHOCARBAMOL 500 MG TABLET PO PRN ×2 (11:03→22:38)
[2022-04-03] MEDS ORDERED: MELATONIN 5 MG TABLETS PO SCH (22:00)
[2022-04-03] MEDS: traZODone HCL 50 MG TABLET (FP) PO SCH (22:37)
[2022-04-03] MEDS: THIAMINE HCL 100 MG TABLET (FP) PO SCH (22:37)
[2022-04-03] MEDS: IBUPROFEN 400 MG TABLET (FP) PO PRN (22:39)
[2022-04-04] MEDS: ARIPiprazole 2 MG TABLET PO SCH (09:33)
[2022-04-04] MEDS: METHOCARBAMOL 500 MG TABLET PO PRN ×2 (09:33→22:39)
[2022-04-04] MEDS: PRENATAL VITAMINS W/ FOLIC ACID TABLET (FP) PO SCH (09:33)
[2022-04-04] MEDS: NICOTINE 21 MG/24 HOURS TOPICAL PATCH TD SCH (09:35)
[2022-04-04 13:29] LABS: HEMATOCRIT 36.4 % (35.4-49); MCH 28.6 pg (25.7-33.7); MCHC 32.9 g/dl (32.0-35.9); MEAN CELL VOLUME 86.9 fl (80-96); MEAN PLT VOLUME 8.2 fl (7.5-11.1); PLATELET COUNT 317 10^3/uL (134-434); RBC 4.19 M/mm3 (4.00-5.60); RDW 15.3 % (11.9-15.9); WHITE BLOOD COUNT 3.8 K/mm3 (4.0-10.0)
[2022-04-04 13:32] LABS: ALBUMIN 2.9 g/dl (3.4-5.0); BLOOD UREA NITROGEN 14.7 mg/dL (7-18); CALCIUM 8.6 mg/dL (8.5-10.1)
[2022-04-04 13:35] LABS: CREATININE 0.7 mg/dL (0.55-1.3)
[2022-04-04 13:37] LABS: BILIRUBIN,TOTAL 0.3 mg/dL (0.2-1); TOT PROT 6.6 g/dl (6.4-8.2)
[2022-04-04] MEDS: traZODone HCL 50 MG TABLET (FP) PO SCH (22:39)
[2022-04-04] MEDS: THIAMINE HCL 100 MG TABLET (FP) PO SCH (22:39)
[2022-04-04] MEDS: IBUPROFEN 400 MG TABLET (FP) PO PRN (22:39)
[2022-04-05] MEDS: METHOCARBAMOL 500 MG TABLET PO PRN (05:48)
[2022-04-05 06:51] VITALS: RESP 18
[2022-04-05 09:39] VITALS: BP 121/67; PULSE 74; TEMP 97.4
[2022-04-05] MEDS ORDERED: methaDONE HCL 10 MG TABLET (FOR DETOX USE ONLY) PO ONE (10:00)
[2022-04-05] MEDS: ARIPiprazole 2 MG TABLET PO SCH (10:18)
[2022-04-05] MEDS: PRENATAL VITAMINS W/ FOLIC ACID TABLET (FP) PO SCH (10:18)
[2022-04-05] MEDS: NICOTINE 21 MG/24 HOURS TOPICAL PATCH TD SCH (10:21)
[2022-04-07] MEDS ORDERED: methaDONE HCL 10 MG TABLET (FOR DETOX USE ONLY) PO ONE (10:00)
== END 2022-04-05 11:21 | disposition left against medical advice (07) | DRG 770 ==
LOC: YASAS 20:13 → Y3N 04-03 05:34
PROVIDERS: ADMIT Allergy & Immunology; ATTEND Allergy & Immunology
PROC: HZ2ZZZZ Detoxification Services for Substance Abuse Treatment (ICD-10-PCS; principal; 2022-04-03)
DX: F11.23 Opioid dependence with withdrawal (principal); F14.20 Cocaine dependence, uncomplicated; F17.210 Nicotine dependence, cigarettes, uncomplicated; F19.280 Other psychoactive substance dependence with psychoactive substance-induced anxiety disorder; F19.282 Other psychoactive substance dependence with psychoactive substance-induced sleep disorder; F31.9 Bipolar disorder, unspecified; F41.9 Anxiety disorder, unspecified; E88.09 Other disorders of plasma-protein metabolism, not elsewhere classified; Z28.311 Partially vaccinated for COVID-19; Z59.00 Homelessness unspecified; Z56.0 Unemployment, unspecified
CPT/HCPCS: 36415; 80053; 85027; 86780